=== PATIENT | male | born 1950 | race Caucasian/White ===

== ENCOUNTER 2017-01-14 19:26 | Inpatient (IN) | payer OTHER ==
[~2017-01-14] VITALS: Ht 185.4 cm; Wt 102.2 kg
[~2017-01-14 19:26] MED LIST: ALBUAER19 INH; RXC5 PO; SPRIN/30 INH
[2017-01-14] MEDS ORDERED: SYMIN160 INH (20:19)
[2017-01-14] MEDS ORDERED: MONT1TAB3 PO (20:19)
[2017-01-14] MEDS ORDERED: CIPR1TAB10 PO (20:19)
[2017-01-14] MEDS ORDERED: LISI-725 PO (20:19)
[2017-01-14] MEDS ORDERED: ASPI325T39 PO (20:20)
[2017-01-14] MEDS ORDERED: VNTHFA/IN INH (20:22)
[2017-01-14 21:40] LABS: BASO % 0.5 %; BASO ABS # 0.06 K/uL (0-0.2); COMPLETE YES; EOS % 2.2 %; HEMATOCRIT 43.3 % (42-52); IG% 0.4 %; LYMPH % 21.9 %; LYMPH ABS # 2.42 K/uL (1.2-3.4); MEAN CELL VOLUME 99.5 fL (80-100); MEAN CORPUSCULAR HEMOGLOBIN 34.7 pg (25-34); MEAN CORPUSCULAR HGB CONC 34.9 g/dl (32-36); MEAN PLATELET VOLUME 11.3 fL (7.4-10.4); MONO % 11.8 %; NEUT % 63.2 %; PLATELET COUNT 285 K/uL (130-400); RED BLOOD COUNT 4.35 M/uL (4.7-6.1); WHITE BLOOD COUNT 11.06 K/uL (4.8-10.8)
[2017-01-14 21:47] LABS: PARTIAL THROMBOPLASTIN RATIO 1.1
[2017-01-14 21:52] LABS: BUN/CREATININE RATIO 5.8 (10-20); CALCIUM 8.6 mg/dl (8.5-10.1); CREATININE 2.7 mg/dl (0.60-1.40); POTASSIUM 3.3 mmol/L (3.5-5.1)
--- NOTE | 2017-01-14 22:04 | DIAGNOSTIC IMAGING REPORT ---
SINGLE VIEW CHEST CLINICAL HISTORY: GI bleed. FINDINGS: 2 AP, portable, upright chest radiographs are compared to study dated 03/20/2014. The examination is degraded by portable technique and patient rotation. The heart is top normal for projection. The lungs appear hyperinflated hyperlucent. The appearance suggests obstructive physiology. Chronic interstitial thickening is similar to previous. No airspace consolidation or pleural effusion are identified. A small calcified granulomas noted on the right. No pneumothorax is seen. The skeletal structures are osteopenic. The bony thorax is grossly intact. IMPRESSION: Findings suggest obstructive physiology. There is no acute cardiopulmonary abnormality. Electronically signed by: Jono Monroy M.D. 01/14/2017 10:02 PM Dictated Date/Time: 01/14/2017 10:00 PM
[2017-01-14] MEDS ORDERED: POTASSIUM CHLORIDE 10 MEQ TABCR PO STA (22:53)
--- NOTE | 2017-01-14 23:17 | EMERGENCY ROOM VISIT NOTE ---
History Report prepared by [place]: Jama Richardson Under the Supervision of: Dr. Shiv Lenz D.O. First contact with patient: 20:49 Chief Complaint: RECTAL BLEEDING Stated Complaint: BLOOD IN STOOLS Nursing Triage Summary: Patient reports he had a colon infection and states "it's getting a little bit bloody." Patient reports bright red and dark blood with bowel movements. History of Present Illness The patient is a 66 year old male who presents to the Emergency Room with complaints of an episode of rectal bleeding today. He notes that he had blood with his bowel movements, and that it has been mostly bright red blood rather than stool. He also admits to having rectal pain which began last week. Source of History: patient Onset: earlier today Position: other (rectum) Quality: other (bright red blood in stool) Timing: other (episode) Note: The patient notes having rectal pain. Review of Systems See HPI for pertinent positives & negatives. A total of 10 systems reviewed and were otherwise negative. Past Medical & Surgical No past medical history stated. Family History No family history stated. Social History Smoking Status: Current Every Day Smoker Marital Status: Current/Historical Medications Scheduled Budesonide/Formoterol Fumarate (Symbicort 160/4.5 Inhaler ), 1 PUFFS INH BID Ciprofloxacin Hcl (Cipro), 500 MG PO BID Lisinopril (Zestril), 20 MG PO DAILY Montelukast Sodium (Singulair), 10 MG PO HS Tiotropium [place] (Spiriva Handihaler), 1 CAP INH DAILY Scheduled PRN Albuterol Hfa (Ventolin Hfa), 2 PUFFS INH Q6H PRN for Shortness of Breath Aspirin (Aspirin Ec), 325 MG PO BID PRN for Pain Allergies Coded Allergies: No Known Allergies (Unverified , 10/11/12) Physical Exam Vital Signs Date Time Temp Pulse Resp B/P Pulse Ox O2 Delivery O2 Flow Rate FiO2 01/14/17 21:47 86 20 152/92 94 Room Air 01/14/17 20:58 91 01/14/17 19:29 37.0 93 18 154/87 96 Room Air Physical Exam CONSTITUTIONAL/VITAL SIGNS: Reviewed / noted above. GENERAL: Non-toxic in appearance. INTEGUMENTARY: Warm, dry, and [place]. HEAD: Normocephalic. EYES: without scleral icterus or trauma. ENT/OROPHARYNX: clear and moist. LYMPHADENOPATHY/NECK: Is supple without lymphadenopathy or meningismus. RESPIRATORY: Lungs clear and equal. CARDIOVASCULAR: Regular rate and rhythm. GI/ABDOMEN: Soft and nontender. No organomegaly or pulsatile mass. No rebound or guarding. Normal bowel sounds. EXTREMITIES: Warm and well perfused. BACK: No CVA tenderness. NEUROLOGICAL: Intact without focal deficits. PSYCHIATRIC: normal affect. MUSCULOSKELETAL: Normally developed with good muscle tone. RECTAL: Did not reveal gross blood; light brown stool; guaiac negative. Medical Decision & Procedures Laboratory Results 01/14/17 20:55 Red Blood Count 4.35, Mean Corpuscular Volume 99.5, Mean Corpuscular Hemoglobin 34.7, Mean Corpuscular Hemoglobin Concent 34.9, Mean Platelet Volume 11.3, Neutrophils (%) (Auto) 63.2, Lymphocytes (%) (Auto) 21.9, Monocytes (%) (Auto) 11.8, Eosinophils (%) (Auto) 2.2, Basophils (%) (Auto) 0.5, Neutrophils # (Auto ) 6.99, Lymphocytes # (Auto) 2.42, Monocytes # (Auto) 1.31, Eosinophils # (Auto ) 0.24, Basophils # (Auto) 0.06 01/14/17 20:55 Test 01/14/17 20:55 White Blood Count 11.06 K/uL (4.8-10.8) Red Blood Count 4.35 M/uL (4.7-6.1) Hemoglobin 15.1 g/dL (14.0-18.0) Hematocrit 43.3 % (42-52) Mean Corpuscular Volume 99.5 fL (80-100) Mean Corpuscular Hemoglobin 34.7 pg (25-34) Mean Corpuscular Hemoglobin Concent 34.9 g/dl (32-36) Platelet Count 285 K/uL (130-400) Mean Platelet Volume 11.3 fL (7.4-10.4) Neutrophils (%) (Auto) 63.2 % Lymphocytes (%) (Auto) 21.9 % Monocytes (%) (Auto) 11.8 % Eosinophils (%) (Auto) 2.2 % Basophils (%) (Auto) 0.5 % Neutrophils # (Auto) 6.99 K/uL (1.4-6.5) Lymphocytes # (Auto) 2.42 K/uL (1.2-3.4) Monocytes # (Auto) 1.31 K/uL (0.11-0.59) Eosinophils # (Auto) 0.24 K/uL (0-0.5) Basophils # (Auto) 0.06 K/uL (0-0.2) RDW Standard Deviation 50.2 fL (36.4-46.3) RDW Coefficient of Variation 13.8 % (11.5-14.5) Immature Granulocyte % (Auto) 0.4 % Immature Granulocyte # (Auto) 0.04 K/uL (0.00-0.02) Prothrombin Time 11.0 SECONDS (9.0-12.0) Prothromb Time International Ratio 1.0 (0.9-1.1) Activated Partial Thromboplast Time 28.7 SECONDS (21.0-31.0) Partial Thromboplastin Ratio 1.1 Anion Gap 12.0 mmol/L (3-11) Est Creatinine Clear Calc Drug Dose 33.3 ml/min Estimated GFR () 27.0 Estimated GFR (Non- 23.3 BUN/Creatinine Ratio 5.8 (10-20) Calcium Level 8.6 mg/dl (8.5-10.1) Magnesium Level 2.0 mg/dl (1.8-2.4) ED Course 2049: Previous medical records were reviewed. The patient was evaluated in room C4. A complete history and physical examination was performed. 2239: Discussed the patient's case with Dr. Valera. The patient will be evaluated for further treatment and disposition. Medical Decision Differential diagnosis: Etiologies such as diverticulosis, AVM, coagulopathy, colitis, inflammatory bowel disease, malignancy, Nneka-Carter tear, esophagitis, peptic ulcer disease , variceal bleed, gastritis, epistaxis, fissure, hemorrhoids, as well as others were entertained. This is a 66-year-old male who presents to the ED with a chief complaint of some blood in his stools. The patient states that he noticed it tonight. He had several small episodes where there appeared to be some darkness and some liquid stool. He felt that it was possibly blood. He came in for evaluation of this. The patient denies having any other symptoms. His vital signs are normal. His physical exam was unremarkable. A rectal revealed light brown guaiac-negative stools. There is no evidence of bleeding in the rectal area. CBC is unremarkable. Creatinine is 2.7. Chemistry is otherwise unremarkable. Baseline creatinine based on laboratory studies from [facility] revealed that the patient's baseline is 0.7. Because of this, the patient be evaluated by the hospitalist for further inpatient evaluation. He did have a bowel movement here in his stool was light brown and had no blood in it. Consults Time Called: [phone] Consulting Physician: Dr. Valera - [facility] Returned Call: [phone] Discussed the patient's case with Dr. Valera. The patient will be evaluated for further treatment and disposition. Impression Primary Impression: ARF (acute renal failure) Scribe Attestation The scribe's documentation has been prepared under my direction and personally reviewed by me in its entirety. I confirm that the note above accurately reflects all work, treatment, procedures, and medical decision making performed by me. Departure Information Dispostion Being Evaluated By Hospitalist Referrals Lynn Patel M.D. (PCP) Patient Instructions My [facility]
[2017-01-14 23:21] LABS: THYROID STIMULATING HORMONE 0.508 uIu/ml (0.300-4.500)
[2017-01-14] MEDS: LACTATED RINGER'S 1000ML 1,000 ML IV SCH (23:39)
[2017-01-15 00:10] VITALS: BP 161/90; PULSE 82; TEMP 37.3; O2SAT 95; Ht 185.4 cm; Wt 102.2 kg
[2017-01-15] MEDS ORDERED: ACETAMINOPHEN 325 MG TAB PO PRN (00:45)
[2017-01-15] MEDS ORDERED: ONDANSETRON INJ 2 MG/ML 2 ML VIAL IV PRN (00:45)
[2017-01-15] MEDS ORDERED: LORAZEPAM 2 MG/ML 1 ML VIAL IV PRN ×2 (00:45→01:00)
[2017-01-15] MEDS ORDERED: GABAPENTIN 600 MG TAB PO SCH (01:00)
[2017-01-15] MEDS ORDERED: THIAMINE HCL INJ 100 MG in SYRINGE 9 ML IV ONE (02:00)
[2017-01-15 03:16] VITALS: BP 136/80; PULSE 82; TEMP 37.2; O2SAT 93
[2017-01-15] MEDS ORDERED: LORAZEPAM INJ 1 MG in SYRINGE 0.5 ML IV PRN (04:45)
[2017-01-15] MEDS ORDERED: LORAZEPAM INJ 0.5 MG in SYRINGE 0.75 ML IV PRN (04:45)
[2017-01-15] MEDS ORDERED: GABAPENTIN 600 MG TAB PO ONE (05:00)
[2017-01-15 05:47] LABS: URINE APPEARANCE CLOUDY (CLEAR); URINE BILIRUBIN NEG (NEG); URINE COLOR YELLOW; URINE NITRITE NEG (NEG); URINE SPECIFIC GRAVITY 1.003 (1.000-1.030); UROBILINOGEN NEG (NEG); ZZUR CULT IF INDIC CLEAN CATCH NO
[2017-01-15 05:48] LABS: MANUAL MICROSCOPIC REQUIRED? NO; REVIEW REQ? NO
[2017-01-15 06:21] LABS: BASO % 0.9 %; BASO ABS # 0.08 K/uL (0-0.2); COMPLETE YES; EOS % 2.6 %; IG% 0.2 %; LYMPH ABS # 2.13 K/uL (1.2-3.4); MEAN CELL VOLUME 97.9 fL (80-100); MEAN CORPUSCULAR HEMOGLOBIN 33.7 pg (25-34); MEAN CORPUSCULAR HGB CONC 34.4 g/dl (32-36); MEAN PLATELET VOLUME 10.7 fL (7.4-10.4); MONO % 12.2 %; NEUT % 60.1 %; PLATELET COUNT 255 K/uL (130-400); RED BLOOD COUNT 4.19 M/uL (4.7-6.1); WHITE BLOOD COUNT 8.86 K/uL (4.8-10.8)
--- NOTE | 2017-01-15 06:33 | HISTORY & PHYSICAL EXAMINATION ---
DATE OF ADMISSION: 01/14/2017 PRIMARY CARE DOCTOR: Dr. Patel. Hx obtained from px and records. CHIEF COMPLAINT: Abdominal pain and hematochezia. HISTORY OF PRESENT ILLNESS: Medical history significant for hypertension, COPD, ongoing tobacco abuse, alcohol abuse as per records, mood disorder as per records, seizure disorder as per records, colonic polyps as per records. Recent confinement last October 2012 for back surgery under orthopedic surgery. Few days hx of achy left-sided abdominal pain, good bowel movement. Px seen at PCP's office. Left lower quadrant tenderness on exam. Patient prescribed Cipro for possible diverticulitis. No Xrays done outpx. Symptoms worsened. At some point, some blood in the stools. No chest pain, no shortness of breath. Appetite fair. Some nausea, vomiting. Denies NSAID intake. At the Emergency Room, hem.occult negative. MEDICAL HISTORY: As above. Colonoscopy in 2012 showed 5-mm polyps. SURGERIES: She has had back surgery. HOME MEDICATIONS: Include lisinopril, Symbicort, aspirin, Spiriva. ALLERGIES: ALLERGIC TO MELOXICAM, ALTERED MENTAL STATUS. FAMILY HISTORY: Diabetes, heart disease. PERSONAL AND SOCIAL HISTORY: few cigars a day. Daily alcohol intake. Part-time scott. REVIEW OF SYSTEMS: As per HPI. All other ROS negative. PHYSICAL EXAMINATION: VITAL SIGNS: Blood pressure was noted to be 150/92, pulse rate 86, RR 20, temperature 36.7, sats 94 on room air. GENERAL: Noted to be overweight, slightly restless, anxious, no respiratory distress. SKIN: pallor HEENT : pale palp conjunctivae, dry buccal mucosa NECK: No JVD. supple CHEST: Clear to auscultation. HEART: Regular rate and rhythm. ABDOMEN: hypogastric tenderness. EXTREMITIES: No edema. no tenderness NEUROLOGIC: No gross focality. LAB WORK: White cell count 11, hemoglobin 15, platelets 285. Sodium 140, potassium 3.3, chloride 104, CO2 of 24, BUN 16, creatinine 2.7, glucose 95. CT abdomen and pelvis initial read, nonspecific perinephric stranding. ASSESSMENT: 1. Acute renal failure multifactorial : GI illness (ro Cdif) home meds contributory 2. hypertension, slightly elevated secondary to discomfort. 3. Hypokalemia secondary to illness. 4. hx colonic polyposis as per records 5. COPD, ongoing tobacco abuse pulmonary status at baseline 6. alcohol abuse as per records. PLAN: GMF Stool C. dif analgesia baseline UA, monitor creatinine response to IV fluids. replace potassium. hold home ACEI until creatinine at baseline DT precautions. DVT prophylaxis, SCDs re episodic LGIB Full code. MTDD
--- NOTE | 2017-01-15 06:49 | DIAGNOSTIC IMAGING REPORT ---
CT SCAN OF THE ABDOMEN AND PELVIS WITHOUT CONTRAST CLINICAL HISTORY: Left lower quadrant abdominal pain. Heme-positive stools. COMPARISON STUDY: No previous studies for comparison. TECHNIQUE: CT scan of the abdomen and pelvis was performed from the lung bases to the proximal femurs. Images are reviewed in the axial, sagittal, and coronal planes. IV contrast was not administered for this examination. CT DOSE: 826.66 mGy.cm FINDINGS: Lower chest: There is mild subpleural interstitial thickening. Liver: The unenhanced liver is normal in size, contour, and attenuation. There is no intrahepatic biliary ductal dilatation. Gallbladder: Unremarkable. Spleen: Normal in size and attenuation. Pancreas: Unremarkable. Adrenal glands: Unremarkable. Kidneys: No renal, ureteral, or bladder calculi are visualized. Bowel: There are no transition zones indicate bowel obstruction. The appendix appears normal. This tiny fat-containing umbilical hernia. There is no acute diverticulitis. Peritoneum: There is no intraperitoneal free air or abdominal ascites. There is a fat containing left inguinal hernia versus a lipomatous inguinal canal Vasculature: The abdominal aorta is normal in course and caliber. Adenopathy: None. Pelvic viscera: The bladder, and pelvic viscera are unremarkable. Skeletal structures: There are postsurgical changes present within the lumbar spine. IMPRESSION: 1. No evidence of bowel obstruction. No evidence of free air 2. Normal appendix. 3. No evidence of acute diverticulitis. 4. No renal, ureteral, or bladder calculi identified. Electronically signed by: Nilton Lobo M.D. 01/15/2017 6:47 AM Dictated Date/Time: 01/15/2017 6:45 AM
[2017-01-15 07:09] LABS: BUN/CREATININE RATIO 5.8 (10-20); CALCIUM 8.3 mg/dl (8.5-10.1); CREATININE 2.5 mg/dl (0.60-1.40); POTASSIUM 3.4 mmol/L (3.5-5.1)
[2017-01-15 08:03] VITALS: BP_SYST 117; BP_SYST 118; BP_DIAS 72; PULSE 71; TEMP 37; O2SAT 94
[2017-01-15] MEDS: TIOTROPIUM BROMIDE 5 PUFF/90 MCG INH INH SCH (09:54)
[2017-01-15] MEDS: MULTIVITAMIN TAB PO SCH (09:55)
[2017-01-15] MEDS: GABAPENTIN 100 MG CAP PO SCH ×2 (10:04→18:36)
[2017-01-15] MEDS: LACTATED RINGER'S 1000ML 1,000 ML IV SCH (10:06)
[2017-01-15 12:26] VITALS: O2SAT 95
[2017-01-15 13:48] VITALS: BP_SYST 151; BP_SYST 152; BP_DIAS 83; BP_DIAS 84; PULSE 74; TEMP 36.9; O2SAT 96
[2017-01-15 15:26] VITALS: BP 133/81; PULSE 74; TEMP 36.8; O2SAT 96
--- NOTE | 2017-01-15 18:00 | Progress Note ---
Medicine Progress Note Date & Time of Visit: Jan 15, 2017 at 17:48. Subjective patient states he feels ok overall denies weakness, nausea, abdominal pain no tremors, hallucinations no other symptoms Objective Last 8 Hrs Date Time Temp Pulse Resp B/P Pulse Ox O2 Delivery O2 Flow Rate FiO2 01/15/17 15:26 36.8 74 17 133/81 96 Room Air 01/15/17 13:48 36.9 74 18 152/84 96 Room Air 01/15/17 12:26 95 Room Air Physical Exam: General- oriented x 3, not in distress, speaks in sentences Head- atraumatic Eyes- anicteric Neck- no JVD Lungs- clear breath sounds bilaterally Heart- regular rhythm; no murmur,normal rate Abdomen- normal bowel sounds, soft, nontender Extremities- no pretibial edema, no calf tenderness Neuro- alert, oriented x 3; no gross focal deficits Skin- warm & dry Laboratory Results: Last 24 Hours Test 01/14/17 20:55 01/15/17 05:25 01/15/17 06:08 01/15/17 17:27 White Blood Count 11.06 K/uL 8.86 K/uL Red Blood Count 4.35 M/uL 4.19 M/uL Hemoglobin 15.1 g/dL 14.1 g/dL Hematocrit 43.3 % 41.0 % Mean Corpuscular Volume 99.5 fL 97.9 fL Mean Corpuscular Hemoglobin 34.7 pg 33.7 pg Mean Corpuscular Hemoglobin Concent 34.9 g/dl 34.4 g/dl Platelet Count 285 K/uL 255 K/uL Mean Platelet Volume 11.3 fL 10.7 fL Neutrophils (%) (Auto) 63.2 % 60.1 % Lymphocytes (%) (Auto) 21.9 % 24.0 % Monocytes (%) (Auto) 11.8 % 12.2 % Eosinophils (%) (Auto) 2.2 % 2.6 % Basophils (%) (Auto) 0.5 % 0.9 % Neutrophils # (Auto) 6.99 K/uL 5.32 K/uL Lymphocytes # (Auto) 2.42 K/uL 2.13 K/uL Monocytes # (Auto) 1.31 K/uL 1.08 K/uL Eosinophils # (Auto) 0.24 K/uL 0.23 K/uL Basophils # (Auto) 0.06 K/uL 0.08 K/uL RDW Standard Deviation 50.2 fL 49.2 fL RDW Coefficient of Variation 13.8 % 13.8 % Immature Granulocyte % (Auto) 0.4 % 0.2 % Immature Granulocyte # (Auto) 0.04 K/uL 0.02 K/uL Prothrombin Time 11.0 SECONDS Prothromb Time International Ratio 1.0 Activated Partial Thromboplast Time 28.7 SECONDS Partial Thromboplastin Ratio 1.1 Sodium Level 140 mmol/L 142 mmol/L Potassium Level 3.3 mmol/L 3.4 mmol/L Chloride Level 104 mmol/L 109 mmol/L Carbon Dioxide Level 24 mmol/L 24 mmol/L Anion Gap 12.0 mmol/L 9.0 mmol/L Blood Urea Nitrogen 16 mg/dl 15 mg/dl Creatinine 2.70 mg/dl 2.50 mg/dl Est Creatinine Clear Calc Drug Dose 33.3 ml/min 36.0 ml/min Estimated GFR () 27.0 29.7 Estimated GFR (Non- 23.3 25.6 BUN/Creatinine Ratio 5.8 5.8 Random Glucose 95 mg/dl 96 mg/dl Calcium Level 8.6 mg/dl 8.3 mg/dl Magnesium Level 2.0 mg/dl Total Bilirubin 0.5 mg/dl Direct Bilirubin 0.2 mg/dl Aspartate Amino Transf (AST/SGOT) 21 U/L Alanine Aminotransferase (ALT/SGPT) 24 U/L Alkaline Phosphatase 119 U/L Total Protein 7.5 gm/dl Albumin 3.3 gm/dl Thyroid Stimulating Hormone (TSH) 0.508 uIu/ml Urine Color YELLOW Urine Appearance CLOUDY Urine pH 6.0 Urine Specific [place] 1.003 Urine Protein NEG Urine Glucose (UA) NEG Urine Ketones NEG Urine Occult Blood NEG Urine Nitrite NEG Urine Bilirubin NEG Urine Urobilinogen NEG Urine Leukocyte Esterase TRACE Urine WBC (Auto) 1-5 /hpf Urine RBC (Auto) 0-4 /hpf Urine Hyaline Casts (Auto) 1-5 /lpf Urine Epithelial Cells (Auto) 10-20 /lpf Urine Bacteria (Auto) NEG Hepatitis C Antibody Screen NEG Date/Time Source Procedure Growth Status 01/15/17 05:25 Stool C.difficile Toxin B Gene (PCR) - Final No C. difficile toxin B gene detected Complete Assessment & Plan 66 year old male with history of Hypertension, COPD ACUTE RENAL FAILURE likely Pre renal from GI losses, Lisinopril - continue IV NSS - hold Lisinopril HYPOKALEMIA - likely from GI losses - check PRP this PM DIARRHEA - no melena/hematochezia - C diff negative - check stool cultures - PRN imodium, IV fluids HYPERTENSION -improved - hold Lisinopril alcohol abuse as per records. - no signs of withdrawal - on Gabapentin protocol, Ativan PRN hx colonic polyposis as per records COPD, ongoing tobacco abuse - not in exacerbation DVT prophylaxis SCDs Dispo pending Current Inpatient Medications: Current Inpatient Medications Medications (Trade) Dose Ordered Sig/Matthieu Route Start Time Stop Time Status Last Admin Dose Admin Acetaminophen (Tylenol Tab) 650 mg Q4H PRN PO 01/15/17 00:45 02/14/17 00:44 Hydromorphone HCl (Dilaudid Inj) 0.5 mg Q3H PRN IV 01/15/17 00:45 01/29/17 00:44 Oxycodone/ Acetaminophen (Percocet 5-325mg Tab) 1 tab Q6H PRN PO 01/15/17 00:45 01/29/17 00:44 Ondansetron HCl (Zofran Inj) 4 mg Q6H PRN IV 01/15/17 00:45 02/14/17 00:44 Multivitamins (Multivitamin Tab) 1 tab QAM PO 01/15/17 09:00 02/14/17 08:59 01/15/17 09:55 1 TAB Thiamine HCl (Vitamin B-1 Tab) 100 mg QAM PO 01/16/17 09:00 02/15/17 08:59 Folic Acid (Folvite Tab) 1 mg QAM PO 01/15/17 09:00 02/14/17 08:59 01/15/17 09:56 1 MG Montelukast Sodium (Singulair Tab) 10 mg HS PO 01/15/17 21:00 02/14/17 20:59 Tiotropium [place] (Spiriva Handihaler Inhaler) 1 puff DAILY INH 01/15/17 09:00 02/14/17 08:59 01/15/17 09:54 1 PUFF Gabapentin (Neurontin Tab) 600 mg DAILY@1600 PO 01/16/17 16:00 01/16/17 16:01 Gabapentin (Neurontin Cap) 400 mg DAILY@1600 PO 01/17/17 16:00 01/17/17 16:01 Gabapentin 200 mg 200 mg DAILY@1600 PO 01/18/17 16:00 01/18/17 16:01 Lorazepam 0.5 mg/ Syringe 1 ml @ 1 mls/min Q4H PRN IV 01/15/17 04:45 02/14/17 04:44 Lorazepam 1 mg/ Syringe 1 ml @ 1 mls/min ONE PRN IV 01/15/17 04:45 Sodium Chloride (Nss 1000ml) 1,000 ml @ 125 mls/hr Q8H IV 01/15/17 17:30 02/14/17 17:29
[2017-01-15] MEDS: SODIUM CHLORIDE 0.9% 1000ML 1,000 ML IV SCH (18:37)
[2017-01-15 18:48] LABS: BUN/CREATININE RATIO 5.7 (10-20); CALCIUM 8.4 mg/dl (8.5-10.1); CREATININE 2.3 mg/dl (0.60-1.40); POTASSIUM 3.8 mmol/L (3.5-5.1)
[2017-01-15] MEDS: OXYCODONE/ACETAMINOPHEN 5-325 TAB PO PRN (19:26)
[2017-01-15] MEDS: MONTELUKAST SOD 10 MG TAB PO SCH (21:36)
[2017-01-16 00:16] VITALS: BP 152/90; PULSE 67; TEMP 37; O2SAT 97
[2017-01-16] MEDS: SODIUM CHLORIDE 0.9% 1000ML 1,000 ML IV SCH ×3 (02:20→17:38)
[2017-01-16 03:38] VITALS: BP 158/84; PULSE 80; TEMP 37.1; O2SAT 97
[2017-01-16 07:09] LABS: BASO % 0.7 %; BASO ABS # 0.08 K/uL (0-0.2); COMPLETE YES; EOS % 2.3 %; HEMATOCRIT 39.5 % (42-52); IG% 0.2 %; LYMPH % 19.1 %; MEAN CORPUSCULAR HEMOGLOBIN 34.2 pg (25-34); MEAN CORPUSCULAR HGB CONC 34.2 g/dl (32-36); MEAN PLATELET VOLUME 11.5 fL (7.4-10.4); MONO % 12.2 %; NEUT % 65.5 %; PLATELET COUNT 233 K/uL (130-400); RED BLOOD COUNT 3.95 M/uL (4.7-6.1); WHITE BLOOD COUNT 11.02 K/uL (4.8-10.8)
[2017-01-16 07:20] LABS: BUN/CREATININE RATIO 5.4 (10-20); CREATININE 2.1 mg/dl (0.60-1.40); POTASSIUM 3.3 mmol/L (3.5-5.1)
[2017-01-16] MEDS: THIAMINE HCL 100 MG TAB PO SCH (09:03)
[2017-01-16] MEDS: TIOTROPIUM BROMIDE 5 PUFF/90 MCG INH INH SCH (09:03)
[2017-01-16] MEDS: MULTIVITAMIN TAB PO SCH (09:03)
[2017-01-16] MEDS: OXYCODONE/ACETAMINOPHEN 5-325 TAB PO PRN ×3 (09:08→21:18)
[2017-01-16 09:58] VITALS: BP 147/80; PULSE 81; TEMP 36.8; O2SAT 95
[2017-01-16 13:01] VITALS: BP 128/82; PULSE 76; TEMP 36.8; O2SAT 94
--- NOTE | 2017-01-16 14:34 | Progress Note ---
Medicine Progress Note Date & Time of Visit: Jan 16, 2017 at 14:32. Subjective patient seen resting in bed, comfortable diarrhea is improving, no abdominal pain no changes with urination denies weakness, dizziness no other symptoms Objective Last 8 Hrs Date Time Temp Pulse Resp B/P Pulse Ox O2 Delivery O2 Flow Rate FiO2 01/16/17 13:01 36.8 76 18 128/82 94 Room Air 01/16/17 09:58 36.8 81 18 147/80 95 Room Air 01/16/17 08:45 Room Air Physical Exam: General- oriented x 3, not in distress, speaks in sentences Eyes- anicteric Lungs- clear breath sounds bilaterally, no rales/wheeze Heart- regular rhythm; no murmur,normal rate Abdomen- normal bowel sounds, soft, nontender Extremities- no pretibial edema, no calf tenderness Neuro- alert, oriented x 3; no gross focal deficits Skin- warm & dry Laboratory Results: Last 24 Hours Test 01/15/17 18:15 01/16/17 06:20 01/16/17 14:30 Sodium Level 140 mmol/L 144 mmol/L Potassium Level 3.8 mmol/L 3.3 mmol/L Chloride Level 107 mmol/L 109 mmol/L Carbon Dioxide Level 24 mmol/L 26 mmol/L Anion Gap 9.0 mmol/L 9.0 mmol/L Blood Urea Nitrogen 13 mg/dl 11 mg/dl Creatinine 2.30 mg/dl 2.10 mg/dl Est Creatinine Clear Calc Drug Dose 39.1 ml/min 42.9 ml/min Estimated GFR () 32.8 36.6 Estimated GFR (Non- 28.3 31.6 BUN/Creatinine Ratio 5.7 5.4 Random Glucose 89 mg/dl 86 mg/dl Calcium Level 8.4 mg/dl 8.0 mg/dl White Blood Count 11.02 K/uL Red Blood Count 3.95 M/uL Hemoglobin 13.5 g/dL Hematocrit 39.5 % Mean Corpuscular Volume 100.0 fL Mean Corpuscular Hemoglobin 34.2 pg Mean Corpuscular Hemoglobin Concent 34.2 g/dl Platelet Count 233 K/uL Mean Platelet Volume 11.5 fL Neutrophils (%) (Auto) 65.5 % Lymphocytes (%) (Auto) 19.1 % Monocytes (%) (Auto) 12.2 % Eosinophils (%) (Auto) 2.3 % Basophils (%) (Auto) 0.7 % Neutrophils # (Auto) 7.23 K/uL Lymphocytes # (Auto) 2.10 K/uL Monocytes # (Auto) 1.34 K/uL Eosinophils # (Auto) 0.25 K/uL Basophils # (Auto) 0.08 K/uL RDW Standard Deviation 49.8 fL RDW Coefficient of Variation 13.5 % Immature Granulocyte % (Auto) 0.2 % Immature Granulocyte # (Auto) 0.02 K/uL Date/Time Source Procedure Growth Status 01/15/17 19:30 Stool Shiga Toxin Test Pending Received 01/15/17 19:30 Stool Stool Culture Pending Received Assessment & Plan 66 year old male with history of Hypertension, COPD ACUTE RENAL FAILURE - likely Pre renal from GI losses, Lisinopril - continue IV NSS - hold Lisinopril - improving HYPOKALEMIA - likely from GI losses - replace check magnesium DIARRHEA - no melena/hematochezia - C diff negative - check stool cultures - PRN imodium, IV fluids HYPERTENSION -improved - hold Lisinopril alcohol abuse as per records. - no signs of withdrawal - on Gabapentin protocol, Ativan PRN hx colonic polyposis as per records COPD, ongoing tobacco abuse - not in exacerbation DVT prophylaxis SCDs Dispo pending Current Inpatient Medications: Current Inpatient Medications Medications (Trade) Dose Ordered Sig/Matthieu Route Start Time Stop Time Status Last Admin Dose Admin Acetaminophen (Tylenol Tab) 650 mg Q4H PRN PO 01/15/17 00:45 02/14/17 00:44 Hydromorphone HCl (Dilaudid Inj) 0.5 mg Q3H PRN IV 01/15/17 00:45 01/29/17 00:44 Oxycodone/ Acetaminophen (Percocet 5-325mg Tab) 1 tab Q6H PRN PO 01/15/17 00:45 01/29/17 00:44 01/16/17 09:08 1 TAB Ondansetron HCl (Zofran Inj) 4 mg Q6H PRN IV 01/15/17 00:45 02/14/17 00:44 Multivitamins (Multivitamin Tab) 1 tab QAM PO 01/15/17 09:00 02/14/17 08:59 01/16/17 09:03 1 TAB Thiamine HCl (Vitamin B-1 Tab) 100 mg QAM PO 01/16/17 09:00 02/15/17 08:59 01/16/17 09:03 100 MG Folic Acid (Folvite Tab) 1 mg QAM PO 01/15/17 09:00 02/14/17 08:59 01/16/17 09:03 1 MG Montelukast Sodium (Singulair Tab) 10 mg HS PO 01/15/17 21:00 02/14/17 20:59 01/15/17 21:36 10 MG Tiotropium [place] (Spiriva Handihaler Inhaler) 1 puff DAILY INH 01/15/17 09:00 02/14/17 08:59 01/16/17 09:03 1 PUFF Gabapentin (Neurontin Tab) 600 mg DAILY@1600 PO 01/16/17 16:00 01/16/17 16:01 Gabapentin (Neurontin Cap) 400 mg DAILY@1600 PO 01/17/17 16:00 01/17/17 16:01 Gabapentin 200 mg 200 mg DAILY@1600 PO 01/18/17 16:00 01/18/17 16:01 Lorazepam 0.5 mg/ Syringe 1 ml @ 1 mls/min Q4H PRN IV 01/15/17 04:45 02/14/17 04:44 Lorazepam 1 mg/ Syringe 1 ml @ 1 mls/min ONE PRN IV 01/15/17 04:45 Sodium Chloride (Nss 1000ml) 1,000 ml @ 125 mls/hr Q8H IV 01/15/17 17:30 02/14/17 17:29 01/16/17 09:08 125 MLS/HR Loperamide HCl (Imodium Cap) 2 mg UD PRN PO 01/15/17 18:00 02/14/17 17:59
[2017-01-16 14:59] VITALS: BP 128/72; PULSE 71; TEMP 36.9; O2SAT 96
[2017-01-16] MEDS ORDERED: POTASSIUM CHLORIDE 20 MEQ TABCR PO ONE (15:15)
[2017-01-16] MEDS: LOPERAMIDE HCL 2 MG CAP PO PRN (15:32)
[2017-01-16] MEDS ORDERED: GABAPENTIN 600 MG TAB PO SCH (16:00)
[2017-01-16] MEDS: MONTELUKAST SOD 10 MG TAB PO SCH (21:17)
[2017-01-16 22:51] VITALS: BP 139/77; PULSE 69; TEMP 37.1; O2SAT 94
[2017-01-16] MEDS: HYDROmorphone INJ 0.5 MG/0.5 ML SYR IV PRN (23:15)
[2017-01-17] VITALS (7 sets, daily range): BP systolic 119–196; BP diastolic 82–112; PULSE 72–86; TEMP 36.4–37.1; O2SAT 94–97
[2017-01-17] MEDS: SODIUM CHLORIDE 0.9% 1000ML 1,000 ML IV SCH ×3 (01:08→17:18)
[2017-01-17] MEDS: LOPERAMIDE HCL 2 MG CAP PO PRN (01:23)
[2017-01-17 06:19] LABS: BASO % 1.2 %; BASO ABS # 0.11 K/uL (0-0.2); COMPLETE YES; EOS % 2.8 %; IG% 0.3 %; LYMPH ABS # 2.26 K/uL (1.2-3.4); MEAN CELL VOLUME 101.5 fL (80-100); MEAN CORPUSCULAR HEMOGLOBIN 34.3 pg (25-34); MEAN CORPUSCULAR HGB CONC 33.8 g/dl (32-36); MEAN PLATELET VOLUME 11.1 fL (7.4-10.4); MONO % 13.5 %; NEUT % 58.2 %; PLATELET COUNT 220 K/uL (130-400); RED BLOOD COUNT 3.94 M/uL (4.7-6.1); WHITE BLOOD COUNT 9.42 K/uL (4.8-10.8)
[2017-01-17 06:57] LABS: BUN/CREATININE RATIO 5.4 (10-20); CALCIUM 7.8 mg/dl (8.5-10.1); CREATININE 2.1 mg/dl (0.60-1.40)
[2017-01-17] MEDS: OXYCODONE/ACETAMINOPHEN 5-325 TAB PO PRN ×3 (07:43→22:17)
[2017-01-17] MEDS: TIOTROPIUM BROMIDE 5 PUFF/90 MCG INH INH SCH (08:46)
[2017-01-17] MEDS: MULTIVITAMIN TAB PO SCH (08:48)
[2017-01-17] MEDS: THIAMINE HCL 100 MG TAB PO SCH (08:48)
[2017-01-17] MEDS ORDERED: AMLODIPINE BESYLATE 5 MG TAB PO ONE ×2 (15:40→21:00)
[2017-01-17] MEDS ORDERED: GABAPENTIN 400 MG CAP PO SCH (16:00)
--- NOTE | 2017-01-17 16:09 | Progress Note ---
Medicine Progress Note Date & Time of Visit: Jan 17, 2017 at 16:06. Subjective patient states he feels ok today diarrhea continues to improve denies abdominal pain, nausea, dyspnea no other symptoms Objective Last 8 Hrs Date Time Temp Pulse Resp B/P Pulse Ox O2 Delivery O2 Flow Rate FiO2 01/17/17 15:32 36.9 72 18 148/90 95 Room Air Physical Exam: General- oriented x 3, not in distress, speaks in sentences Eyes- anicteric Lungs- clear breath sounds, no rales b/l Heart- regular rhythm; no murmur,normal rate Abdomen- normal bowel sounds, soft, nontender Extremities- no pretibial edema, no calf tenderness Neuro- alert, oriented x 3; no gross focal deficits Skin- warm & dry Laboratory Results: Last 24 Hours Test 01/17/17 05:57 White Blood Count 9.42 K/uL Red Blood Count 3.94 M/uL Hemoglobin 13.5 g/dL Hematocrit 40.0 % Mean Corpuscular Volume 101.5 fL Mean Corpuscular Hemoglobin 34.3 pg Mean Corpuscular Hemoglobin Concent 33.8 g/dl Platelet Count 220 K/uL Mean Platelet Volume 11.1 fL Neutrophils (%) (Auto) 58.2 % Lymphocytes (%) (Auto) 24.0 % Monocytes (%) (Auto) 13.5 % Eosinophils (%) (Auto) 2.8 % Basophils (%) (Auto) 1.2 % Neutrophils # (Auto) 5.49 K/uL Lymphocytes # (Auto) 2.26 K/uL Monocytes # (Auto) 1.27 K/uL Eosinophils # (Auto) 0.26 K/uL Basophils # (Auto) 0.11 K/uL RDW Standard Deviation 51.3 fL RDW Coefficient of Variation 13.7 % Immature Granulocyte % (Auto) 0.3 % Immature Granulocyte # (Auto) 0.03 K/uL Sodium Level 146 mmol/L Potassium Level 4.0 mmol/L Chloride Level 115 mmol/L Carbon Dioxide Level 23 mmol/L Anion Gap 8.0 mmol/L Blood Urea Nitrogen 11 mg/dl Creatinine 2.10 mg/dl Est Creatinine Clear Calc Drug Dose 42.9 ml/min Estimated GFR () 36.6 Estimated GFR (Non- 31.6 BUN/Creatinine Ratio 5.4 Random Glucose 86 mg/dl Calcium Level 7.8 mg/dl Assessment & Plan 66 year old male with history of Hypertension, COPD ACUTE RENAL FAILURE - likely Pre renal from GI losses, Lisinopril - crea 2.7 to 2.1 - continue IV NSS - hold Lisinopril - improving HYPOKALEMIA - likely from GI losses - replaced DIARRHEA - no melena/hematochezia - C diff negative - stool cultures: negative - PRN imodium, IV fluids HYPERTENSION - elevated start Norvasc 2.5mg po daily - hold Lisinopril alcohol abuse as per records. - no signs of withdrawal - on Gabapentin protocol, Ativan PRN hx colonic polyposis as per records - presented with rectal bleed - no recurrence colonoscopy as outpatient COPD, ongoing tobacco abuse - not in exacerbation DVT prophylaxis SCDs Lovenox/Heparin contraindicated due to episode of rectal bleed Dispo pending anticipate d/c home when crea improves near baseline of 1 Current Inpatient Medications: Current Inpatient Medications Medications (Trade) Dose Ordered Sig/Mattiheu Route Start Time Stop Time Status Last Admin Dose Admin Acetaminophen (Tylenol Tab) 650 mg Q4H PRN PO 01/15/17 00:45 02/14/17 00:44 Hydromorphone HCl (Dilaudid Inj) 0.5 mg Q3H PRN IV 01/15/17 00:45 01/29/17 00:44 01/16/17 23:15 0.5 MG Oxycodone/ Acetaminophen (Percocet 5-325mg Tab) 1 tab Q6H PRN PO 01/15/17 00:45 01/29/17 00:44 01/17/17 07:43 1 TAB Ondansetron HCl (Zofran Inj) 4 mg Q6H PRN IV 01/15/17 00:45 02/14/17 00:44 Multivitamins (Multivitamin Tab) 1 tab QAM PO 01/15/17 09:00 02/14/17 08:59 01/17/17 08:48 1 TAB Thiamine HCl (Vitamin B-1 Tab) 100 mg QAM PO 01/16/17 09:00 02/15/17 08:59 01/17/17 08:48 100 MG Folic Acid (Folvite Tab) 1 mg QAM PO 01/15/17 09:00 02/14/17 08:59 01/17/17 08:47 1 MG Montelukast Sodium (Singulair Tab) 10 mg HS PO 01/15/17 21:00 02/14/17 20:59 01/16/17 21:17 10 MG Tiotropium [place] (Spiriva Handihaler Inhaler) 1 puff DAILY INH 01/15/17 09:00 02/14/17 08:59 01/17/17 08:46 1 PUFF Gabapentin (Neurontin Cap) 400 mg DAILY@1600 PO 01/17/17 16:00 01/17/17 16:01 Gabapentin 200 mg 200 mg DAILY@1600 PO 01/18/17 16:00 01/18/17 16:01 Lorazepam 0.5 mg/ Syringe 1 ml @ 1 mls/min Q4H PRN IV 01/15/17 04:45 02/14/17 04:44 01/16/17 23:46 1 MLS/MIN Lorazepam 1 mg/ Syringe 1 ml @ 1 mls/min ONE PRN IV 01/15/17 04:45 Sodium Chloride (Nss 1000ml) 1,000 ml @ 125 mls/hr Q8H IV 01/15/17 17:30 02/14/17 17:29 01/17/17 09:58 125 MLS/HR Loperamide HCl (Imodium Cap) 2 mg UD PRN PO 01/15/17 18:00 02/14/17 17:59 01/17/17 01:23 2 MG
[2017-01-17] MEDS: HYDROmorphone INJ 0.5 MG/0.5 ML SYR IV PRN (19:47)
[2017-01-17] MEDS: MONTELUKAST SOD 10 MG TAB PO SCH (22:15)
[2017-01-18] VITALS (7 sets, daily range): BP systolic 125–178; BP diastolic 71–92; PULSE 73–85; TEMP 36.8–37; O2SAT 93–96
[2017-01-18] MEDS: SODIUM CHLORIDE 0.9% 1000ML 1,000 ML IV SCH ×3 (02:45→19:06)
[2017-01-18 05:43] LABS: BASO % 0.9 %; BASO ABS # 0.08 K/uL (0-0.2); COMPLETE YES; EOS % 2.8 %; HEMATOCRIT 39.9 % (42-52); IG% 0.3 %; LYMPH % 28.2 %; LYMPH ABS # 2.45 K/uL (1.2-3.4); MEAN CELL VOLUME 101.8 fL (80-100); MEAN CORPUSCULAR HEMOGLOBIN 34.2 pg (25-34); MEAN CORPUSCULAR HGB CONC 33.6 g/dl (32-36); MEAN PLATELET VOLUME 11.3 fL (7.4-10.4); NEUT % 54.8 %; PLATELET COUNT 239 K/uL (130-400); RED BLOOD COUNT 3.92 M/uL (4.7-6.1); WHITE BLOOD COUNT 8.68 K/uL (4.8-10.8)
[2017-01-18 06:20] LABS: BUN/CREATININE RATIO 5.9 (10-20); CALCIUM 8.1 mg/dl (8.5-10.1); CREATININE 2.1 mg/dl (0.60-1.40); POTASSIUM 3.8 mmol/L (3.5-5.1)
[2017-01-18] MEDS: OXYCODONE/ACETAMINOPHEN 5-325 TAB PO PRN ×2 (07:39→15:48)
[2017-01-18] MEDS: AMLODIPINE BESYLATE 5 MG TAB PO SCH (08:13)
[2017-01-18] MEDS: MULTIVITAMIN TAB PO SCH (08:25)
[2017-01-18] MEDS: TIOTROPIUM BROMIDE 5 PUFF/90 MCG INH INH SCH (08:25)
[2017-01-18] MEDS: THIAMINE HCL 100 MG TAB PO SCH (08:26)
[2017-01-18] MEDS ORDERED: AMLODIPINE BESYLATE 5 MG TAB PO SCH (09:00)
[2017-01-18] MEDS ORDERED: ALBUTEROL HFA 8 GM INHALER INH PRN (09:45)
[2017-01-18] MEDS ORDERED: CLONIDINE HCL 0.1 MG TAB PO PRN (10:00)
--- NOTE | 2017-01-18 12:00 | NEPHROLOGY CONSULTATION ---
DATE OF CONSULTATION: 01/18/2017 ATTENDING OF RECORD: Dr. Mendoza. REASON FOR CONSULTATION: ALIZA. HISTORY OF PRESENT ILLNESS: This is a 66-year-old male with underlying history of hypertension for several years as well as active tobacco abuse, with remote history of mobic use but none for several months. Patient denies any diabetes. No heart attacks or strokes or cancers. The patient has had several back surgeries and does suffer from chronic back pain. The patient presented to the outpatient clinic with left-sided abdominal pain, seen in office and prescribed Cipro for possible diverticulitis. Symptoms continued to worsen and the patient presented to the hospital with acute renal failure, creatinine was up to 2.7 on presentation. His lisinopril was stopped. The patient was given IV fluids and creatinine has improved from 2.7 down to 2.1; however, has been 2.1 for the last 3 days with a baseline kidney function under 1. The patient symptomatically improved and left-sided abdominal pain much improved. The patient is up walking around, eating well. C. diff was negative, stool cultures were negative and no NSAIDs or contrast were given recently. A CT scan without contrast showed no renal calculi visualized and the patient is urinating well about 2 liters a day and tolerating the IV fluids well. Urine is bland on presentation with only 1-5 wbc's, 0-4 rbc's, no protein, no signs of infection, just trace leukocyte esterase and blood pressure relatively well controlled. Patients blood pressure was elevated on the 5th transiently, but then did improve back into a goal range and is currently on Norvasc to help control the blood pressure and normal saline to help improve kidney function. PAST MEDICAL HISTORY: Spinal stenosis, hypertension, and tobacco abuse, COPD, alcohol abuse. PAST SURGICAL HISTORY: Laminectomy to the back and lumbar spinal fusion and tonsillectomy. SOCIAL HISTORY: with 7 children. Smoked 1 pack per day for 50 years and continues to smoke. Drinks 5-6 beers per day. No drugs. FAMILY HISTORY: No renal disease in family. Heart disease is significant in family. REVIEW OF SYSTEMS: No fevers or chills. He has been complaining about a headache for the last month. No blurry vision, no dysphagia. Does have some shortness of breath with exertion. No smoker's cough. No chest pain. No more abdominal pain, no nausea, vomiting, urinating well, moving bowels well. No rash or itching. All other review of systems otherwise negative. CURRENT MEDICATIONS: Norvasc 5 mg a day, folic acid 1 mg daily, Neurontin 200 mg daily, Singulair 10 mg at night, multivitamin daily, normal saline 125 mL an hour, thiamine 100 mg daily, and Spiriva inhaler daily. PHYSICAL EXAMINATION: VITAL SIGNS: Temperature 37, pulse 85, respiratory rate 19, blood pressure 125/75, satting 96% on room air. GENERAL: Awake, alert, oriented x3. EYES: No scleral icterus. ENT: Moist mucous membranes. NECK: Supple. PULMONARY: Clear to auscultation. CARDIAC: Regular rate and rhythm. ABDOMEN: Bowel sounds positive, soft, nontender, nondistended. EXTREMITIES: No clubbing, cyanosis or edema. NEUROLOGICALLY: Nonfocal. DERMATOLOGIC: No rash or ulcers noted. LABORATORY DATA: UA was bland on the 3rd with just trace leukocyte esterase, hep C negative. Sodium level was 143, potassium is 3.8, chloride is 110, bicarbonate is 26, BUN is 12, creatinine is 2.1, and glucose is 80. Calcium is 8.1, mag is 1.9. White count is 8.6, H\T\H 13 and 39, platelet count is 239. INR is 1. Albumin was 3.3 on admission. TSH level was normal at 0.508. Stool cultures - C. diff is negative. IMAGING DATA: Chest x-ray showed obstructive physiology, no acute cardiopulmonary abnormality. IMPRESSION AND PLAN: 1. Acute kidney injury in the setting of a presumed diverticulitis. Appears to be acute tubular necrosis in nature. CT scan did not show any obstruction. No kidney stones. Urinalysis is bland. Will continue aggressive IV fluids. The patient's last creatinine was a year ago, which was normal at 0.5. The patient has been having a headache for the past month, so unclear if may be a kidney function may have progressed over the past year. Unclear what his true baseline creatinine since no recent labs. It may take several months to improve back down to baseline. Does have some underlying hypertension and smoking history, so despite a normal creatinine last year, could have some findings of medical renal disease on imaging. For now, would continue the IV fluids. Blood pressures well controlled. Continue to avoid the OBED. With no blood in the urine, doubt the patient has an underlying GN type process. As long as the patient is eating and drinking and creatinine not worsening, okay from renal perspective, to be discharged with repeat labs in a week and follow up with me in a couple weeks in [place] to follow the kidney function trend. I appreciate the consultation. JIM
--- NOTE | 2017-01-18 15:30 | Progress Note ---
Medicine Progress Note Date & Time of Visit: Jan 18, 2017 at 15:25. Subjective patient seen sitting up in bed comfortable states he feels ok overall denies dyspnea, cough no weakness, abdominal pain, nausea no changes with urination Objective Last 8 Hrs Date Time Temp Pulse Resp B/P Pulse Ox O2 Delivery O2 Flow Rate FiO2 01/18/17 15:14 36.8 84 18 161/89 93 Room Air 01/18/17 12:58 37.0 73 15 148/84 95 Room Air 01/18/17 09:58 85 125/75 01/18/17 09:14 96 Room Air 01/18/17 08:21 37.0 78 19 178/92 96 Room Air 01/18/17 08:00 Room Air Physical Exam: General- oriented x 3, not in distress, speaks in sentences Eyes- anicteric Lungs- mild rhonchi at the bases, no wheezes Heart- regular rhythm; no murmur,normal rate Abdomen- normal bowel sounds, soft, nontender Extremities- no pretibial edema, no calf tenderness Neuro- alert, oriented x 3; no gross focal deficits Skin- warm & dry Laboratory Results: Last 24 Hours Test 01/18/17 05:10 White Blood Count 8.68 K/uL Red Blood Count 3.92 M/uL Hemoglobin 13.4 g/dL Hematocrit 39.9 % Mean Corpuscular Volume 101.8 fL Mean Corpuscular Hemoglobin 34.2 pg Mean Corpuscular Hemoglobin Concent 33.6 g/dl Platelet Count 239 K/uL Mean Platelet Volume 11.3 fL Neutrophils (%) (Auto) 54.8 % Lymphocytes (%) (Auto) 28.2 % Monocytes (%) (Auto) 13.0 % Eosinophils (%) (Auto) 2.8 % Basophils (%) (Auto) 0.9 % Neutrophils # (Auto) 4.75 K/uL Lymphocytes # (Auto) 2.45 K/uL Monocytes # (Auto) 1.13 K/uL Eosinophils # (Auto) 0.24 K/uL Basophils # (Auto) 0.08 K/uL RDW Standard Deviation 50.8 fL RDW Coefficient of Variation 13.6 % Immature Granulocyte % (Auto) 0.3 % Immature Granulocyte # (Auto) 0.03 K/uL Sodium Level 143 mmol/L Potassium Level 3.8 mmol/L Chloride Level 110 mmol/L Carbon Dioxide Level 26 mmol/L Anion Gap 7.0 mmol/L Blood Urea Nitrogen 12 mg/dl Creatinine 2.10 mg/dl Est Creatinine Clear Calc Drug Dose 42.9 ml/min Estimated GFR () 36.6 Estimated GFR (Non- 31.6 BUN/Creatinine Ratio 5.9 Random Glucose 80 mg/dl Calcium Level 8.1 mg/dl Assessment & Plan 66 year old male with history of Hypertension, COPD ACUTE RENAL FAILURE - likely Pre renal from GI losses, Lisinopril - crea 2.7 to 2.1-- 2.1 x 3 days now - Nephrology consulted - continue IV NSS, decrease to 80cc/hr if crea not worsening, may be discharged to home tomorrow close PCP ff up and crea re-check - hold Lisinopril HYPOKALEMIA - likely from GI losses - replaced DIARRHEA - no melena/hematochezia - C diff negative - stool cultures: negative - PRN imodium, IV fluids HYPERTENSION - elevated - Lisinopril held for now changed to Amlodipine 5mg daily alcohol abuse as per records. - no signs of withdrawal - on Gabapentin protocol, Ativan PRN hx colonic polyposis as per records - presented with rectal bleed - no recurrence colonoscopy as outpatient COPD, ongoing tobacco abuse - not in exacerbation DVT prophylaxis SCDs Lovenox/Heparin contraindicated due to episode of rectal bleed Dispo pending anticipate d/c home when crea improves or at least does not worsen Current Inpatient Medications: Current Inpatient Medications Medications (Trade) Dose Ordered Sig/Matthieu Route Start Time Stop Time Status Last Admin Dose Admin Acetaminophen (Tylenol Tab) 650 mg Q4H PRN PO 01/15/17 00:45 02/14/17 00:44 01/17/17 23:38 650 MG Hydromorphone HCl (Dilaudid Inj) 0.5 mg Q3H PRN IV 01/15/17 00:45 01/29/17 00:44 01/17/17 19:47 0.5 MG Oxycodone/ Acetaminophen (Percocet 5-325mg Tab) 1 tab Q6H PRN PO 01/15/17 00:45 01/29/17 00:44 01/18/17 07:39 1 TAB Ondansetron HCl (Zofran Inj) 4 mg Q6H PRN IV 01/15/17 00:45 02/14/17 00:44 Multivitamins (Multivitamin Tab) 1 tab QAM PO 01/15/17 09:00 02/14/17 08:59 01/18/17 08:25 1 TAB Thiamine HCl (Vitamin B-1 Tab) 100 mg QAM PO 01/16/17 09:00 02/15/17 08:59 01/18/17 08:26 100 MG Folic Acid (Folvite Tab) 1 mg QAM PO 01/15/17 09:00 02/14/17 08:59 01/18/17 08:26 1 MG Montelukast Sodium (Singulair Tab) 10 mg HS PO 01/15/17 21:00 02/14/17 20:59 01/17/17 22:15 10 MG Tiotropium [place] (Spiriva Handihaler Inhaler) 1 puff DAILY INH 01/15/17 09:00 02/14/17 08:59 01/18/17 08:25 1 PUFF Gabapentin 200 mg 200 mg DAILY@1600 PO 01/18/17 16:00 01/18/17 16:01 Lorazepam 0.5 mg/ Syringe 1 ml @ 1 mls/min Q4H PRN IV 01/15/17 04:45 02/14/17 04:44 01/16/17 23:46 1 MLS/MIN Lorazepam 1 mg/ Syringe 1 ml @ 1 mls/min ONE PRN IV 01/15/17 04:45 Sodium Chloride (Nss 1000ml) 1,000 ml @ 125 mls/hr Q8H IV 01/15/17 17:30 02/14/17 17:29 01/18/17 09:58 125 MLS/HR Loperamide HCl (Imodium Cap) 2 mg UD PRN PO 01/15/17 18:00 02/14/17 17:59 01/17/17 01:23 2 MG Amlodipine Besylate (Norvasc Tab) 5 mg QAM PO 01/18/17 09:00 02/17/17 08:59 01/18/17 08:13 5 MG Albuterol (Ventolin Hfa Inhaler) 2 puffs Q4H PRN INH 01/18/17 09:45 02/17/17 09:44 Clonidine HCl (Catapres Tab) 0.1 mg Q6H PRN PO 01/18/17 10:00 02/17/17 09:59
[2017-01-18] MEDS ORDERED: GABAPENTIN 100 MG CAP PO SCH (16:00)
[2017-01-18] MEDS: MONTELUKAST SOD 10 MG TAB PO SCH (20:57)
[2017-01-19] MEDS: SODIUM CHLORIDE 0.9% 1000ML 1,000 ML IV SCH (05:42)
[2017-01-19 07:07] LABS: BASO % 1.1 %; BASO ABS # 0.08 K/uL (0-0.2); COMPLETE YES; EOS % 2.9 %; HEMATOCRIT 38.5 % (42-52); IG% 0.1 %; LYMPH ABS # 1.81 K/uL (1.2-3.4); MEAN CORPUSCULAR HEMOGLOBIN 33.9 pg (25-34); MEAN CORPUSCULAR HGB CONC 33.5 g/dl (32-36); MEAN PLATELET VOLUME 11.4 fL (7.4-10.4); NEUT % 57.9 %; PLATELET COUNT 242 K/uL (130-400); RED BLOOD COUNT 3.81 M/uL (4.7-6.1); WHITE BLOOD COUNT 7.55 K/uL (4.8-10.8)
[2017-01-19 07:38] LABS: BUN/CREATININE RATIO 8.1 (10-20); CALCIUM 8.1 mg/dl (8.5-10.1); CREATININE 1.7 mg/dl (0.60-1.40); POTASSIUM 3.8 mmol/L (3.5-5.1)
[2017-01-19 07:48] VITALS: BP 159/86; PULSE 81; TEMP 36.5; O2SAT 96
[2017-01-19] MEDS: AMLODIPINE BESYLATE 5 MG TAB PO SCH (08:24)
[2017-01-19] MEDS: MULTIVITAMIN TAB PO SCH (08:24)
[2017-01-19] MEDS: THIAMINE HCL 100 MG TAB PO SCH (08:24)
--- NOTE | 2017-01-19 08:47 | Nephrology Progress Note ---
Nephrology Progress Note Date of Service: Jan 19, 2017. Subjective 66 yo male with jas/atn slow to recover. pt doing much better. no more pain. drinking well. tolerating the iv fluids well. Objective Date Time Temp Pulse Resp B/P Pulse Ox O2 Delivery O2 Flow Rate FiO2 01/19/17 07:48 36.5 81 18 159/86 96 Room Air 01/18/17 23:33 36.9 81 16 136/71 96 Room Air 01/18/17 23:25 Room Air 01/18/17 15:50 Room Air 01/18/17 15:14 36.8 84 18 161/89 93 Room Air 01/18/17 12:58 37.0 73 15 148/84 95 Room Air 01/18/17 09:58 85 125/75 01/18/17 09:14 96 Room Air Physical Exam: General-aaox3 Eyes-no scleral icterus ENT-mmm Neck-supple Lungs-cta Heart-rrr Abdomen-bs+ s/nt/nd Extremities-no c/c/e Neuro-nonfocal Current Inpatient Medications Medications (Trade) Dose Ordered Sig/Matthieu Route Start Time Stop Time Status Last Admin Dose Admin Acetaminophen (Tylenol Tab) 650 mg Q4H PRN PO 01/15/17 00:45 02/14/17 00:44 01/17/17 23:38 650 MG Hydromorphone HCl (Dilaudid Inj) 0.5 mg Q3H PRN IV 01/15/17 00:45 01/29/17 00:44 01/17/17 19:47 0.5 MG Oxycodone/ Acetaminophen (Percocet 5-325mg Tab) 1 tab Q6H PRN PO 01/15/17 00:45 01/29/17 00:44 01/18/17 15:48 1 TAB Ondansetron HCl (Zofran Inj) 4 mg Q6H PRN IV 01/15/17 00:45 02/14/17 00:44 Multivitamins (Multivitamin Tab) 1 tab QAM PO 01/15/17 09:00 02/14/17 08:59 01/19/17 08:24 1 TAB Thiamine HCl (Vitamin B-1 Tab) 100 mg QAM PO 01/16/17 09:00 02/15/17 08:59 01/19/17 08:24 100 MG Folic Acid (Folvite Tab) 1 mg QAM PO 01/15/17 09:00 02/14/17 08:59 01/19/17 08:23 1 MG Montelukast Sodium (Singulair Tab) 10 mg HS PO 01/15/17 21:00 02/14/17 20:59 01/18/17 20:57 10 MG Tiotropium [place] 1 puff 1 puff DAILY INH 01/15/17 09:00 02/14/17 08:59 01/18/17 08:25 1 PUFF Lorazepam 0.5 mg/ Syringe 1 ml @ 1 mls/min Q4H PRN IV 01/15/17 04:45 02/14/17 04:44 01/16/17 23:46 1 MLS/MIN Lorazepam 1 mg/ Syringe 1 ml @ 1 mls/min ONE PRN IV 01/15/17 04:45 Sodium Chloride (Nss 1000ml) 1,000 ml @ 80 mls/hr [id number] IV 01/15/17 17:30 02/17/17 17:29 01/19/17 05:42 80 MLS/HR Loperamide HCl (Imodium Cap) 2 mg UD PRN PO 01/15/17 18:00 02/14/17 17:59 01/17/17 01:23 2 MG Amlodipine Besylate (Norvasc Tab) 5 mg QAM PO 01/18/17 09:00 02/17/17 08:59 01/19/17 08:24 5 MG Albuterol (Ventolin Hfa Inhaler) 2 puffs Q4H PRN INH 01/18/17 09:45 02/17/17 09:44 Clonidine HCl (Catapres Tab) 0.1 mg Q6H PRN PO 01/18/17 10:00 02/17/17 09:59 01/18/17 17:30 0.1 MG Last 24 Hours Test 01/19/17 06:43 White Blood Count 7.55 K/uL Red Blood Count 3.81 M/uL Hemoglobin 12.9 g/dL Hematocrit 38.5 % Mean Corpuscular Volume 101.0 fL Mean Corpuscular Hemoglobin 33.9 pg Mean Corpuscular Hemoglobin Concent 33.5 g/dl Platelet Count 242 K/uL Mean Platelet Volume 11.4 fL Neutrophils (%) (Auto) 57.9 % Lymphocytes (%) (Auto) 24.0 % Monocytes (%) (Auto) 14.0 % Eosinophils (%) (Auto) 2.9 % Basophils (%) (Auto) 1.1 % Neutrophils # (Auto) 4.37 K/uL Lymphocytes # (Auto) 1.81 K/uL Monocytes # (Auto) 1.06 K/uL Eosinophils # (Auto) 0.22 K/uL Basophils # (Auto) 0.08 K/uL RDW Standard Deviation 50.6 fL RDW Coefficient of Variation 13.6 % Immature Granulocyte % (Auto) 0.1 % Immature Granulocyte # (Auto) 0.01 K/uL Sodium Level 146 mmol/L Potassium Level 3.8 mmol/L Chloride Level 111 mmol/L Carbon Dioxide Level 23 mmol/L Anion Gap 12.0 mmol/L Blood Urea Nitrogen 14 mg/dl Creatinine 1.70 mg/dl Est Creatinine Clear Calc Drug Dose 53.0 ml/min Estimated GFR () 47.3 Estimated GFR (Non- 40.8 BUN/Creatinine Ratio 8.1 Random Glucose 86 mg/dl Calcium Level 8.1 mg/dl Assessment & Plan jas/atn-appears creatinine is slow to recover. however, it did improve to 1.7 today which is encouraging. may take up to 3 months for full recovery. however , also may not get fully back to baseline. does have underlying htn and tobacco abuse. recommended to avoid all nsaids. would continue to avoid lisinopril till creatinine back to baseline. for now, using norvasc 5mg a day to help with bp control. encourage fluids and recheck bmp in a week and follow up with me in [place] in two weeks.
[2017-01-19] MEDS: TIOTROPIUM BROMIDE 5 PUFF/90 MCG INH INH SCH (09:22)
[2017-01-19 11:39] VITALS: BP 159/86; PULSE 81; TEMP 36.5; O2SAT 96
--- NOTE | 2017-01-19 11:50 | Progress Note ---
Medicine Progress Note Date & Time of Visit: Jan 19, 2017 at 11:44. Subjective comfortable ambulating in the hallways denies headache, dizziness, nausea, chest pain, dyspnea no urinary symptom states he is ready and would like to be discharged today no other symptoms Objective Last 8 Hrs Date Time Temp Pulse Resp B/P Pulse Ox O2 Delivery O2 Flow Rate FiO2 01/19/17 08:00 Room Air 01/19/17 07:48 36.5 81 18 159/86 96 Room Air Physical Exam: General- oriented x 3, not in distress, speaks in sentences Lungs- mild rhonchi at the bases, no wheezes, good air entry Heart- regular rhythm; no murmur,normal rate Abdomen- normal bowel sounds, soft, nontender Extremities- no pretibial edema, no calf tenderness Neuro- alert, oriented x 3; no gross focal deficits Skin- warm & dry Laboratory Results: Last 24 Hours Test 01/19/17 06:43 White Blood Count 7.55 K/uL Red Blood Count 3.81 M/uL Hemoglobin 12.9 g/dL Hematocrit 38.5 % Mean Corpuscular Volume 101.0 fL Mean Corpuscular Hemoglobin 33.9 pg Mean Corpuscular Hemoglobin Concent 33.5 g/dl Platelet Count 242 K/uL Mean Platelet Volume 11.4 fL Neutrophils (%) (Auto) 57.9 % Lymphocytes (%) (Auto) 24.0 % Monocytes (%) (Auto) 14.0 % Eosinophils (%) (Auto) 2.9 % Basophils (%) (Auto) 1.1 % Neutrophils # (Auto) 4.37 K/uL Lymphocytes # (Auto) 1.81 K/uL Monocytes # (Auto) 1.06 K/uL Eosinophils # (Auto) 0.22 K/uL Basophils # (Auto) 0.08 K/uL RDW Standard Deviation 50.6 fL RDW Coefficient of Variation 13.6 % Immature Granulocyte % (Auto) 0.1 % Immature Granulocyte # (Auto) 0.01 K/uL Sodium Level 146 mmol/L Potassium Level 3.8 mmol/L Chloride Level 111 mmol/L Carbon Dioxide Level 23 mmol/L Anion Gap 12.0 mmol/L Blood Urea Nitrogen 14 mg/dl Creatinine 1.70 mg/dl Est Creatinine Clear Calc Drug Dose 53.0 ml/min Estimated GFR () 47.3 Estimated GFR (Non- 40.8 BUN/Creatinine Ratio 8.1 Random Glucose 86 mg/dl Calcium Level 8.1 mg/dl Assessment & Plan 66 year old male with history of Hypertension, COPD ACUTE RENAL FAILURE - likely Pre renal from GI losses, concomitant Lisinopril intake - baseline crea 1 on admission, crea 2.7 gradually improved to 1.7 after receiving IV NSS - [employer] Dr. Godoy consulted CT abdomen: no signs of urinary tract obstruction hold Lisinopril until renal function normalizes - repeat PRP in 1 week patient advised to avoid NSAIDs, ensure adequate daily fluid intake, ff up closely with PCP ff up with [employer] Dr. Godoy in 2 weeks HYPOKALEMIA - likely from GI losses - replaced DIARRHEA - no melena/hematochezia - C diff negative - stool cultures: negative - PRN imodium, IV fluids given - resolved HYPERTENSION - elevated - Lisinopril held for now due to acute renal failure changed to Amlodipine 5mg daily - advised 2g Na diet - ff up as outpatient Alcohol abuse as per records. - no signs of withdrawal - placed on Gabapentin protocol, Ativan PRN History of colonic polyposis as per records - presented with rectal bleed - no recurrence while inpatient Hg stable colonoscopy as outpatient COPD, ongoing tobacco abuse - not in exacerbation Dispo d/c home today ff up with PCP in 3-5 days Current Inpatient Medications: Current Inpatient Medications Medications (Trade) Dose Ordered Sig/Matthieu Route Start Time Stop Time Status Last Admin Dose Admin Acetaminophen (Tylenol Tab) 650 mg Q4H PRN PO 01/15/17 00:45 02/14/17 00:44 01/17/17 23:38 650 MG Hydromorphone HCl (Dilaudid Inj) 0.5 mg Q3H PRN IV 01/15/17 00:45 01/29/17 00:44 01/17/17 19:47 0.5 MG Oxycodone/ Acetaminophen (Percocet 5-325mg Tab) 1 tab Q6H PRN PO 01/15/17 00:45 01/29/17 00:44 01/18/17 15:48 1 TAB Ondansetron HCl (Zofran Inj) 4 mg Q6H PRN IV 01/15/17 00:45 02/14/17 00:44 Multivitamins (Multivitamin Tab) 1 tab QAM PO 01/15/17 09:00 02/14/17 08:59 01/19/17 08:24 1 TAB Thiamine HCl (Vitamin B-1 Tab) 100 mg QAM PO 01/16/17 09:00 02/15/17 08:59 01/19/17 08:24 100 MG Folic Acid (Folvite Tab) 1 mg QAM PO 01/15/17 09:00 02/14/17 08:59 01/19/17 08:23 1 MG Montelukast Sodium (Singulair Tab) 10 mg HS PO 01/15/17 21:00 02/14/17 20:59 01/18/17 20:57 10 MG Tiotropium [place] 1 puff 1 puff DAILY INH 01/15/17 09:00 02/14/17 08:59 01/19/17 09:22 1 PUFF Lorazepam 0.5 mg/ Syringe 1 ml @ 1 mls/min Q4H PRN IV 01/15/17 04:45 02/14/17 04:44 01/16/17 23:46 1 MLS/MIN Lorazepam 1 mg/ Syringe 1 ml @ 1 mls/min ONE PRN IV 01/15/17 04:45 Sodium Chloride (Nss 1000ml) 1,000 ml @ 80 mls/hr [id number] IV 01/15/17 17:30 02/17/17 17:29 01/19/17 05:42 80 MLS/HR Loperamide HCl (Imodium Cap) 2 mg UD PRN PO 01/15/17 18:00 02/14/17 17:59 01/17/17 01:23 2 MG Amlodipine Besylate (Norvasc Tab) 5 mg QAM PO 01/18/17 09:00 02/17/17 08:59 01/19/17 08:24 5 MG Albuterol (Ventolin Hfa Inhaler) 2 puffs Q4H PRN INH 01/18/17 09:45 02/17/17 09:44 Clonidine HCl (Catapres Tab) 0.1 mg Q6H PRN PO 01/18/17 10:00 02/17/17 09:59 01/18/17 17:30 0.1 MG
[2017-01-19] MEDS ORDERED: NRV5 PO (11:53)
--- NOTE | 2017-01-19 12:02 | Discharge Summary ---
Discharge Summary Date of Service Jan 19, 2017. Discharge Summary Admission Date: Jan 14, 2017 at 23:41 Discharge Date: Jan 19, 2017 Discharge Disposition: Home Principal Diagnosis: ACUTE RENAL FAILURE - likely Pre renal from GI losses, concomitant Lisinopril intake Secondary Diagnoses/Problems: Please refer to hospital course below. Procedures: CT SCAN OF THE ABDOMEN AND PELVIS WITHOUT CONTRAST CLINICAL HISTORY: Left lower quadrant abdominal pain. Heme-positive stools. COMPARISON STUDY: No previous studies for comparison. TECHNIQUE: CT scan of the abdomen and pelvis was performed from the lung bases to the proximal femurs. Images are reviewed in the axial, sagittal, and coronal planes. IV contrast was not administered for this examination. CT DOSE: 826.66 mGy.cm FINDINGS: Lower chest: There is mild subpleural interstitial thickening. Liver: The unenhanced liver is normal in size, contour, and attenuation. There is no intrahepatic biliary ductal dilatation. Gallbladder: Unremarkable. Spleen: Normal in size and attenuation. Pancreas: Unremarkable. Adrenal glands: Unremarkable. Kidneys: No renal, ureteral, or bladder calculi are visualized. Bowel: There are no transition zones indicate bowel obstruction. The appendix appears normal. This tiny fat-containing umbilical hernia. There is no acute diverticulitis. Peritoneum: There is no intraperitoneal free air or abdominal ascites. There is a fat containing left inguinal hernia versus a lipomatous inguinal canal Vasculature: The abdominal aorta is normal in course and caliber. Adenopathy: None. Pelvic viscera: The bladder, and pelvic viscera are unremarkable. Skeletal structures: There are postsurgical changes present within the lumbar spine. IMPRESSION: 1. No evidence of bowel obstruction. No evidence of free air 2. Normal appendix. 3. No evidence of acute diverticulitis. 4. No renal, ureteral, or bladder calculi identified. CXR: SINGLE VIEW CHEST CLINICAL HISTORY: GI bleed. FINDINGS: 2 AP, portable, upright chest radiographs are compared to study dated 03/20/2014. The examination is degraded by portable technique and patient rotation. The heart is top normal for projection. The lungs appear hyperinflated hyperlucent. The appearance suggests obstructive physiology. Chronic interstitial thickening is similar to previous. No airspace consolidation or pleural effusion are identified. A small calcified granulomas noted on the right. No pneumothorax is seen. The skeletal structures are osteopenic. The bony thorax is grossly intact. IMPRESSION: Findings suggest obstructive physiology. There is no acute cardiopulmonary abnormality. Consultations: Nephrology Dr. Godoy Pending Studies/Follow-Up: Repeat PRP on follow up; Monitor BP (re: Lisinopril changed to Amlodipine); Please refer to hospital course below. Medication Reconciliation New Medications: Amlodipine Besylate (Amlodipine Besylate) 5 Mg Tab 5 MG PO QAM for 30 Days, #30 TAB 2 Refills Continued Medications: Albuterol Hfa (Ventolin Hfa) 200 Puffs/26509 Mcg Aers 2 PUFFS INH Q6H PRN for Shortness of Breath, #1 INHALER Budesonide/Formoterol Fumarate (Symbicort 160/4.5 Inhaler ) Aero 1 PUFFS INH BID, INHALER Montelukast Sodium (Singulair) 10 Mg Tab 10 MG PO HS, TAB Tiotropium [place] (Spiriva Handihaler) 30 Puff/540 Mcg Aerp 1 CAP INH DAILY, INHALER Discontinued Medications: Aspirin (Aspirin Ec) 325 Mg Tab 325 MG PO BID PRN for Pain Ciprofloxacin Hcl (Cipro) 500 Mg Tab 500 MG PO BID, TAB Lisinopril (Zestril) 20 Mg Tab 20 MG PO DAILY, TAB Admission Information HPI (per Admitting provider): PRIMARY CARE DOCTOR: Dr. Patel. Hx obtained from px and records. CHIEF COMPLAINT: Abdominal pain and hematochezia. HISTORY OF PRESENT ILLNESS: Medical history significant for hypertension, COPD, ongoing tobacco abuse, alcohol abuse as per records, mood disorder as per records, seizure disorder as per records, colonic polyps as per records. Recent confinement last October 2012 for back surgery under orthopedic surgery. Few days hx of achy left-sided abdominal pain, good bowel movement. Px seen at PCP's office. Left lower quadrant tenderness on exam. Patient prescribed Cipro for possible diverticulitis. No Xrays done outpx. Symptoms worsened. At some point, some blood in the stools. No chest pain, no shortness of breath. Appetite fair. Some nausea, vomiting. Denies NSAID intake. At the Emergency Room, hem.occult negative. Physical Exam (per Admitting): VITAL SIGNS: Blood pressure was noted to be 150/92, pulse rate 86, RR 20, temperature 36.7, sats 94 on room air. GENERAL: Noted to be overweight, slightly restless, anxious, no respiratory distress. SKIN: pallor HEENT : pale palp conjunctivae, dry buccal mucosa NECK: No JVD. supple CHEST: Clear to auscultation. HEART: Regular rate and rhythm. ABDOMEN: hypogastric tenderness. EXTREMITIES: No edema. no tenderness NEUROLOGIC: No gross focality. Hospital Course 66 year old male with history of Hypertension, COPD ACUTE RENAL FAILURE - likely Pre renal from GI losses, concomitant Lisinopril intake - baseline crea 1 on admission, crea 2.7 gradually improved to 1.7 after receiving IV NSS - Jd Edwards Dr. Godoy consulted CT abdomen: no signs of urinary tract obstruction hold Lisinopril until renal function normalizes - repeat PRP in 1 week patient advised to avoid NSAIDs, ensure adequate daily fluid intake, ff up closely with PCP ff up with Jd Edwards Dr. Godoy in 2 weeks HYPOKALEMIA - likely from GI losses - replaced DIARRHEA - no melena/hematochezia - C diff negative - stool cultures: negative - PRN imodium, IV fluids given - resolved HYPERTENSION - elevated - Lisinopril held for now due to acute renal failure changed to Amlodipine 5mg daily - advised 2g Na diet - ff up as outpatient Alcohol abuse as per records. - no signs of withdrawal - placed on Gabapentin protocol, Ativan PRN History of colonic polyposis as per records - presented with rectal bleed - no recurrence while inpatient Hg stable colonoscopy as outpatient COPD, ongoing tobacco abuse - not in exacerbation Dispo d/c home today ff up with PCP in 3-5 days Total time spent on discharge = 30 minutes This includes examination of the patient, discharge planning, medication reconciliation, and communication with other providers. Discharge Instructions Discharge Instructions Date of Service Jan 19, 2017. Admission Reason for Admission: ARF Discharge Discharge Diagnosis / Problem: KIDNEY FAILURE, SECONDARY TO DEHYDRATION, IMPROVING Discharge Goals Goal(s): Diagnostic testing, Therapeutic intervention Activity Recommendations Activity Limitations: as noted below (NO HEAVY EXERTION UNTIL RE-EVALUATED BY PRIMARY CARE PHYSICIAN) . Instructions / Follow-Up Instructions / Follow-Up PLEASE REVIEW YOUR NEW MEDICATION LIST AND FOLLOW INSTRUCTIONS CAREFULLY. ENSURE ADEQUATE DAILY FLUID INTAKE AT LEAST 8 GLASSES OF WATER A DAY. DO NOT TAKE NSAIDS LIKE ASPIRIN, IBUPROFEN, NAPROXEN, CELEBREX. ALWAYS CONSULT WITH YOUR PRIMARY CARE PROVIDER BEFORE TAKING ANY NEW MEDICINE. MAINTAIN LOW SALT DIET (LESS THAN 1 TEASPOON OF SALT A DAY). CALL PRIMARY CARE PHYSICIAN IMMEDIATELY IF WITH RETURN OR RECURRENCE OF SYMPTOMS. FOLLOW UP WITH DR. PATEL ON SUNDAY JANUARY 22, 2017 AT 2:10PM. FOLLOW UP WITH KIDNEY SPECIALIST DR. POWERS [facility] Current Hospital Diet Patient's current hospital diet: AHA Diet (Heart Healthy), Low Fiber Diet Discharge Diet Recommended Diet: AHA Diet (Heart Healthy), Low Sodium Diet (2gm Na) Pending Studies Studies pending at discharge: yes List of pending studies: REPEAT BLOOD WORK (PARTIAL RENAL PROFILE) ON FOLLOW UP VISIT WITH PRIMARY CARE PHYSICIAN. Medical Emergencies . Who to Call and When: Medical Emergencies: If at any time you feel your situation is an emergency, please call 911 immediately. . Non-Emergent Contact Non-Emergency issues call your: Primary Care Provider Call Non-Emergent contact if: you have a fever, you have any medication questions . . "Provider Documentation" section prepared by Seth Mendoza. VTE Core Measure Inpt VTE Proph given/why not?: SCD's
== END 2017-01-19 12:34 | disposition home or self-care (01) | DRG 683 ==
LOC: ENRESERVDT → ENRESERVTM → C.EDB 19:27 → C.MSW 23:41
PROVIDERS: ADMIT Internal Medicine; ATTEND Internal Medicine
DX: N17.9 Acute kidney failure, unspecified (principal); K92.1 Melena; I10 Essential (primary) hypertension; J44.9 Chronic obstructive pulmonary disease, unspecified; F17.210 Nicotine dependence, cigarettes, uncomplicated; F39 Unspecified mood [affective] disorder; G40.909 Epilepsy, unspecified, not intractable, without status epilepticus; E87.6 Hypokalemia; F10.10 Alcohol abuse, uncomplicated; T46.4X5A Adverse effect of angiotensin-converting-enzyme inhibitors, initial encounter; Y92.009 Unspecified place in unspecified non-institutional (private) residence as the place of occurrence of the external cause; Z86.010 Personal history of colon polyps

== ENCOUNTER 2018-03-29 08:45 | Inpatient (IN) | payer OTHER ==
[2018-03-11 11:07] VITALS: BMI 25.0
--- NOTE | 2018-03-11 11:41 | PAT Medication Instructions ---
Service Date Mar 11, 2018. Current Home Medication List Albuterol Hfa (Ventolin Hfa), 2 PUFFS INH Q6H PRN for Shortness of Breath Amlodipine (Norvasc), 10 MG PO QAM Fluticasone Furoate-Vilanterol (Breo Ellipta), 1 PUFF INH QAM Fluticasone Propionate (Nasal) (Flonase Allergy Relief), 1 SPRAY BABS DAILY PRN for PRN Ipratropium-Albuterol (Duoneb), 1 TREATMENT INH Q4H PRN for SOB/Wheezing Lisinopril (Zestril), 10 MG PO QAM Prednisone (Prednisone), 20 MG PO UD PRN for COPD RESCUE Tiotropium [place] (Spiriva Handihaler), 1 CAP INH QAM Trazodone Hcl (Trazodone), 50 MG PO HS Medication Instructions For Your Scheduled Surgery -Continue as directed for COPD: Prednisone (Prednisone), 20 MG PO UD PRN for COPD RESCUE - Hold the following medications the morning of surgery: Lisinopril (Zestril), 10 MG PO QAM - Take the following medications the morning of surgery with a sip of water: Albuterol Hfa (Ventolin Hfa), 2 PUFFS INH Q6H PRN for Shortness of Breath (if needed, and bring with you to the hospital) Amlodipine (Norvasc), 10 MG PO QAM Fluticasone Furoate-Vilanterol (Breo Ellipta), 1 PUFF INH QAM Fluticasone Propionate (Nasal) (Flonase Allergy Relief), 1 SPRAY BABS DAILY PRN for PRN (if needed) Ipratropium-Albuterol (Duoneb), 1 TREATMENT INH Q4H PRN for SOB/Wheezing (if needed) Tiotropium [place] (Spiriva Handihaler), 1 CAP INH QAM - Take the following medications as scheduled the night before surgery: Albuterol Hfa (Ventolin Hfa), 2 PUFFS INH Q6H PRN for Shortness of Breath (if needed) Fluticasone Propionate (Nasal) (Flonase Allergy Relief), 1 SPRAY BABS DAILY PRN for PRN (if needed) Ipratropium-Albuterol (Duoneb), 1 TREATMENT INH Q4H PRN for SOB/Wheezing (if needed) Trazodone Hcl (Trazodone), 50 MG PO HS If you have any questions please call us at [phone] or [phone] or [phone]
--- NOTE | 2018-03-11 12:29 | DIAGNOSTIC IMAGING REPORT ---
CHEST 2 VIEWS ROUTINE HISTORY: 68 years-old Male PAT preoperative exam. No acute chest complaints COMPARISON: Chest radiograph 01/14/2017 TECHNIQUE: PA and lateral views of the chest FINDINGS: Cardiac mediastinal and hilar silhouettes are within normal limits. No pneumothorax, pleural effusion, focal airspace consolidation or overt pulmonary edema. Hyperinflation with increased lucency of the lungs suggests emphysema. Areas of chronic interstitial coarsening within the perihilar and bibasilar distribution are unchanged suggesting areas of probable scarring. Degenerative changes of the shoulders and spine. Posterior chuy and screw fusion hardware of the thoracolumbar spine is partially imaged. IMPRESSION: Hyperinflation without acute process. The above report was generated using voice recognition software. It may contain grammatical, syntax or spelling errors. Electronically signed by: Drake De La Vega M.D. 03/11/2018 12:27 PM Dictated Date/Time: 03/11/2018 12:26 PM
[2018-03-11 13:16] LABS: BASO % 0.5 %; BASO ABS # 0.04 K/uL (0-0.2); EOS % 0.7 %; EOS ABS # 0.06 K/uL (0-0.5); HEMATOCRIT 44.9 % (42-52); HEMOGLOBIN 15.7 g/dL (14.0-18.0); IG# 0.02 K/uL (0.00-0.02); LYMPH % 15.6 %; LYMPH ABS # 1.34 K/uL (1.2-3.4); MEAN CELL VOLUME 95.5 fL (80-100); MEAN CORPUSCULAR HEMOGLOBIN 33.4 pg (25-34); MONO % 12.6 %; MONO ABS # 1.08 K/uL (0.11-0.59); NEUT % 70.4 %; NEUT ABS # 6.05 K/uL (1.4-6.5); PLATELET COUNT 203 K/uL (130-400); RED CELL DISTRIBUTION WIDTH CV 14.6 % (11.5-14.5); RED CELL DISTRIBUTION WIDTH SD 51.2 fL (36.4-46.3); WHITE BLOOD COUNT 8.59 K/uL (4.8-10.8)
[2018-03-11 13:23] LABS: CALCIUM 9.2 mg/dl (8.5-10.1); CREATININE 0.69 mg/dl (0.60-1.40); POTASSIUM 3.9 mmol/L (3.5-5.1)
[2018-03-11 13:38] LABS: PTT PATIENT 29.5 SECONDS (21.0-31.0)
--- NOTE | 2018-03-24 08:36 | HISTORY & PHYSICAL EXAMINATION ---
DATE OF ADMISSION: 03/29/2018 CHIEF COMPLAINT: Bilateral knee pain and discomfort, right side greater than left. HISTORY OF PRESENT ILLNESS: This is a 68-year-old gentleman from [place], [place], who presents for surgical treatment of his right knee. He has got a 3+ year history of bilateral knee pain and discomfort, right side a bit worse than the left. He has been through extensive conservative treatment elsewhere including mostly injections. Steroid shots helped him temporarily. Gel shots really did not help at all and if anything made things worse. These were done at [facility]. He now presents for surgical treatment of his right knee. He is not interested in further conservative care. The more he walks, the more it hurts. He is fed up with the pain and would like to have his knee fixed. PAST MEDICAL HISTORY: Past medical history of 1. Hypertension. 2. Emphysema/COPD. 3. Smoking history of 1 pack per day x50 years. 4. Back and spine problems, status post 3 surgeries. PREVIOUS SURGERIES: Include spine surgery x3. ALLERGIES: None. CURRENT MEDICINES: Include 1. Fluticasone. 2. Oxycodone/Vicodin. 3. Amlodipine/Norvasc. 4. Ventolin inhaler. 5. Lisinopril 10 mg a day. 6. Spiriva. 7. Zithromax. 8. Prednisone. 9. Singulair. 10. Flonase. 11. Desyrel. 12. DuoNeb. SOCIAL HISTORY: This is a 68-year-old male. He is . 1-2 drinks per day. A 12-hhaw-siuc history of smoking. FAMILY HISTORY: Heart disease, diabetes, and lung cancer. REVIEW OF SYSTEMS: Negative for diabetes, neurologic problems, vascular problems, or bleeding disorders. He did have an episode of a wound dehiscence after one of his spine surgeries, but no obvious infection. PHYSICAL EXAMINATION: GENERAL: Physical examination shows a pleasant middle-aged male. He looks to be in reasonably good health. HEENT EXAMINATION: Benign. NECK: Supple. No lymphadenopathy. LUNGS: Clear to auscultation. CARDIAC: Heart has a regular rate and rhythm. ABDOMEN: Soft, nontender, nondistended. EXTREMITY EXAMINATION: Grossly neurovascularly intact except as follows: Examination of both knees reveals the patient walks with a varus alignment to both knees. He has got small effusions bilaterally. Tender over the medial joint line bilaterally. Range of motion is pretty symmetric with about 5 degrees short of full extension and 20 degrees of flexion. He has no pain with hip motion on either side. He does seem to have some degree of an essential tremor. X-RAYS: X-rays of both knees reveal advanced bilateral knee DJD. He has got complete loss of his medial joint space bilaterally. He has got osteophytes of the medial femoral condyle and medial tibial plateau. The right side a bit worse than the left. ASSESSMENT: This is a 68-year-old male with advanced bilateral knee degenerative joint disease, right side a bit worse than the left. He failed conservative treatment and would like to have his right knee replaced. PLAN: We will take him to the operating room and do a right total knee replacement. The risks and benefits of this procedure were explained to the patient include but not limited to DVT, PE, , infection, neurological injury, vascular injury, bleeding problem, pain, limited range of motion, stiffness, failure to relieve symptoms, incomplete relief of symptoms, need for further surgery in the future, fracture, leg length inequality, nerve palsy, need for blood transfusion, etc. The patient understands and desires to proceed. Informed consent was obtained. The patient does have a smoking history and he will likely need a nicotine patch in the hospital. We did talk to him about holding his lisinopril and his diclofenac 10 days, the lisinopril the morning of surgery and the diclofenac 10 days preop. As far as discharge plans, he is planning to be discharged home with [facility] home health program.
[2018-03-29] VITALS (8 sets, daily range): BP systolic 120–157; BP diastolic 67–84; PULSE 60–77; TEMP 36.5–36.9; O2SAT 93–99; Ht 185.4 cm; Wt 87.9 kg
[~2018-03-29] VITALS: Ht 185.4 cm; Wt 87.9 kg
[~2018-03-29 08:45] MED LIST changes: +ACETAMINOPHEN 500 MG TAB PO SCH; -ALBUAER19 INH; +AMLO-114 PO; +BUPIVACAINE LIPOSOME 266 MG, BUPIVACAINE/EPINEPHRINE INJ 50 ML, SODIUM CHLORIDE 0.9% PF... INFIL SCH; +FAMOTIDINE 20 MG TAB PO SCH; +FLUT0.15 NAE; +FLUT1INH INH; +GABAPENTIN 300 MG CAP PO SCH; +IPRASOL4 INH; +LACTATED RINGER'S 1000ML 1,000 ML IV SCH; +LACTATED RINGER'S 1000ML IV SCH; +LISI-461 PO; +METOCLOPRAMIDE HCL 10 MG TAB PO SCH; +MISSING PHYSICIAN SIGNATURE ON ORDER SCH; +PRED20TA PO; -RXC5 PO; +SCOPOLAMINE 1.5 MG TDSY TD SCH; +TRANEXAMIC ACID INJ 1,000 MG x 1 Bag Intra-Op IV SCH; +TRAZ50TA35 PO; +VNTHFA/IN INH
[2018-03-29] MEDS ORDERED: LIDOCAINE HCL 2% 2 ML VIAL (20MG/ML) ONE (09:33)
[2018-03-29] MEDS ORDERED: PROPOFOL IV EMULSION 10 MG/ML 20 ML VIAL ONE ×3 (09:33→12:29)
[2018-03-29] MEDS ORDERED: MIDAZOLAM HCL 1 MG/ML 2ML VIAL ONE ×2 (09:34→11:44)
[2018-03-29] MEDS ORDERED: FENTANYL CITRATE INJ 50 MCG/1 ML 2 ML VIAL ONE (09:38)
[2018-03-29] MEDS ORDERED: BUPIVACAINE 0.5 % 5 MG/1 ML PF 10ML VIAL ONE (09:39)
[2018-03-29] MEDS ORDERED: AMOX500C3 PO (09:41)
[2018-03-29] MEDS ORDERED: FENTANYL CITRATE INJ 50 MCG/1 ML 2 ML VIAL IV PRN (10:00)
[2018-03-29] MEDS ORDERED: EpHEDrine SULFATE INJ 50 MG/ML AMP IV PRN (10:00)
[2018-03-29] MEDS ORDERED: ONDANSETRON INJ 2 MG/ML 2 ML VIAL IV PRN ×2 (10:00→13:15)
[2018-03-29] MEDS ORDERED: ATROPINE SULFATE 0.1 MG/ML 5ML SYR IV PRN (10:00)
[2018-03-29 10:06] LABS: HEMATOCRIT 42.3 % (42-52); HEMOGLOBIN 14.7 g/dL (14.0-18.0); MEAN CELL VOLUME 95.3 fL (80-100); MEAN CORPUSCULAR HEMOGLOBIN 33.1 pg (25-34); MEAN PLATELET VOLUME 10.2 fL (7.4-10.4); PLATELET COUNT 222 K/uL (130-400); RED CELL DISTRIBUTION WIDTH CV 14.4 % (11.5-14.5); RED CELL DISTRIBUTION WIDTH SD 50.2 fL (36.4-46.3); WHITE BLOOD COUNT 7.97 K/uL (4.8-10.8)
[2018-03-29] MEDS ORDERED: ONDANSETRON INJ 2 MG/ML 2 ML VIAL ONE (10:13)
[2018-03-29] MEDS ORDERED: DEXAMETHASONE SOD INJ 4 MG/ML VIAL ONE (10:13)
[2018-03-29 10:45] LABS: MEAN CORPUSCULAR HGB CONC 34.8 g/dl (32-36)
[2018-03-29] MEDS ORDERED: SODIUM CHLORIDE 0.9% PF 50 ML VIAL ONE (11:06)
[2018-03-29] MEDS ORDERED: BACITRACIN 50000 UNIT VIAL ONE (11:06)
[2018-03-29] MEDS ORDERED: BUPIVACAINE LIPOSOME 1/3% 266 MG/20 ML VIAL ONE (11:06)
[2018-03-29] MEDS ORDERED: BUPIVACAINE 0.25% 30 ML VIAL ONE (11:07)
[2018-03-29] MEDS ORDERED: VANCOMYCIN HCL 1000MG/20ML VIAL ONE (11:07)
--- NOTE | 2018-03-29 11:07 | History & Physical Bridge Note ---
H&P Re-Evaluation Bridge Note: I have examined the patient, reviewed the History & Physical and in the interval since the performance of the History & Physical I have noted the following changes of clinical significance: Patient has small boil/large pimple on left upper back area. No cellulitis and not tender. I popped it with some pimple like thick substance removed and decompressed. Observed after 1.5 hours and only serosanguinous fluid. No pus. Discussed slight increased in infection risk...meaning not ideal and patient understands and would like to proceed. No other changes noted
[2018-03-29] MEDS: CEFAZOLIN 2000MG IV PUSH 15 ML IV SCH (11:37)
--- NOTE | 2018-03-29 13:14 | [facility] Post Operative Brief Note ---
Immediate Operative Summary Operative Date March 29, 2018. Pre-Operative Diagnosis Right Knee Degenerative Joint Disease Post-Operative Diagnosis Same as preop Procedure(s) Performed Right Total Knee Arthroplasty Surgeon Dr. Maloney Front End Application Developer Surgeon(s) Kwasi Crum PA-C Estimated Blood Loss 50 ml Findings Consistent with Post-Op Diagnosis Fluids (cc crystalloids) 1300 cc Specimens A. Right Knee Bone and Tissue Drains None Anesthesia Type MAC Spinal Regional Complication(s) none Disposition Accompanied Pt To Recover: no Disposition: Recovery Room / PACU Overlapping Procedure I was present for: the critical portions of procedure. I was immediately available: during the entire case
[2018-03-29] MEDS ORDERED: BISACODYL 10 MG SUPP PR PRN (13:15)
[2018-03-29] MEDS ORDERED: HYDROmorphone INJ 0.5 MG/0.5 ML SYR IV PRN (13:15)
[2018-03-29] MEDS ORDERED: TAMSULOSIN HCL 0.4 MG CAP PO PRN (13:15)
[2018-03-29] MEDS ORDERED: ZOLPIDEM TARTRATE 5 MG TAB PO PRN (13:15)
[2018-03-29] MEDS ORDERED: METOCLOPRAMIDE HCL INJ 5 MG/ML 2 ML VIAL IV PRN (13:15)
[2018-03-29] MEDS ORDERED: ALBUTEROL HFA 8 GM INHALER INH PRN (13:15)
[2018-03-29] MEDS ORDERED: ALUMINUM/MAGNESIUM/SIMETH (MAALOX MAX) 30 ML UDC PO PRN (13:15)
[2018-03-29] MEDS ORDERED: CEFAZOLIN IV 2,000 MG in DEXTROSE 5% 50ML 50 ML IV SCH (13:15)
[2018-03-29] MEDS ORDERED: MAGNESIUM HYDROXIDE SUSP 30 ML UDC PO PRN (13:15)
[2018-03-29] MEDS ORDERED: ALBUT/IPRATROP 3MG/0.5MG NEB 3 ML VIAL INH PRN (13:15)
[2018-03-29] MEDS ORDERED: FLUTICASONE PROPIONATE NA SPR 16 GM BTL NAE PRN (13:15)
[2018-03-29] MEDS ORDERED: SILVER SULFADIAZINE 1% CR 50 GM JAR EXT PRN (13:15)
--- NOTE | 2018-03-29 13:47 | DIAGNOSTIC IMAGING REPORT ---
R KNEE 2 VIEWS ROUTINE CLINICAL HISTORY: Degenerative arthritis. Postoperative study COMPARISON: Outside radiograph dated 03/11/2018 DISCUSSION: There are postsurgical changes of a total right knee arthroplasty and patellar resurfacing. The femoral and tibial components appear well seated. Overlying skin dhaval are evident. There is air within soft tissues consistent with recent surgery. IMPRESSION: Postsurgical changes of a total right knee arthroplasty. Electronically signed by: Nilton Lobo M.D. 03/29/2018 1:46 PM Dictated Date/Time: 03/29/2018 1:44 PM
--- NOTE | 2018-03-29 13:57 | Anesthesiology Progress Note ---
Anesthesia Post Op Note Date & Time March 29, 2018 at 13:57 Vital Signs Pain Intensity: 0 Vital Signs Past 12 Hours Date Time Temp Pulse Resp B/P (MAP) Pulse Ox O2 Delivery O2 Flow Rate FiO2 03/29/18 13:46 114/72 03/29/18 13:43 69 16 03/29/18 13:43 70 16 93 03/29/18 13:41 116/74 03/29/18 13:41 36.9 94 Nasal Cannula 2 03/29/18 13:38 65 15 03/29/18 13:38 64 15 94 03/29/18 13:37 66 16 94 03/29/18 13:37 66 16 03/29/18 13:36 120/72 03/29/18 13:32 66 16 95 03/29/18 13:32 66 16 03/29/18 13:31 121/71 03/29/18 13:30 65 12 03/29/18 13:30 66 12 96 03/29/18 13:26 112/70 03/29/18 13:25 80 18 98 03/29/18 13:25 70 18 03/29/18 13:21 119/73 03/29/18 13:20 36.6 72 20 119/73 98 Oxymask 10 03/29/18 13:20 67 12 03/29/18 13:20 68 12 98 03/29/18 09:15 36.9 71 18 155/78 96 Room Air Notes Mental Status: alert / awake / arousable, participated in evaluation Pt Amnestic to Procedure: Yes Nausea / Vomiting: adequately controlled Pain: adequately controlled Airway Patency, RR, SpO2: stable & adequate BP & HR: stable & adequate Hydration State: stable & adequate Neuraxial Anesthesia: was administered, sensory block is resolving Anesthetic Complications: no major complications apparent
--- NOTE | 2018-03-29 14:44 | OPERATIVE REPORT ---
DATE OF OPERATION: 03/29/2018 QUARTER DOPER: Kai Crum PA-C PREOPERATIVE DIAGNOSIS: Right knee degenerative joint disease. POSTOPERATIVE DIAGNOSIS: Right knee degenerative joint disease. PROCEDURE PERFORMED: Right cemented posterior stabilized total knee arthroplasty. COMPLICATIONS: None. ESTIMATED BLOOD LOSS: 50 mL. FLUID REPLACEMENT: 1300 mL of crystalloid fluid replacement. TOURNIQUET TIME: 62 minutes at 300 mmHg. ANESTHESIA: Spinal with adductor canal block. DRAINS: None. SPECIMENS: Right knee sent for pathology. OPERATIVE INDICATIONS: Patient is a 68-year-old male who has had a long history of bilateral knee pain and discomfort, right side greater than left. He has been through extensive conservative treatment and has failed. He has had persistent and limiting pain in his knee. He elected to proceed with total knee arthroplasty. Of note, the patient did have a fairly large pimple/boil on his upper left back area which is being treated by his family doctor. There is no surrounding cellulitis. I did pop this pimple and expressed some white thick material and then observed it over about an hour and half and it just was serosanguineous drainage. There is no surrounding cellulitis. He has not been ill. I did discuss with him this suboptimal situation and the slight increased risk of infection. He was adamant about proceeding with surgery. Obviously, I did not feel like it was a major risk and we elected to proceed. OPERATIVE FINDINGS: Operative findings revealed advanced right knee DJD. Extensive grade 4 changes of the medial and patellofemoral compartments of his knee. A varus aligned knee. He had moderate sized joint effusion. Osteophytes in the medial and patellofemoral compartment. OPERATIVE IMPLANTS: Operative implants consisted of: 1. Biomet Vanguard size 72.5 right posterior stabilized femoral component. 2. Biomet size 75 tibial tray. 3. A 12 mm posterior stabilized polyethylene insert. 4. A 31 x 8 all poly patella. OPERATIVE PROCEDURE: Patient was taken to the operating room, identified and placed on the operating table in supine position. All contact areas were appropriately padded. IV antibiotics were provided by the anesthesia team. A spinal anesthetic was implemented in the holding area. Fisher catheter was placed in sterile fashion. Right thigh tourniquet was then placed and the right lower extremity was then prepped and draped in the usual sterile fashion. The right leg was elevated and exsanguinated with Esmarch and tourniquet was placed at 300 mmHg. An anterior approach of the right knee was then performed through a longitudinal incision centered over the patella. Sharp dissection was carried through subcutaneous tissue down to the level of the extensor mechanism. Medial parapatellar arthrotomy incision was made. Some subperiosteal dissection was carried out medially. Fat pad was resected from beneath the patellar tendon. Lateral patellofemoral ligament was released. Patella was everted and knee was flexed. The osteophytes were taken off the distal femur. The ACL and PCL were then released from the distal femur and the tibia subluxated anteriorly. The external tibial alignment jig was then placed in the anterior face of the tibia and adjusted 14 mm medially. Proximal tibial cut was made to remove about a millimeter or 2 of bone from the most deficient aspect of the medial tibial plateau. Tibia was then sized to a size 75. Some osteophytes were taken off the most posterior and posteromedially. Attention was then drawn to the femur. The distal femur was entered with a sharp drill. The intramedullary canal was suctioned. A right 6-degree valgus cutting guide was placed. Distal femoral cutting block was pinned in place. Distal femoral cut was made to take an additional 3 mm of bone off the distal femur. Femur was then sized to a size 72.5. The AP cutting block was pinned parallel to the epicondylar axis, which was 3 degrees of external rotation. The anterior cut, anterior chamfer, posterior cut, posterior chamfer cuts were made. Box cutting guide was placed and adjusted slightly lateral and the box cut was made. The knee was flexed. The remnants of the medial and lateral menisci were excised. The osteophytes were taken off the posterior aspect of the femur. A trial femoral component was placed. The tibial tray was pinned in maximum external rotation and drill and stem punch were used to create defect in proximal tibia for the tibial tray. The knee was then trialed and the 12 mm insert fit most appropriately. Attention was then drawn to the patella. The patella was cleaned of all soft tissues. Patella thickness measured 22 mm in thickness, cut down to 13. It was sized to a size 31 patella. Lug holes were drilled for 31 patella. Lateral osteophyte was removed. Patella button was placed. Knee was taken through range of motion, patella tracked nicely with no thumbs test. Attention was then drawn toward placement of the permanent components. All trial components removed. A bone plug was placed in the distal femur to limit blood loss. A double batch of Palacos G cement was mixed. I did add an additional gram of vancomycin due to his history of smoking as well as a history of previous spine infection. A right size 72.5 posterior stabilized femoral component, size 75 tibial tray, 12 mm posterior stabilized polyethylene insert, and a 31 x 8 all poly patella then cemented in place. Knee was brought into full extension until cement hardened. A final cement check was performed. The pericapsular tissues were injected with a total of 100 mL of a combination of 20 mL of Exparel, 30 mL of normal saline, 50 mL of 0.25% Marcaine with epinephrine. The patient did receive 1 gram of tranexamic acid. A tourniquet was then let down for a tourniquet time 62 minutes. Hemostasis was assured using electrocautery. The extensor mechanism was then closed with a combination of #1 PDS suture and #1 Vicryl suture in a [id number] fashion. Extensor mechanism was checked and found to be intact. The subcutaneous tissue then closed with #2 Dexon suture in buried interrupted fashion. Skin was closed with skin dhaval. Leg was then cleaned and dried and a sterile dressing of Xeroform, 4 x 4, sterile cast padding and Bowen bandage were applied. The patient then transferred to the recovery room in stable condition. The patient tolerated the procedure well with no complications. All needle and sponge counts were correct at the end of the operation. I attest to the content of the Intraoperative Record and any orders documented therein. Any exception s are noted below.
[2018-03-29] MEDS ORDERED: NURSING VERBAL MED ORDER ONE (14:45)
[2018-03-29] MEDS: CHECK SCOPOLAMINE PATCH PLACEMENT SCH ×2 (15:42→23:16)
[2018-03-29] MEDS: KETOROLAC TROMETHAMINE 15 MG/ML VIAL IV. SCH ×2 (16:07→23:04)
[2018-03-29] MEDS: FERROUS GLUCONATE 324 MG TAB PO SCH (18:31)
[2018-03-29] MEDS: OXYCODONE HCL IR 5 MG TAB (IMMEDIATE RELEASE) PO PRN (18:32)
[2018-03-29] MEDS ORDERED: TRANEXAMIC ACID INJ 1,000 MG in SODIUM CHLORIDE 0.9% 100ML 100 ML IV SCH (19:20)
[2018-03-29] MEDS: D5W AND 1/2NSS + 20MEQ KCL 1,000 ML IV SCH (19:36)
[2018-03-29] MEDS: CEFAZOLIN IV 2,000 MG in SYRINGE 0 ML IV SCH (19:36)
[2018-03-29] MEDS: ACETAMINOPHEN 500 MG TAB PO SCH (20:35)
[2018-03-29] MEDS: ASPIRIN 81 MG ECTAB PO SCH (20:35)
[2018-03-29] MEDS: DOCUSATE SODIUM 100 MG CAP PO SCH (20:35)
[2018-03-29] MEDS: TAPENTADOL ER 50 MG TABCR PO SCH (20:36)
[2018-03-29] MEDS ORDERED: TRAZODONE HCL 50 MG TAB PO SCH (21:00)
[2018-03-29] MEDS ORDERED: SENNA 8.6 MG TAB PO SCH (21:00)
[2018-03-30 03:15] VITALS: BP 146/81; PULSE 75; TEMP 36.7; O2SAT 97
[2018-03-30] MEDS: CEFAZOLIN IV 2,000 MG in SYRINGE 0 ML IV SCH (04:47)
[2018-03-30] MEDS: KETOROLAC TROMETHAMINE 15 MG/ML VIAL IV. SCH ×2 (04:47→09:27)
[2018-03-30] MEDS: D5W AND 1/2NSS + 20MEQ KCL 1,000 ML IV SCH (06:28)
[2018-03-30] MEDS: ACETAMINOPHEN 500 MG TAB PO SCH ×2 (06:28→06:51)
[2018-03-30 06:46] LABS: HEMATOCRIT 36.4 % (42-52); HEMOGLOBIN 12.7 g/dL (14.0-18.0); MEAN CELL VOLUME 94.1 fL (80-100); MEAN CORPUSCULAR HEMOGLOBIN 32.8 pg (25-34); MEAN CORPUSCULAR HGB CONC 34.9 g/dl (32-36); MEAN PLATELET VOLUME 10.4 fL (7.4-10.4); PLATELET COUNT 211 K/uL (130-400); RED CELL DISTRIBUTION WIDTH CV 13.7 % (11.5-14.5); RED CELL DISTRIBUTION WIDTH SD 47.2 fL (36.4-46.3); WHITE BLOOD COUNT 14.08 K/uL (4.8-10.8)
[2018-03-30 07:14] LABS: CALCIUM 8.4 mg/dl (8.5-10.1); CREATININE 0.67 mg/dl (0.60-1.40); POTASSIUM 3.6 mmol/L (3.5-5.1)
[2018-03-30] MEDS: CHECK SCOPOLAMINE PATCH PLACEMENT SCH (07:26)
[2018-03-30] MEDS ORDERED: RXC5 PO (07:42)
[2018-03-30] MEDS ORDERED: ACET-24 PO (07:42)
[2018-03-30] MEDS ORDERED: CEPH500C PO (07:42)
[2018-03-30] MEDS ORDERED: ASPI-320 PO (07:42)
--- NOTE | 2018-03-30 07:43 | Discharge Instructions ---
Discharge Instructions Date of Service March 30, 2018. Admission Reason for Admission: Right Knee Degenerative Joint Disease Discharge Discharge Diagnosis / Problem: Right Knee Replacement Discharge Goals Goal(s): Decrease discomfort, Improve function, Increase independence, Improve disease control, Therapeutic intervention Activity Recommendations Activity Limitations: per Instructions/Follow-up section Weightbearing Status: Right weightbearing . Instructions / Follow-Up Instructions / Follow-Up ACTIVITY RECOMMENDATIONS: Physical Therapy: * You will go to physical therapy three times each week for four to six weeks after your surgery in order to regain your knee range of motion and to retrain your knee to work properly. * It is just as important to make sure you are getting your knee perfectly straight as it is to regain your knee bend. * Taking a pain pill an hour before therapy can help you have a more productive and comfortable therapy session. Home Exercise: * You were shown a series of exercises (heel props, heel slides, etc.) in the hospital. Do these exercises three to four times each day including the exercises you were shown in physical therapy. Walking: * Get up and walk several times each day. For the first four weeks, try not to stand or walk for more than one hour at a time. If you do stand or walk for more than one hour, you will not hurt anything, but your knee and leg will likely swell. * As you feel comfortable, you may change from the walker or crutches to a cane and then to independent walking. MEDICATIONS: New Medicine: * You will likely be taking one or more of these medications: 1. Oxycodone - A quick and shorter-acting pain medication. Take one to two tablets every four to six hours to lessen your pain. 2. Aspirin - Thins your blood to lessen the chance of forming a blood clot. * The most common side effects of pain medicine and iron are nausea and constipation. If nausea or constipation is too much of a problem or if you have any questions about your new medicines or doses, call [facility] at . We will try to help you manage these issues. VERY IMPORTANT TO READ AND REVIEW" Pain: * The immediate post-operative period after knee replacement surgery is often quite painful. * You are given a prescription for pain medicine. You should take it, as directed, when you need it, especially before physical therapy and before going to bed. Pain that interferes with sleep is very common and can last several months. * You will likely need pain medicine for the first four to six weeks. It will not stop all of the pain. The pain will lessen and as you feel better, you may change to milder pain medicine such as Tylenol. * The most common side effects of pain medicine are nausea and constipation, so don't take more than you need. SPECIAL CARE INSTRUCTIONS: TEDs/Elastic Stockings: * The white elastic stockings help limit swelling and prevent blood clots from forming in your legs. The more you wear them, the more they work. * Wear them for six weeks after knee replacement surgery and four weeks after partial knee replacement. Prevention of Infection: * Take antibiotics one hour before any dental cleaning, dental work, urological procedure, gastrointestinal procedure or any invasive surgery in order to prevent your new joint from getting infected. * You may get the antibiotics from the doctor performing the procedure or you may call our office at before and we will call in a prescription to the pharmacy of your choice. Things to Watch For: * Drainage from the incision site that occurs more than one week after your surgery. * Severely increased knee/leg pain or swelling. * Increased redness at the incision site. * Fever above 102 degrees Fahrenheit. * Unusual chest pain or shortness of breath. * Unusual pain or burning with urination. Call [facility] at with any of the above problems or if you have any questions about your medicines or recovery. FOLLOW UP VISIT: Make an appointment to see your doctor for approximately two weeks after surgery for a progress check and staple removal by calling the office at . Current Hospital Diet Patient's current hospital diet: Regular Diet Discharge Diet Recommended Diet: Regular Diet Procedures Procedures Performed: Right Total Knee Arthroplasty Pending Studies Studies pending at discharge: no Medical Emergencies . Who to Call and When: Medical Emergencies: If at any time you feel your situation is an emergency, please call [phone] immediately. . Non-Emergent Contact Non-Emergency issues call your: Surgeon . "Provider Documentation" section prepared by Jon Maloney. .
[2018-03-30 07:48] VITALS: BP 150/72; PULSE 66; TEMP 36.6; O2SAT 99
--- NOTE | 2018-03-30 07:49 | Anesthesiology Progress Note ---
Anesthesia Post Op Note Date & Time March 30, 2018 at 07:49 Vital Signs Pain Intensity: 0.0 Vital Signs Past 12 Hours Date Time Temp Pulse Resp B/P (MAP) Pulse Ox O2 Delivery O2 Flow Rate FiO2 03/30/18 03:15 36.7 75 16 146/81 (102) 97 Room Air 03/29/18 23:45 Room Air 03/29/18 23:20 36.5 77 16 157/84 (108) 99 Room Air Notes Mental Status: alert / awake / arousable, participated in evaluation Pt Amnestic to Procedure: Yes Nausea / Vomiting: adequately controlled Pain: adequately controlled Airway Patency, RR, SpO2: stable & adequate BP & HR: stable & adequate Hydration State: stable & adequate Neuraxial Anesthesia: sensory block resolved Anesthetic Complications: no major complications apparent
[2018-03-30] MEDS ORDERED: PANTOprazole SOD 40 MG TAB PO SCH (09:00)
[2018-03-30] MEDS ORDERED: MULTIVITAMIN TAB PO SCH (09:00)
[2018-03-30] MEDS ORDERED: AMLODIPINE BESYLATE 5 MG TAB PO SCH (09:00)
[2018-03-30] MEDS ORDERED: LISINOPRIL 10 MG TAB PO SCH (09:00)
[2018-03-30] MEDS ORDERED: TIOTROPIUM BROMIDE 5 PUFF/90 MCG INH INH SCH (09:00)
[2018-03-30] MEDS ORDERED: NICOTINE 14 MG/24 HR TDSY TD SCH (09:00)
[2018-03-30 09:06] VITALS: O2SAT 98
[2018-03-30] MEDS: FERROUS GLUCONATE 324 MG TAB PO SCH (09:22)
[2018-03-30] MEDS: ASPIRIN 81 MG ECTAB PO SCH (09:22)
[2018-03-30] MEDS: DOCUSATE SODIUM 100 MG CAP PO SCH (09:22)
[2018-03-30] MEDS: TAPENTADOL ER 50 MG TABCR PO SCH (09:26)
[2018-03-30] MEDS: OXYCODONE HCL IR 5 MG TAB (IMMEDIATE RELEASE) PO PRN (09:27)
[2018-03-30 11:15] VITALS: BP 128/62; PULSE 70; TEMP 36.6; O2SAT 97
--- NOTE | 2018-03-30 13:35 | PROGRESS NOTE ---
DATE: 03/30/2018 SUBJECTIVE: A 68-year-old gentleman postop day 1 from right knee replacement. He is doing well. Therapy went well this morning. His pain is controlled. Denies any chest pain, no shortness of breath. Not feeling dizzy or lightheaded. OBJECTIVE: VITAL SIGNS: Temperature 36.6. Stable. GENERAL: Physical exam shows a pleasant middle-aged male. He is sitting up in bed and looks comfortable. RESPIRATORY: Lungs are clear to auscultation. CARDIOVASCULAR: Heart has a regular rate and rhythm. GASTROINTESTINAL: Abdomen is soft, nontender, nondistended. EXTREMITIES: Grossly neurovascularly intact except as follows: Examination of the right lower extremity reveals the dressing to be clean, dry, and intact. Leg is well aligned. He can do a good straight leg raise. He bends his knee from 0 to 90 degrees without much difficulty. He is neurologically intact. LABORATORY DATA: White cell count 14.08, hemoglobin 12.7, hematocrit 36.4. Electrolytes are stable. ASSESSMENT: A 68-year-old gentleman, postop day 1 from right knee replacement, doing pretty well. His pain is controlled. White cell count is elevated related to stress. Therapy went well. He is adamantly wanting to go home. PLAN: 1. DVT prophylaxis including thigh-high TEDs, SCDs, and aspirin twice a day. 2. PT/OT. Weight bear as tolerated. Right total knee protocol. 3. Pain control, doing well with current pain regimen. He is going to go back on his pain medications that he takes at home, which sounds like it is an oxycodone 10/325 three to four times a day. 4. Disposition: He is going to be discharged home with some home health. We will have them change his bandage tomorrow. He was given instructions on bandage changing before discharge.
== END 2018-03-30 12:37 | disposition home health service (06) | DRG 470 ==
LOC: C.ACU 08:45 → C.3E 13:19 → ENRESERV 13:39
PROVIDERS: ADMIT Orthopaedic Surgery Sports Medicine; ATTEND Orthopaedic Surgery Sports Medicine
PROC: 0SRC0J9 Replacement of Right Knee Joint with Synthetic Substitute, Cemented, Open Approach (ICD-10-PCS; principal; 2018-03-29 11:10)
DX: M17.11 Unilateral primary osteoarthritis, right knee (principal); L02.222 Furuncle of back [any part, except buttock and flank]; I10 Essential (primary) hypertension; J44.9 Chronic obstructive pulmonary disease, unspecified; Z79.52 Long term (current) use of systemic steroids; Z79.899 Other long term (current) drug therapy; Z87.891 Personal history of nicotine dependence

== ENCOUNTER 2018-04-04 04:57 | Emergency (ER) | payer OTHER ==
[~2018-04-04 04:57] MED LIST changes: -ACETAMINOPHEN 500 MG TAB PO SCH; +ASPI-320 PO; -BUPIVACAINE LIPOSOME 266 MG, BUPIVACAINE/EPINEPHRINE INJ 50 ML, SODIUM CHLORIDE 0.9% PF... INFIL SCH; +CEPH500C PO; -FAMOTIDINE 20 MG TAB PO SCH; -GABAPENTIN 300 MG CAP PO SCH; -LACTATED RINGER'S 1000ML 1,000 ML IV SCH; -LACTATED RINGER'S 1000ML IV SCH; -METOCLOPRAMIDE HCL 10 MG TAB PO SCH; -MISSING PHYSICIAN SIGNATURE ON ORDER SCH; -SCOPOLAMINE 1.5 MG TDSY TD SCH; -TRANEXAMIC ACID INJ 1,000 MG x 1 Bag Intra-Op IV SCH
[2018-04-04 05:20] VITALS: BP 128/78; PULSE 100; TEMP 37.8; O2SAT 95
--- NOTE | 2018-04-04 05:37 | EMERGENCY ROOM VISIT NOTE ---
History First contact with patient: 04:59 Chief Complaint: BLEEDING Stated Complaint: BLEEDING History of Present Illness The patient is a 68 year old male who presents to the Emergency Room with complaints of bleeding from his surgical wound. 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 He presents the emergency department tonight because he felt that the knee was bleeding. Upon arrival to the emergency department the knee is not bleeding. The patient has a scheduled follow-up appointment with Dr. Maloney on the . He notes that he was supposed to be seen by home physical therapy on Wednesday and Wednesday however they never showed up. He denies any pain to the leg numbness or tingling. Review of Systems See HPI for pertinent positives & negatives. A total of 10 systems reviewed and were otherwise negative. Past Medical/Surgical History Medical Problems: (1) Right Knee DJD Social History Smoking Status: Current Every Day Smoker Alcohol Use: occasionally Drug Use: none Marital Status: Housing Status: lives with family Occupation Status: retired Current/Historical Medications Scheduled Amlodipine (Norvasc), 10 MG PO QAM Aspirin (Aspirin EC Low Dose), 81 MG PO BID Cephalexin Monohydrate (Keflex), 500 MG PO QID Fluticasone Furoate-Vilanterol (Breo Ellipta), 1 PUFF INH QAM Lisinopril (Zestril), 10 MG PO QAM Tiotropium Atco (Spiriva Handihaler), 1 CAP INH QAM Trazodone Hcl (Trazodone), 50 MG PO HS Scheduled PRN Albuterol Hfa (Ventolin Hfa), 2 PUFFS INH Q6H PRN for Shortness of Breath Fluticasone Propionate (Nasal) (Flonase Allergy Relief), 1 SPRAY BABS DAILY PRN for PRN Ipratropium-Albuterol (Duoneb), 1 TREATMENT INH Q4H PRN for SOB/Wheezing Prednisone (Prednisone), 20 MG PO UD PRN for COPD RESCUE Physical Exam Vital Signs Date Time Temp Pulse Resp B/P (MAP) Pulse Ox O2 Delivery O2 Flow Rate FiO2 04/04/18 05:20 37.8 100 18 128/78 95 Room Air Physical Exam GENERAL: Patient is a healthy-appearing well-nourished male HEAD: Normocephalic atraumatic EYES: Ocular movements intact pupils equal and react to light OROPHARYNX mucous membranes are moist no exudates present no erythema or edema present NECK: Supple no nuchal rigidity CHEST: Good equal expansion LUNGS: Clear and equal to auscultation CARDIAC: Normal S1 and S2 ABDOMEN: Soft nontender no guarding BACK: No CVA tenderness EXTREMITIES: No pain upon palpation normal muscle strength in all groups no clubbing cyanosis or edema, Surgical site healing well, serosanguinous fluid draining from surgical site, no evidence of pus or infection NEURO: Patient is following commands is answering questions appropriately. Alert and oriented x3 Cranial Nerves 2-12 grossly intact Medical Decision & Procedures Medical Decision This is a 68-year-old male who presents emergency department over concerns of bleeding from the surgical site. The blood actually appears to be serosanguineous fluid and I suspect that the patient actually has a draining seroma from the surgical bed. He just has a slight bruise on physical examination. I even had the patient stand up and walk. I will note there is not a heavy amount of bleeding at this point. The patient was wrapped in a trauma dressing and I feel can be safely discharged home for follow-up with his orthopedic surgeon. I did contact case management to get in touch with his physical therapy. Impression Primary Impression: Wound drainage Departure Information Dispostion Home / Self-Care Condition GOOD Referrals Jon Maloney M.D. Forms HOME CARE DOCUMENTATION FORM, School Instructions, Work Instructions, IMPORTANT VISIT INFORMATION Patient Instructions My [facility], ED RICE, ED Seroma Post Op Additional Instructions Need follow up with DR Maloney's office You have been examined and treated today on an emergency basis only. This is not a substitute for, or an effort to provide, complete comprehensive medical care. It is impossible to recognize and treat all injuries or illnesses in a single emergency department visit. It is therefore important that you follow up closely with Dr Patel. Call as soon as possible for an appointment. Thank you for your time and consideration. I look forward to speaking with you again soon. Please don't hesitate to call us if you have any questions.
== END 2018-04-04 05:45 | disposition home or self-care (01) ==
LOC: EDBD 04:57 → C.EDB 04:58
DX: M96.842 Postprocedural seroma of a musculoskeletal structure following a musculoskeletal system procedure (principal); F17.210 Nicotine dependence, cigarettes, uncomplicated; Z79.82 Long term (current) use of aspirin; Z79.899 Other long term (current) drug therapy

== ENCOUNTER 2022-03-15 22:58 | Inpatient (IN) ==
[2022-03-16 00:10] LABS: Basophils # (auto) 0.07 K/uL (0-0.2); Basophils % (auto) 0.4 %; Eosinophils # (auto) 0.07 K/uL (0-0.5); Eosinophils % (auto) 0.4 %; Hematocrit (blood only) 42.3 % (42-52); Hemoglobin 14.3 g/dL (14.0-18.0); Immature Granulocytes # (auto) 0.09 K/uL (0.00-0.02); Immature Granulocytes % (auto) 0.6 %; Lymphocytes # (auto) 1.94 K/uL (1.2-3.4); Mean Corpuscular Hemoglobin 32.7 pg (25-34); Mean Corpuscular Hgb Conc 33.8 g/dL (32-36); Mean Corpuscular Volume 96.8 fL (80-100); Mean Platelet Volume 10.7 fL (7.4-10.4); Monocytes # (auto) 1.34 K/uL (0.11-0.59); Monocytes % (auto) 8.3 %; Neutrophils % (auto) 78.3 %; Platelet Count 263 K/uL (130-400); RDW Coefficient of Variation 13.9 % (11.5-14.5); Red Blood Count 4.37 M/uL (4.7-6.1); White Blood Count 16.11 K/uL (4.8-10.8)
[2022-03-16 00:28] LABS: Albumin Globulin Ratio 1.3 (0.9-2); Albumin Level 4.5 gm/dl (3.4-5.0); BUN Creatinine Ratio 15.4 (10-20); Bilirubin,Total 0.5 mg/dl (0.2-1.0); Calcium 8.9 mg/dl (8.5-10.1); Est GFR (African American) 103.8 ml/min; Est GFR (Non-African American) 89.6 ml/min; Globulin 3.4 gm/dl (2.5-4.0); Potassium 4.3 mmol/L (3.5-5.1); Total Protein 7.9 gm/dl (6.0-8.3)
--- NOTE | 2022-03-16 01:28 | Emergency Department Note ---
Impression & Plan Closed right humeral fracture, Closed fracture of right hip, Alcohol intoxication, Fall Admit to the [facility] ED Provider Note NAME: CONCHITA QUILES AGE: 72 SEX: M ARRIVES VIA: Ambulance INFORMANT: Patient and his son ED PROVIDER(S): Ora Do DO CHIEF COMPLAINT: Fall downstairs PLAN: Disposition: Admit to the [facility] Condition: Guarded MEDICAL DECISION MAKING: This is a 72-year-old male patient who fell down multiple stairs tonight is complaining of right shoulder pain and right hip pain. The patient was drinking alcohol and was transported here by EMS. No loss of consciousness. CT scan of the brain and cervical spine were negative for acute traumatic injuries. The patient has an acute fracture to the right shoulder and right hip. Patient's pain was treated with IV fentanyl. He was started on an IV banana bag. I have discussed the case with the [facility] Hospitalist and they will evaluate for further management. Triage Nursing notes reviewed and agree with them. Additional history obtained from his son who is at the bedside Vital Signs: reviewed and remarkable for no significant abnormalities Differential diagnosis: Head injury, C-spine injury, alcohol intoxication, shoulder injury, hip fracture ER treatment provided: IV banana bag IV fentanyl Diagnostics interpreted by me: ECG: Normal sinus rhythm at [address] segment elevation or signs of ischemia. There is no ectopy Cardiac Monitoring: Normal sinus rhythm at 99 Laboratory studies: See below Imaging studies: As per my interpretation Right hip x-ray: Impacted femoral neck fracture Shoulder x-ray: Comminuted humeral neck fracture Chest x-ray: No obvious traumatic injury: No opacity or pulmonary consolidation As per stat rad CT head: No intracranial hemorrhage, mass-effect, edema or skull fracture CT C-spine: No acute fracture. Advanced degenerative spondylosis with multilevel spinal canal and foraminal stenosis HPI: 72/M arrives for evaluation of fall down stairs. Patient was walking downstairs when he missed a step and fell down the steps landing at the bottom. He did not lose consciousness. He was drinking alcohol. He describes right shoulder pain and right hip pain. He denies head or neck pain. ROS: See above HPI for pertinent positives & negatives. A total of 10 systems reviewed and were otherwise negative. PAST MEDICAL HISTORY:Hypertension; alcohol abuse; previous fall resulting in injury to the right shoulder PAST SURGICAL HISTORY:See Below FAMILY HISTORY:See Below SOCIAL HISTORY:Daily alcohol use HOME MEDICATIONS:See list ALLERGIES:None VITALS:See Below PHYSICAL EXAMINATION: HEENT: Head - normocephalic and atraumatic. Pupils are equal, round, and reactive to light. Extraocular eye muscles are intact and sclera are anicteric. Nose - moist nasal mucosa without evidence of trauma or discharge. Mouth - moist buccal mucosa with no trauma to the teeth or signs of malocclusion. Neck: The cervical collar was temporarily removed while in-line stabilization was maintained. The neck is supple and there is no pain to palpation over the posterior cervical spine and no obvious step-offs or deformities. There is no JVD or tracheal deviation. Chest: There are no signs of deformities, contusions or abrasions to the chest wall. There is no obvious crepitus or paradoxical chest rise. Heart: Regular, rate, and rhythm. There is a normal S1 and S2 with no murmurs, clicks, or gallops appreciated. Lungs: Clear to auscultation bilaterally with no wheezes, rales, or rhonchi. Abdomen: Soft, completely nontender, nondistended, with good bowel sounds. There is no sign of trauma such as contusions, abrasions or penetrations. There are no palpable pulsatile masses or hepatosplenomegaly. There is no guarding, rigidity, or rebound noted. Pelvis: Stable to rock and compression. Extremities: The right lower extremity is externally rotated and shortened. There are easily palpable peripheral pulses. There is good sensation to the toes. There are easily palpable pulses in both wrists. The patient is able to move both hands. There is pain to palpation over the right shoulder. Neuro: The patient is awake and alert and easily able to follow commands. Muscle strength is 5 out of 5 in all 4 extremities. Otherwise, neuro exam is unremarkable. Back: The entire thoracic, lumbar, and sacral spine were palpated. There are no obvious step-offs or deformities noted. There are no obvious signs of trauma such as contusions abrasions penetrations noted to the back. ED COURSE: Times/Reassessments: 110 the patient was evaluated in room A12. A complete history and physical was performed. Laboratory studies were drawn as above. An order was placed for continuous cardiac monitoring. The patient was in a normal sinus rhythm at a rate of 99. A twelve-lead EKG was obtained as described above. The patient went for CT scan of the brain and cervical spine. Plain films were obtained of the right hip and the right shoulder as described above. The patient complained of pain in the right shoulder and was given a dose of IV fentanyl. The patient does drink alcohol every day and was started on IV banana bag. I discussed the case with the [facility] hospitalist and they will evaluate for further management. Ora Do, Past Med/Surg History Medical History Lumbar stenosis (03/28/14) Surgical History History of back surgery Social History (System 05/14/20 @ 09:42 by Jen Hagan) Smoking Status: Former smoker Cigarettes Per Day: 1.5; Smoking End Date: NOVEMBER 2021; Second Hand Exposure: No; Do You Dip or Chew Tobacco: No; Hx Alcohol Use: Yes Alcohol type: beer Hx Substance Use: No Preferred Language: Vietnamese Communication Ability: Effective Hot Box Spotter Required: No Beliefs That Will Affect Care: None Current Living Situation: Alone Current Living Situation Comment: Home alone in apartment Other Information That Helps Us Care for You: No Feels Safe at Home: Yes Safety Concerns: Feels Safe At This Time Assistive Devices: Denture - Upper, Denture - Lower and Glasses Allergies Allergies Allergy/AdvReac Type Severity Reaction Status Date / Time No Known Drug Allergies Allergy Unknown NKDA Verified 03/16/22 01:49 Home Meds Home Medications Medication Instructions Recorded Confirmed albuterol sulfate 90 mcg/actuation 2 puff INHALATION QID PRN 03/16/22 03/16/22 aerosol inhaler amlodipine 10 mg tablet 10 mg PO DAILY 03/16/22 03/16/22 fluticasone furoate 100 1 ea INHALATION QAM 03/16/22 03/16/22 mcg-vilanterol 25 mcg/dose inhalation powder (Breo Ellipta) furosemide 40 mg tablet (Lasix) 40 mg PO DAILY PRN 03/16/22 03/16/22 ipratropium 0.5 mg-albuterol 3 mg 3 ml INHALATION QID PRN 03/16/22 03/16/22 (2.5 mg base)/3 mL nebulization soln lisinopril 20 mg tablet 20 mg PO DAILY 03/16/22 03/16/22 montelukast 10 mg tablet 10 mg PO HS 03/16/22 03/16/22 tiotropium bromide 18 mcg capsule 1 cap INHALATION DAILY 03/16/22 03/16/22 with inhalation device (Spiriva with HandiHaler) trazodone 100 mg tablet 100 mg PO HS 03/16/22 03/16/22 Results & Data (ED) Vital Signs Vital Signs - 24 hr 03/15/22 22:50 03/15/22 23:50 03/16/22 03:00 Pulse Rate 85 94 H Pulse Rate [Right] 109 H Pulse Rhythm Regular Pulse Rhythm [Right] Regular Pulse Strength [Right] Normal Respiratory Rate 18 18 Respiratory Effort / Characteristics Non-Labored Spontaneous Respiratory Depth Normal Respiratory Pattern Regular Blood Pressure 126/55 L Blood Pressure [Right Arm] 126/52 L Blood Pressure Mean 78 Blood Pressure Mean [Right Arm] 76 Blood Pressure Position [Right Arm] Lying Pulse Oximetry 94 95 Oxygen Delivery Method Room Air Room Air Room Air Sepsis Recent Fever Within 48 Hours No Sepsis New/Unexplained Change in Mental Status N/A Sepsis Action Taken by Nursing No Action Required 03/16/22 05:00 Pulse Rate Pulse Rate [Right] 109 H Pulse Rhythm Pulse Rhythm [Right] Pulse Strength [Right] Respiratory Rate 18 Respiratory Effort / Characteristics Respiratory Depth Respiratory Pattern Blood Pressure Blood Pressure [Right Arm] 140/84 Blood Pressure Mean Blood Pressure Mean [Right Arm] 102 Blood Pressure Position [Right Arm] Lying Pulse Oximetry 91 Oxygen Delivery Method Sepsis Recent Fever Within 48 Hours Sepsis New/Unexplained Change in Mental Status Sepsis Action Taken by Nursing Laboratory Data Result diagrams: 03/15/22 23:39 03/15/22 23:39 Lab Results 03/15/22 03/15/22 03/15/22 Range/Units 23:39 23:39 23:39 WBC 16.11 H (4.8-10.8) K/uL RBC 4.37 L (4.7-6.1) M/uL Hgb 14.3 (14.0-18.0) g/dL Hct 42.3 (42-52) % MCV 96.8 (80-100) fL MCH 32.7 (25-34) pg MCHC 33.8 (32-36) g/dL RDW Std Deviation 50.0 H (36.4-46.3) fL RDW Coeff of Lisa 13.9 (11.5-14.5) % Plt Count 263 (130-400) K/uL MPV 10.7 H (7.4-10.4) fL Immature Gran % (Auto) 0.6 % Neut % (Auto) 78.3 % Lymph % (Auto) 12.0 % Fannin % (Auto) 8.3 % Eos % (Auto) 0.4 % Baso % (Auto) 0.4 % Neut # (Auto) 12.60 H (1.4-6.5) K/uL Lymph # (Auto) 1.94 (1.2-3.4) K/uL Fannin # (Auto) 1.34 H (0.11-0.59) K/uL Eos # (Auto) 0.07 (0-0.5) K/uL Baso # (Auto) 0.07 (0-0.2) K/uL Immature Gran # (Auto) 0.09 H (0.00-0.02) K/uL Sodium 137 (136-145) mmol/L Potassium 4.3 (3.5-5.1) mmol/L Chloride 102 (98-107) mmol/L Carbon Dioxide 20 L (21-32) mmol/L Anion Gap 15 H (3-11) BUN 12 (6-23) mg/dl Creatinine 0.78 (0.6-1.4) mg/dl Est Cr Clr Drug Dosing 109.0 ml/min Est GFR ( Amer) 103.8 ml/min Est GFR (Non-Af Amer) 89.6 ml/min BUN/Creatinine Ratio 15.4 (10-20) Glucose 109 H (70-99(Fasting)) mg/dl Calcium 8.9 (8.5-10.1) mg/dl Total Bilirubin 0.5 (0.2-1.0) mg/dl AST 45 H (13-39) U/L ALT 41 (7-52) U/L Alkaline Phosphatase 84 (34-104) U/L Total Protein 7.9 (6.0-8.3) gm/dl Albumin 4.5 (3.4-5.0) gm/dl Globulin 3.4 (2.5-4.0) gm/dl Albumin/Globulin Ratio 1.3 (0.9-2) Ethyl Alcohol mg/dL 259.2 H (<10.0) mg/dl SARS-CoV-2, RNA, NAAT (NEGATIVE) 03/16/22 Range/Units 03:15 WBC (4.8-10.8) K/uL RBC (4.7-6.1) M/uL Hgb (14.0-18.0) g/dL Hct (42-52) % MCV (80-100) fL MCH (25-34) pg MCHC (32-36) g/dL RDW Std Deviation (36.4-46.3) fL RDW Coeff of Lisa (11.5-14.5) % Plt Count (130-400) K/uL MPV (7.4-10.4) fL Immature Gran % (Auto) % Neut % (Auto) % Lymph % (Auto) % Fannin % (Auto) % Eos % (Auto) % Baso % (Auto) % Neut # (Auto) (1.4-6.5) K/uL Lymph # (Auto) (1.2-3.4) K/uL Fannin # (Auto) (0.11-0.59) K/uL Eos # (Auto) (0-0.5) K/uL Baso # (Auto) (0-0.2) K/uL Immature Gran # (Auto) (0.00-0.02) K/uL Sodium (136-145) mmol/L Potassium (3.5-5.1) mmol/L Chloride (98-107) mmol/L Carbon Dioxide (21-32) mmol/L Anion Gap (3-11) BUN (6-23) mg/dl Creatinine (0.6-1.4) mg/dl Est Cr Clr Drug Dosing ml/min Est GFR ( Amer) ml/min Est GFR (Non-Af Amer) ml/min BUN/Creatinine Ratio (10-20) Glucose (70-99(Fasting)) mg/dl Calcium (8.5-10.1) mg/dl Total Bilirubin (0.2-1.0) mg/dl AST (13-39) U/L ALT (7-52) U/L Alkaline Phosphatase (34-104) U/L Total Protein (6.0-8.3) gm/dl Albumin (3.4-5.0) gm/dl Globulin (2.5-4.0) gm/dl Albumin/Globulin Ratio (0.9-2) Ethyl Alcohol mg/dL (<10.0) mg/dl SARS-CoV-2, RNA, NAAT NEGATIVE (NEGATIVE) Administered Medications Acetaminophen (Acetaminophen 325 Mg Tab) 650 mg PO Q4H PRN PRN Reason: Pain or Fever Stop: 04/15/22 06:21 Last Admin: 03/16/22 09:40 Dose: 650 mg Documented by: [id number] Amlodipine Besylate (Amlodipine Besylate 5 Mg Tab) 10 mg PO DAILY [facility] Stop: 04/15/22 08:59 Last Admin: 03/16/22 09:23 Dose: 10 mg Documented by: [id number] Clonidine HCl (Clonidine Hcl 0.1 Mg Tab) 0.1 mg PO Q4H PRN PRN Reason: Hypertension Stop: 04/15/22 06:21 Last Admin: 03/16/22 17:40 Dose: 0.1 mg Documented by: [id number] Fluticasone/Vilanterol (Fluticasone/Vilanterol 100/25mcg 14 Puffs/Inhaler) 1 puffs INH QAM IRA Stop: 04/15/22 08:59 Last Admin: 03/16/22 10:19 Dose: 1 puffs Documented by: [id number] Hydromorphone HCl (Hydromorphone Inj 0.5 Mg/0.5 Ml Syr) 0.5 mg IV Q3H PRN PRN Reason: Pain Stop: 03/30/22 06:21 Last Admin: 03/16/22 15:07 Dose: 0.5 mg Documented by: [id number] Admin: 03/16/22 11:17 Dose: 0.5 mg Documented by: [id number] Admin: 03/16/22 08:14 Dose: 0.5 mg Documented by: [id number] Sodium Chloride (Nss 1000ml) 1,000 mls @ 100 mls/hr IV .Q10H IRA Stop: 04/15/22 06:21 Last Admin: 03/16/22 19:58 Dose: 100 mls/hr Documented by: [id number] Infusion: 03/16/22 19:24 Dose: 0 mls/hr Documented by: [id number] Admin: 03/16/22 09:24 Dose: 100 mls/hr Documented by: [id number] Thiamine HCl 100 mg/ Syringe 10 mls @ 2 mls/min IV QAM [facility] Stop: 04/15/22 08:59 Last Admin: 03/16/22 08:15 Dose: 2 mls/min Documented by: [id number] Folic Acid 1 mg/ Syringe 10 mls @ 5 mls/min IV QAM [facility] Stop: 04/15/22 08:59 Last Admin: 03/16/22 08:15 Dose: 5 mls/min Documented by: [id number] Lisinopril (Lisinopril 20 Mg Tab) 20 mg PO DAILY [facility] Stop: 04/15/22 08:59 Last Admin: 03/16/22 08:14 Dose: 20 mg Documented by: [id number] Lorazepam (Lorazepam 2 Mg/1 Ml Vial) 3 mg IV ONCE PRN; Protocol PRN Reason: EtOH Withdrawl AWSS Score >=10 Stop: 04/15/22 06:21 Last Admin: 03/16/22 17:39 Dose: 3 mg Documented by: [id number] Oxycodone HCl (Oxycodone Hcl Ir 5 Mg Tab (Immediate Release)) 5 mg PO Q6H PRN PRN Reason: Pain Stop: 03/30/22 13:35 Last Admin: 03/16/22 13:58 Dose: 5 mg Documented by: [id number] Umeclidinium [place] (Umeclidinium [place] 62.5mcg/Blister 7 Puffs/Inhaler) 1 puffs INH DAILY [facility] Stop: 04/15/22 08:59 Last Admin: 03/16/22 10:19 Dose: 1 puffs Documented by: [id number] Discontinued Medications Fentanyl Citrate (Fentanyl Citrate 100 Mcg/2 Ml Vial) 50 mcg IV NOW STA Stop: 03/16/22 02:38 Last Admin: 03/16/22 02:46 Dose: 50 mcg Documented by: [id number] Gabapentin (Gabapentin 1200mg Alcohol Withdrawal Load) 1 ea PO NOW STA; Protocol Stop: 03/16/22 05:07 Last Admin: 03/16/22 09:13 Dose: 1 ea Documented by: [id number] Gabapentin (Gabapentin 600 Mg Tab) 1,200 mg PO NOW ONE Stop: 03/16/22 07:01 Last Admin: 03/16/22 08:13 Dose: 1,200 mg Documented by: [id number] Gabapentin (Gabapentin 600 Mg Tab) 600 mg PO Q6H IRA Stop: 03/16/22 18:01 Last Admin: 03/16/22 17:32 Dose: 600 mg Documented by: [id number] Admin: 03/16/22 12:56 Dose: 600 mg Documented by: [id number] Multivitamins 10 ml/ Thiamine HCl 100 mg/ Folic Acid 1 mg/Sodium Chloride 1,011.2 mls @ 1,011.2 mls/hr IV .Q1H ONE Stop: 03/16/22 05:03 Last Infusion: 03/16/22 09:13 Dose: 0 mls/hr Documented by: [id number] Admin: 03/16/22 08:13 Dose: 1,011.2 mls/hr Documented by: [id number] Morphine Sulfate (Morphine Sulfate 2 Mg/Ml Carp) 2 mg IV NOW STA Stop: 03/16/22 04:05 Last Admin: 03/16/22 04:16 Dose: 2 mg Documented by: [id number] Ondansetron HCl (Ondansetron Inj 2 Mg/Ml 2 Ml Vial) 4 mg IV NOW STA Stop: 03/16/22 04:05 Last Admin: 03/16/22 04:16 Dose: 4 mg Documented by: [id number] Discharge Plan Visit Data Chief Complaint: Fall Stated Complaint: FALL/ HIT HEAD, rt SHOULDER AND HIP PAIN ED Provider: Ora Do Discharge Problem: Closed right humeral fracture, Closed fracture of right hip, Alcohol intoxica tion, Fall Patient Disposition: Admitted As Inpatient Discharge Instructions Interventions: ED Discharge Assessment Last Done: 03/16/22 06:51 Discharge Problem: Closed right humeral fracture Qualifiers: Encounter type: initial encounter Humerus Location: surgical neck Fracture morphology: 2-part Fracture alignment: displaced Qualified Code(s): S42.221A - 2-part displaced fracture of surgical neck of right humerus, initial encounter for closed fracture Closed fracture of right hip Qualifiers: Encounter type: initial encounter Qualified Code(s): S72.001A - Fracture of unspecified part of neck of right femur, initial encounter for closed fracture Alcohol intoxication Qualifiers: Complication of substance-induced condition: uncomplicated Qualified Code(s): F10.920 - Alcohol use, unspecified with intoxication, uncomplicated Fall Qualifiers: Encounter type: initial encounter Qualified Code(s): W19.XXXA - Unspecified f all, initial encounter
[2022-03-16] MEDS ORDERED: fentaNYL citrate 100 MCG/2 ML VIAL IV STA (02:37)
[2022-03-16] MEDS ORDERED: MoRPHine SULFATE 2 MG/ML CARP IV STA (04:04)
[2022-03-16] MEDS ORDERED: MULTI-VITAMIN INFUSION 10 ML, THIAMINE HCL 100 MG, FOLIC ACID 1 MG in SODIUM CHLORIDE 0... IV ONE (04:04)
[2022-03-16] MEDS ORDERED: ONDANSETRON INJ 2 MG/ML 2 ML VIAL IV STA (04:04)
[2022-03-16] MEDS ORDERED: GABAPENTIN 1200MG ALCOHOL WITHDRAWAL LOAD PO STA (05:06)
[2022-03-16] MEDS ORDERED: ONDANSETRON INJ 2 MG/ML 2 ML VIAL IV PRN (06:22)
[2022-03-16] MEDS ORDERED: FUROSEMIDE 40 MG TAB PO PRN (06:22)
[2022-03-16] MEDS ORDERED: cloNIDine HCL 0.1 MG TAB PO PRN (06:22)
[2022-03-16] MEDS ORDERED: POLYETHYLENE (MIRALAX) 17 GM PACK PO PRN (06:22)
[2022-03-16] MEDS ORDERED: ALBUT/IPRATROP 3MG/0.5MG NEB 3 ML VIAL INH PRN (06:22)
[2022-03-16] MEDS ORDERED: LORazepam 2 MG/1 ML VIAL IV PRN ×3 (06:22)
[2022-03-16] MEDS ORDERED: ATIVAN IV ALCOHOL WITHDRAWL IV PRN (06:22)
[2022-03-16] MEDS ORDERED: NITROGLYCERIN SL 0.4 MG/TAB TAB SL PRN (06:22)
[2022-03-16] MEDS ORDERED: ALBUTEROL HFA 8 GM INHALER INH PRN (06:22)
--- NOTE | 2022-03-16 06:40 | XRay Report ---
XR shoulder RT min 2V routine HISTORY: 72 years-old Male fell down 10 steps acute right shoulder pain status post fall COMPARISON: Shoulder radiographs 04/11/2020 TECHNIQUE: 2 views of the right shoulder FINDINGS: Chronic fracture deformity of the greater tuberosity. There is an acute and comminuted fracture invol ving the surgical neck which demonstrates separation of the fracture fragments measuring up to 6 mm. Cortical irregularity involves the lateral aspect of the scapular body. No significant displacement o r angulation. Moderate glenohumeral and AC joint osteoarthritis. IMPRESSION: 1. Acute comminuted fracture of the right humeral surgical neck with chronic fracture deformity of th e greater tuberosity. 2. Lateral cortical irregularity of the scapular body is suggestive of an age-indeterminate fracture. 3. Moderate glenohumeral and AC joint osteoarthritis. ACT 112: Negative or not required by law. The above report was generated using voice recognition software. It may contain grammatical, syntax o r spelling errors. Electronically signed by: Todd De La Vega M.D. 03/16/2022 6:38 AM
--- NOTE | 2022-03-16 06:42 | XRay Report ---
XR hip RT min 2V HISTORY: 72 years-old Male fell down 10 steps acute right hip pain status post fall COMPARISON: None TECHNIQUE: 3 views of the right hip FINDINGS: There is acute mildly impacted fracture involving the transcervical right femur with possible mild co mminution and approximately 8 mm superior lateral displacement of a few millimeters of volar displace ment. Mild to moderate right hip osteoarthritis. IMPRESSION: Acute mildly impacted and slightly displaced transcervical fracture of the right femur. ACT 112: Negative or not required by law. The above report was generated using voice recognition software. It may contain grammatical, syntax o r spelling errors. Electronically signed by: Todd De La Vega M.D. 03/16/2022 6:41 AM
[2022-03-16] MEDS ORDERED: GABAPENTIN 600 MG TAB PO ONE (07:00)
--- NOTE | 2022-03-16 07:04 | XRay Report ---
XR chest 1V portable HISTORY: 72 years-old Male routine acute chest trauma status post fall COMPARISON: CT cervical spine of same day, CTA chest 09/19/2021 TECHNIQUE: Portable AP view of the chest FINDINGS: The cardiomediastinal and hilar silhouettes are within normal limits. There is no pneumothorax, pleur al effusion, airspace consolidation or overt pulmonary edema. Partially imaged lumbar spinal fusion h ardware. Acute right humeral neck fracture with chronic appearing fracture of the right greater tuber osity of the humerus. IMPRESSION: 1. No acute cardiopulmonary abnormality. 2. Acute fracture of the right humeral surgical neck. ACT 112: Negative or not required by law. The above report was generated using voice recognition software. It may contain grammatical, syntax o r spelling errors. Electronically signed by: Todd De La Vega M.D. 03/16/2022 7:03 AM
--- NOTE | 2022-03-16 07:37 | CT Scan Report ---
CT head/brain wo con CLINICAL HISTORY: 72 years-old Male with fall. Acute head trauma status post fall TECHNIQUE: Multiple axial CT images of the head were obtained without contrast. A dose lowering tech nique was utilized adhering to the principles of ALARA. COMPARISON: CT cervical spine of same day FINDINGS: No acute intracranial hemorrhage, midline shift, intracranial mass, hydrocephalus, territorial ischem ia or abnormal extra-axial collection. Age-related involutional changes. Mild white matter hypodensit ies suggest chronic microvascular ischemic disease. The calvarium is intact. The paranasal sinuses, mastoid air cells, and middle ear cavities are clear . IMPRESSION: No acute intracranial abnormality or calvarial fracture. ACT 112: Negative or not required by law. The above report was generated using voice recognition software. It may contain grammatical, syntax o r spelling errors. Electronically signed by: Todd De La Vega M.D. 03/16/2022 7:35 AM
--- NOTE | 2022-03-16 08:01 | CT Scan Report ---
CT cervical spine wo con CT DOSE: 1128.18 mGy.cm CLINICAL HISTORY: 72 years-old Male with fall. Acute neck injury status post fall COMPARISON: Head CT of same day TECHNIQUE: Multiple axial CT images of the cervical spine were obtained without contrast. A dose low ering technique was utilized adhering to the principles of ALARA. FINDINGS: Multilevel intervertebral disc space narrowing, severe at C5-C6 and C6 or C7. Moderate mult ilevel spondylitic spurring with posterior disc osteophyte complex formations. Calcifications of the posterior longitudinal ligament are noted along with moderate to severe multilevel facet arthrosis. G rade 1 anterolisthesis C2 on C3 is likely secondary to chronic severe facet arthrosis. No acute cervi tim spine fracture or subluxation is identified. Multilevel neural foraminal narrowing. There is an a cute and comminuted intra-articular nondisplaced fracture of the right clavicular head with mild john cent soft tissue edema. No dislocation. 1.8 cm hypodense right-sided thyroid nodule. No prevertebral edema. Calcified plaque of the carotid b ulbs. The visualized lung apices appear clear. IMPRESSION: 1. No acute cervical spine fracture or subluxation. 2. Acute nondisplaced intra-articular fracture of the right clavicular head. This finding was called/ faxed to the floor at time of dictation. ACT 112: Negative or not required by law. The above report was generated using voice recognition software. It may contain grammatical, syntax o r spelling errors. Electronically signed by: Todd De La Vega M.D. 03/16/2022 7:59 AM
[2022-03-16] MEDS: HYDROmorphone INJ 0.5 MG/0.5 ML SYR IV PRN ×3 (08:14→15:07)
[2022-03-16] MEDS: lisinopril 20 MG TAB PO SCH (08:14)
[2022-03-16] MEDS: THIAMINE HCL 100 MG in SYRINGE 9 ML IV SCH (08:15)
[2022-03-16] MEDS: FOLIC ACID 1 MG in SYRINGE 9.8 ML IV SCH (08:15)
[2022-03-16] MEDS: amLODIPine BESYLATE 5 MG TAB PO SCH (09:23)
[2022-03-16] MEDS: SODIUM CHLORIDE 0.9% 1000ML 1,000 ML IV SCH ×2 (09:24→19:58)
[2022-03-16] MEDS: ACETAMINOPHEN 325 MG TAB PO PRN (09:40)
--- NOTE | 2022-03-16 10:16 | History and Physical Report ---
DATE OF ADMISSION: 03/16/2022 CHIEF COMPLAINT: Status post fall, right humerus and femur fracture. HISTORY OF PRESENT ILLNESS: This is a 72-year-old male with past medical history significant for hyperlipidemia, COPD, moderate obstructive sleep apnea, hypertension, lumbar disk disease, history of seizure disorder, ongoing alcoholism, presents with a fall. The patient says he lives in an apartment, he tripped on the steps and fell down on the right side and was brought in here, having a lot of pain in the right shoulder and right hip. Imaging studies shows right humerus fracture and right femur fracture. The patient's alcohol level is 259. The patient says he drinks alcohol regularly, 6 mixed drinks every day. The patient smoked 2 packs a day, but quit about 4 months ago. The patient is alert and awake. Denies any chest pain. Currently, no shortness of breath, but the patient says he gets short of breath on exertion. He can walk 1 block before he gets short of breath. Denies any headache. No blurred visions, no earache, no runny nose, no sore throat, no cough, no difficulty swallowing. Appetite is okay. No nausea, no abdominal pain. Normal bowel and bladder movements. ALLERGIES: No known drug allergies. PAST MEDICAL HISTORY: As mentioned above. PAST SURGICAL HISTORY: Right total knee arthroplasty, colonoscopy, lumbar spine fusion surgery, nasal surgery, tonsillectomy, removal of anal fistula. MEDICATIONS: The patient is on albuterol 2 puffs inhalation q.i.d. p.r.n., amlodipine 10 mg p.o. daily, Breo Ellipta 1 inhalation daily, Lasix 40 mg daily p.r.n. for edema, DuoNeb q.i.d. p.r.n., lisinopril 20 mg p.o. daily, montelukast 10 mg p.o. at bedtime, Spiriva 1 capsule inhalation daily, trazodone 100 mg p.o. at bedtime. FAMILY HISTORY: Significant for mother had diabetes, CAD; sister has CAD, COPD; father had silicosis; son has diabetes. SOCIAL HISTORY: Lives alone. Quit smoking about 4 months ago. Prior to that, smoked about 2 packs a day for many years. Alcohol, 6 mixed drinks daily. No drug use. REVIEW OF SYSTEMS: As per HPI. Rest of review of systems is negative. PHYSICAL EXAMINATION: GENERAL: The patient is of moderate build, not in acute distress. VITAL SIGNS: Temperature afebrile, pulse 109, respiratory rate 18, blood pressure 126/52, oxygen 95% on room air. HEENT: Pupils equal, round and reactive to light. Oral mucosa moist. NECK: No JVD, no neck masses. CARDIOVASCULAR: S1 and S2 heard. Regular rate and rhythm. No murmur, no gallop. RESPIRATORY SYSTEM: Normal AP diameter. No accessory muscle use. No wheezing, no crackles. ABDOMEN: Soft, bowel sounds present, nontender, no distention. CENTRAL NERVOUS SYSTEM: Cranial nerves II-XII grossly intact, nonfocal. EXTREMITIES: Painful right shoulder movements. Right lower extremity is externally rotated. No erythema or edema seen of the lower extremities. LABORATORY DATA: WBC 16.1, hemoglobin 14.3, hematocrit 42.3, platelets 263. Sodium 137, potassium 4.3, chloride 102, bicarbonate 20, BUN 12, creatinine 0.7, serum glucose 109, calcium 8.9, total bilirubin 0.5, AST 45, ALT 41, alkaline phosphatase 84. Ethyl alcohol 259. SARS-CoV-2 rapid test negative. IMAGING: CT of the head, preliminary report: No acute findings. Cervical spine CT, preliminary report: No acute fractures. Chest x-ray: No acute findings. Shoulder x-ray and hip x-ray readings are pending. EKG: Normal sinus rhythm at a rate of 95, left axis deviation, no acute ST-T changes seen. ASSESSMENT AND PLAN: This is a 72-year-old male who presents with mechanical fall and right humerus and right femur fracture. 1. Mechanical fall, right humerus and right femur fracture: Pain control. We will keep him n.p.o., IV fluids. Consult orthopedics. Monitor in the hospital. The patient's laboratories are okay. Hemodynamics are stable. Chest x-ray and ekg okay. The patient has a smoking history, but quit 4 months ago. The patient is not in active delirium tremens. The patient is at acceptable risk to proceed with any procedures. 2. Alcoholism: We will monitor for alcohol withdrawal. He received a banana bag in the Emergency Room. We will place him on IV thiamine, IV folic acid, gabapentin withdrawal protocol and IV Ativan p.r.n. protocol. Closely monitor in the med-telemetry. 3. History of chronic obstructive pulmonary disease, moderate: Continue his home inhalers and nebulizers p.r.n. Currently stable. 4. Hypertension: Continue lisinopril, amlodipine, clonidine p.r.n. 5. History of obstructive sleep apnea.Not on cpap or oxygen 6. History of seizures: Says long time back.Currently not on any medications. 7. Deep venous thrombosis prophylaxis: Not giving anticoagulation for now for any planned procedures. Could not place sequential compression device because of right hip fracture. Further anticoagulation as per orthopedics. DISPOSITION: Closely monitor in the med-tele. PT/OT prior to discharge. Social service to help with discharge planning. Job ID: [id number] [facility]Jacques
[2022-03-16] MEDS: UMECLIDINIUM BROMIDE 62.5MCG/BLISTER 7 PUFFS/INHALER INH SCH (10:19)
[2022-03-16] MEDS: FLUTICASONE/VILANTEROL 100/25MCG 14 PUFFS/INHALER INH SCH (10:19)
[2022-03-16] MEDS: GABAPENTIN 600 MG TAB PO SCH ×2 (12:56→17:32)
[2022-03-16 13:10] LABS: Appearance Urine Clear (Clear); Bilirubin Urine Negative (Negative); Blood Urine Negative (Negative); Color Urine Yellow; Glucose Urine UA Negative (Negative); Ketones Urine 2+ (Negative); Leukocyte Esterase Urine Negative (Negative); Nitrite Urine Negative (Negative); Protein Urine Negative (Negative); Specific Gravity Urine 1.017 (1.000-1.030); Urobilinogen Urine Negative (Negative); pH Urine 5.5 (4.5-7.5)
[2022-03-16] MEDS: oxyCODONE HCL IR 5 MG TAB (IMMEDIATE RELEASE) PO PRN (13:58)
--- NOTE | 2022-03-16 18:59 | Orthopedic Consultation ---
Date of Consultation March 16, 2022 Assessment & Plan (1) Displaced fracture of right femoral neck: We will plan for a right hip hemiarthroplasty tomorrow. I will discussed the case with our surgeons as to who will perform the procedure. He will be made n.p.o. after midnight. All potential risks, benefits, complications, alternatives, and rehab have been discussed with the patient and he wishes to proceed. A surgery consent was placed on the front of the chart. Thank you for the consultation. We will follow with the patient during his inpatient stay. (2) Closed fracture of right proximal humerus: Continue close treatment of the right proximal humerus fracture. Continue sling at all times for no range of motion of the right shoulder. The patient be seen outpatient and followed with x-rays. History of Present Illness Reason for Consultation: Right hip and right shoulder injury/pain Attending Physician: Filomena Fair MD History of Present Illness This is a patient who sustained a fall down approximately 10 steps yesterday. He was brought to the emergency room where x-rays were performed and he was noted to have a right proximal humerus fracture as well as a displaced right femoral neck fracture. He was placed in a sling for the right upper extremity. We were consulted for definitive treatment of the proximal humerus fracture as well as the right femoral neck fracture. Allergies Allergy/AdvReac Type Severity Reaction Status Date / Time No Known Drug Allergies Allergy Unknown NKDA Verified 03/16/22 01:49 Home Medications Medication Instructions Recorded Confirmed Type albuterol sulfate 90 mcg/actuation 2 puff INHALATION QID PRN 03/16/22 03/16/22 History aerosol inhaler amlodipine 10 mg tablet 10 mg PO DAILY 03/16/22 03/16/22 History fluticasone furoate 100 1 ea INHALATION QAM 03/16/22 03/16/22 History mcg-vilanterol 25 mcg/dose inhalation powder (Breo Ellipta) furosemide 40 mg tablet (Lasix) 40 mg PO DAILY PRN 03/16/22 03/16/22 History ipratropium 0.5 mg-albuterol 3 mg 3 ml INHALATION QID PRN 03/16/22 03/16/22 History (2.5 mg base)/3 mL nebulization soln lisinopril 20 mg tablet 20 mg PO DAILY 03/16/22 03/16/22 History montelukast 10 mg tablet 10 mg PO HS 03/16/22 03/16/22 History tiotropium bromide 18 mcg capsule 1 cap INHALATION DAILY 03/16/22 03/16/22 Histo ry with inhalation device (Spiriva with HandiHaler) trazodone 100 mg tablet 100 mg PO HS 03/16/22 03/16/22 History Patient History Medical History Lumbar stenosis (03/28/14) Surgical History History of back surgery Social History (System 05/14/20 @ 09:42 by Jen Hagan) Smoking Status: Former smoker Cigarettes Per Day: 1.5; Smoking End Date: NOVEMBER 2021; Second Hand Exposure: No; Do You Dip or Chew Tobacco: No; Hx Alcohol Use: Yes Alcohol type: beer Hx Substance Use: No Preferred Language: Amharic Communication Ability: Effective Rn First Assist Required: No Beliefs That Will Affect Care: None Current Living Situation: Alone Current Living Situation Comment: Home alone in apartment Other Information That Helps Us Care for You: No Feels Safe at Home: Yes Safety Concerns: Feels Safe At This Time Assistive Devices: Denture - Upper, Denture - Lower and Glasses Physical Exam Constitutional: well developed, well nourished and + acute distress (Patient somnolent secondary to recent Ativan dose.) Neck: trachea midline Musculoskeletal: Shoulder: + joint line tenderness (Right shoulder. Moderate swelling with tightness of the skin.); no deformity, no skin erythema and no ecchymosis Hip: + hip abnormal to inpsection (Externally rotated right leg), + limited ROM of hip (Right hip), + joint line tenderness (Right hip, generalized) and + log roll test positive (Right); no skin erythema and no ecchymosis Skin: no rashes, warm and dry Trauma: no evidence of skin trauma Neurologic: normal touch/pain/proprioception Psychiatric: Orientation: alert Speech: normal rate/rhythm/volume of speech Results & Data ([facility]) Vital Signs (Past 12 Hours) Vital Signs Temp Pulse Pulse Resp BP Pulse Ox 03/16/22 17:30 38.7 C H 113 H 20 181/87 H 91 03/16/22 15:24 37.2 C 104 H 18 149/88 H 94 03/16/22 14:21 97 H 03/16/22 11:23 37.5 C 105 H 18 121/75 90 Diagnostic Findings 2 views right hip. Displaced femoral neck fracture. 1 view of the right shoulder demonstrates a comminuted minimally displaced proximal humerus fracture through the surgical neck and into the humeral head.
[2022-03-16] MEDS: MONTELUKAST SODIUM 10 MG TABLET PO SCH (20:47)
[2022-03-16] MEDS: traZODone HCL 100 MG TAB PO SCH (22:00)
[2022-03-17] MEDS: GABAPENTIN 600 MG TAB PO SCH ×3 (02:22→17:25)
[2022-03-17] MEDS: HYDROmorphone INJ 0.5 MG/0.5 ML SYR IV PRN (02:49)
[2022-03-17] MEDS: SODIUM CHLORIDE 0.9% 1000ML 1,000 ML IV SCH ×2 (05:08→15:21)
[2022-03-17 06:17] LABS: Basophils # (auto) 0.04 K/uL (0-0.2); Basophils % (auto) 0.4 %; Eosinophils # (auto) 0.02 K/uL (0-0.5); Eosinophils % (auto) 0.2 %; Hematocrit (blood only) 33.4 % (42-52); Immature Granulocytes # (auto) 0.04 K/uL (0.00-0.02); Immature Granulocytes % (auto) 0.4 %; Lymphocytes # (auto) 1.33 K/uL (1.2-3.4); Lymphocytes % (auto) 12.1 %; Mean Corpuscular Hemoglobin 32.2 pg (25-34); Mean Corpuscular Hgb Conc 32.9 g/dL (32-36); Mean Corpuscular Volume 97.7 fL (80-100); Mean Platelet Volume 10.8 fL (7.4-10.4); Monocytes # (auto) 1.98 K/uL (0.11-0.59); Neutrophils # (auto) 7.62 K/uL (1.4-6.5); Neutrophils % (auto) 68.9 %; Platelet Count 219 K/uL (130-400); RDW Coefficient of Variation 14.1 % (11.5-14.5); RDW Standard Deviation 50.5 fL (36.4-46.3); Red Blood Count 3.42 M/uL (4.7-6.1); White Blood Count 11.03 K/uL (4.8-10.8)
[2022-03-17 06:53] LABS: Albumin Globulin Ratio 1.3 (0.9-2); Albumin Level 3.5 gm/dl (3.4-5.0); BUN Creatinine Ratio 21.1 (10-20); Bilirubin,Total 1.5 mg/dl (0.2-1.0); Calcium 8.3 mg/dl (8.5-10.1); Creatinine Clr Calc Pharmacy 147.4 ml/min; Est GFR (African American) 118.1 ml/min; Est GFR (Non-African American) 101.9 ml/min; Globulin 2.6 gm/dl (2.5-4.0); Magnesium 1.9 mg/dl (1.7-2.4); Phosphorus 2.1 mg/dl (2.5-4.9); Potassium 4.2 mmol/L (3.5-5.1); Total Protein 6.1 gm/dl (6.0-8.3)
[2022-03-17] MEDS: FOLIC ACID 1 MG in SYRINGE 9.8 ML IV SCH (08:05)
[2022-03-17] MEDS: amLODIPine BESYLATE 5 MG TAB PO SCH (08:06)
[2022-03-17] MEDS: THIAMINE HCL 100 MG in SYRINGE 9 ML IV SCH (08:06)
[2022-03-17] MEDS: UMECLIDINIUM BROMIDE 62.5MCG/BLISTER 7 PUFFS/INHALER INH SCH (08:06)
[2022-03-17] MEDS: lisinopril 20 MG TAB PO SCH (08:06)
[2022-03-17] MEDS: FLUTICASONE/VILANTEROL 100/25MCG 14 PUFFS/INHALER INH SCH (08:07)
[2022-03-17] MEDS ORDERED: SODIUM PHOSPHATE 3 MMOL/1 ML 5 ML VIAL IV ONE (08:34)
[2022-03-17] MEDS ORDERED: MAGNESIUM SULFATE / D5W 1 GM/100 ML BAG IV ONE (08:34)
[2022-03-17] MEDS ORDERED: SODIUM PHOSPHATE 20 MMOL in SODIUM CHLORIDE 0.9% 500 ML IV ONE (09:00)
--- NOTE | 2022-03-17 10:41 | Hospitalist Progress Note ---
Date of Service March 17, 2022 Assessment & Plan (1) Closed fracture of right hip: Plan: Mechanical fall on the right side when he tripped on the steps as he was coming down in his apartment Noted to have closed fracture of the right hip Appreciate Ortho input and recommendation for proposed surgery today 03/17/2022 There is no contraindication for proposed surgery Remains hemodynamically stable with blood pressure on the upper side and minimally tachycardic (2) Closed right humeral fracture: Plan: Secondary to mechanical fall Likely conservative management as per Ortho (3) Alcoholism: Plan: History of chronic alcoholism Has been under withdrawal protocol No symptoms of active withdrawal at this time (4) Fall: Plan: As above (5) COPD (chronic obstructive pulmonary disease): Plan: History of COPD without any exacerbation No evidence of pneumonia on chest x-ray Noted to have fever on admission and also as of today White count is not elevated, blood cultures have been taken No source of infection is found-we will will hold off any antibiotic for now (6) Sleep apnea: Plan: Stable (7) Hypertension: Plan: Has been on amlodipine and lisinopril We will continue As needed clonidine (8) History of seizure disorder: Plan: No medications for seizure Will observe DVT prophylaxis As per Ortho Admission and Anticipated Discharge Date Admission Date: March 16, 2022 Subjective 03/17/2022 The patient was seen and examined in medical telemetry unit He complains to have pain in the right hip and right shoulder joint Does not have any tremor at rest Denies any shortness of breath and/or palpitation Review of Systems Review of Systems: All systems reviewed and are unremarkable except as noted below Respiratory: Minimal wheezing Cardiovascular: Additional Comments: No palpitation and no chest pain Neurologic: No tremors Physical Exam Physical Exam: Lying in bed with minimal distress due to right shoulder and right hip pain Constitutional: well developed, well nourished, + ill appearing and + obese Eyes: PERRL, conjunctivae normal, anicteric sclerae ENMT: external ear and nose normal, oropharynx normal Respiratory: no respiratory distress Auscultation: + diminished lung sounds, + crackles (Occasional crackles at the bases) and + wheezes (Minimal wheezing anteriorly) Cardiovascular: Rate/Rhythm: regular rate, regular rhythm and + tachycardic Heart Sounds: normal S1 and normal S2; no murmur Extremities: + edema (Trace edema bilaterally) Gastrointestinal (Abdomen): Inspection/Auscultation: + abdomen distended and normal bowel sounds Percussion/Palpation: abdomen soft; abdomen nontender Musculoskeletal: Extremities: + limited ROM of extremities (Right upper extremity) and + leg externally rotated (Right) Neurologic: Alert, awake and oriented x3 Psychiatric: A+Ox3, euthymic affect Lymphatic: no cervical or axillary lymphadenopathy Results & Data Results & Data ([facility]) Vital Signs (Past 12 Hours) Vital Signs Temp Pulse Pulse Pulse Resp BP Pulse Ox 03/17/22 07:44 38.0 C H 102 H 18 151/78 H 91 03/17/22 07:16 100 H 03/17/22 06:22 03/17/22 02:23 36.7 C 66 16 142/78 H 96 03/16/22 23:31 37.8 C H 88 20 143/78 H 96 Pulse Ox 03/17/22 07:44 03/17/22 07:16 03/17/22 06:22 96 03/17/22 02:23 03/16/22 23:31 Laboratory Results Short CBC 03/17/22 Range/Units 05:21 WBC 11.03 H (4.8-10.8) K/uL Hgb 11.0 L D (14.0-18.0) g/dL Hct 33.4 L (42-52) % Plt Count 219 (130-400) K/uL BMP 03/17/22 05:21 Sodium 133 L Potassium 4.2 Chloride 101 Carbon Dioxide 26 BUN 12 Creatinine 0.57 L Glucose 102 H Calcium 8.3 L Liver Function 03/17/22 Range/Units 05:21 Total Bilirubin 1.5 H D (0.2-1.0) mg/dl AST 24 (13-39) U/L ALT 24 (7-52) U/L Alkaline Phosphatase 61 (34-104) U/L Albumin 3.5 (3.4-5.0) gm/dl Urine 03/16/22 Range/Units 12:32 Urine Color Yellow Urine Appearance Clear (Clear) Urine pH 5.5 (4.5-7.5) Ur Specific [place] 1.017 (1.000-1.030) Urine Protein Negative (Negative) Urine Glucose (UA) Negative (Negative) Medications Administered Current Inpatient Medications Acetaminophen (Acetaminophen 325 Mg Tab) 650 mg PO Q4H PRN PRN Reason: Pain or Fever Stop: 04/15/22 06:21 Last Admin: 03/16/22 09:40 Dose: 650 mg Documented by: Albuterol (Albuterol Hfa 8 Gm Inhaler) 2 puffs INH QID PRN PRN Reason: Shortness Of Breath Or Wheezing Stop: 04/15/22 06:21 Albuterol (Albut/Ipratrop 3mg/0.5mg Neb 3 Ml Vial) 3 ml INH QIDR PRN; Protocol PRN Reason: Shortness Of Breath Or Wheezin Stop: 04/15/22 06:21 Amlodipine Besylate (Amlodipine Besylate 5 Mg Tab) 10 mg PO DAILY IRA Stop: 04/15/22 08:59 Last Admin: 03/17/22 08:06 Dose: 10 mg Documented by: Clonidine HCl (Clonidine Hcl 0.1 Mg Tab) 0.1 mg PO Q4H PRN PRN Reason: Hypertension Stop: 04/15/22 06:21 Last Admin: 03/16/22 17:40 Dose: 0.1 mg Documented by: Fluticasone/Vilanterol (Fluticasone/Vilanterol 100/25mcg 14 Puffs/Inhaler) 1 puffs INH QAM IRA Stop: 04/15/22 08:59 Last Admin: 03/17/22 08:07 Dose: 1 puffs Documented by: Furosemide (Furosemide 40 Mg Tab) 40 mg PO DAILY PRN PRN Reason: Edema Stop: 04/15/22 06:21 Gabapentin (Gabapentin 600 Mg Tab) 600 mg PO Q8H IRA Stop: 03/17/22 18:01 Last Admin: 03/17/22 08:07 Dose: 600 mg Documented by: Gabapentin (Gabapentin 600 Mg Tab) 600 mg PO Q12H IRA Stop: 03/18/22 18:01 Gabapentin (Gabapentin 600 Mg Tab) 600 mg PO Q24H IRA Stop: 03/19/22 18:01 Hydromorphone HCl (Hydromorphone Inj 0.5 Mg/0.5 Ml Syr) 0.5 mg IV Q3H PRN PRN Reason: Pain Stop: 03/30/22 06:21 Last Admin: 03/17/22 02:49 Dose: 0.5 mg Documented by: Sodium Chloride (Nss 1000ml) 1,000 mls @ 100 mls/hr IV .Q10H [facility] Stop: 04/15/22 06:21 Last Admin: 03/17/22 05:08 Dose: 100 mls/hr Documented by: Thiamine HCl 100 mg/ Syringe 10 mls @ 2 mls/min IV QAM [facility] Stop: 04/15/22 08:59 Last Admin: 03/17/22 08:06 Dose: 2 mls/min Documented by: Folic Acid 1 mg/ Syringe 10 mls @ 5 mls/min IV QAM [facility] Stop: 04/15/22 08:59 Last Admin: 03/17/22 08:05 Dose: 5 mls/min Documented by: Magnesium Sulfate/Dextrose (Magnesium Sulfate / D5w) 1 gm in 100 mls @ 50 mls/hr IV [facility] Stop: 03/17/22 10:33 Last Admin: 03/17/22 08:56 Dose: 50 mls/hr Documented by: Sodium Phosphate 20 mmol/ (Sodium Chloride) 506.6667 mls @ 126.667 mls/hr IV [facility] Stop: 03/17/22 12:59 Lisinopril (Lisinopril 20 Mg Tab) 20 mg PO DAILY [facility] Stop: 04/15/22 08:59 Last Admin: 03/17/22 08:06 Dose: 20 mg Documented by: Lorazepam (Lorazepam 2 Mg/1 Ml Vial) 1 mg IV UD PRN; Protocol PRN Reason: EtOH Withdrawl AWSS Score 6,7 Stop: 04/15/22 06:21 Lorazepam (Lorazepam 2 Mg/1 Ml Vial) 2 mg IV UD PRN; Protocol PRN Reason: EtOH Withdrawl AWSS Score 8,9 Stop: 04/15/22 06:21 Lorazepam (Lorazepam 2 Mg/1 Ml Vial) 3 mg IV ONCE PRN; Protocol PRN Reason: EtOH Withdrawl AWSS Score >=10 Stop: 04/15/22 06:21 Last Admin: 03/16/22 17:39 Dose: 3 mg Documented by: Montelukast Sodium (Montelukast Sodium 10 Mg Tablet) 10 mg PO HS [facility] Stop: 04/15/22 20:59 Last Admin: 03/16/22 20:47 Dose: 10 mg Documented by: Nitroglycerin (Nitroglycerin Sl 0.4 Mg/Tab Tab) 0.4 mg SL UD PRN PRN Reason: Chest Pain Stop: 04/15/22 06:21 Ondansetron HCl (Ondansetron Inj 2 Mg/Ml 2 Ml Vial) 4 mg IV Q6H PRN PRN Reason: Nausea Stop: 04/15/22 06:21 Oxycodone HCl (Oxycodone Hcl Ir 5 Mg Tab (Immediate Release)) 5 mg PO Q6H PRN PRN Reason: Pain Stop: 03/30/22 13:35 Last Admin: 03/16/22 13:58 Dose: 5 mg Documented by: Polyethylene Glycol (Polyethylene (Miralax) 17 Gm Pack) 17 gm PO DAILY PRN PRN Reason: Constipation Stop: 04/15/22 06:21 Trazodone HCl (Trazodone Hcl 100 Mg Tab) 100 mg PO HS IRA Stop: 04/15/22 20:59 Last Admin: 03/16/22 22:00 Dose: Not Given Documented by: Umeclidinium [place] (Umeclidinium [place] 62.5mcg/Blister 7 Puffs/Inhaler) 1 puffs INH DAILY IRA Stop: 04/15/22 08:59 Last Admin: 03/17/22 08:06 Dose: 1 puffs Documented by: (1) Closed fracture of right hip Encounter type: initial encounter Qualified Code(s): S72.001A - Fracture of unspecified part of neck of right femur, initial encounter for closed fracture (2) Closed right humeral fracture Encounter type: initial encounter Fracture alignment: displaced Fracture morphology: 2-part Humerus Location: surgical neck Qualified Code(s): S42.221A - 2-part displaced fracture of surgical neck of right humerus, initial encounter for closed fracture (3) Fall Encounter type: initial encounter Qualified Code(s): W19.XXXA - Unspecified fall, initial encounter
--- NOTE | 2022-03-17 14:03 | Anesthesiology Consultation ---
Date of Service March 17, 2022 Assessment & Plan (1) Encounter for pre-operative examination: Chart Review Chart Review: licensed direct entry midwife initiated History Surgery Operation Date: 03/17/22 08:20 Proposed Procedures p Hemiarthroplasty Hip Right - Daniel Humphries DO Height/Weight Height: 6 ft 1 in Weight: 105.8 kg Allergies Allergy/AdvReac Type Severity Reaction Status Date / Time No Known Drug Allergies Allergy Unknown NKDA Verified 03/16/22 01:49 Medications Home Medications Medication Instructions Recorded Confirmed Last Taken albuterol sulfate 90 mcg/actuation 2 puff INHALATION QID PRN 03/16/22 03/16/22 Unknown aerosol inhaler amlodipine 10 mg tablet 10 mg PO DAILY 03/16/22 03/16/22 Unknown fluticasone furoate 100 1 ea INHALATION QAM 03/16/22 03/16/22 Unknown mcg-vilanterol 25 mcg/dose inhalation powder (Breo Ellipta) furosemide 40 mg tablet (Lasix) 40 mg PO DAILY PRN 03/16/22 03/16/22 Unknown ipratropium 0.5 mg-albuterol 3 mg 3 ml INHALATION QID PRN 03/16/22 03/16/22 Unknown (2.5 mg base)/3 mL nebulization soln lisinopril 20 mg tablet 20 mg PO DAILY 03/16/22 03/16/22 Unknown montelukast 10 mg tablet 10 mg PO HS 03/16/22 03/16/22 Unknown tiotropium bromide 18 mcg capsule 1 cap INHALATION DAILY 03/16/22 03/16/22 Unknown with inhalation device (Spiriva with HandiHaler) trazodone 100 mg tablet 100 mg PO HS 03/16/22 03/16/22 Unknown Active Medications Generic Name Dose Route Start Last Admin Trade Name Freq PRN Reason Stop Dose Admin Acetaminophen 650 mg 03/16/22 06:22 03/16/22 09:40 Acetaminophen 325 Mg Tab PO 04/15/22 06:21 650 mg Q4H PRN Administration Pain or Fever Amlodipine Besylate 10 mg 03/16/22 09:00 03/17/22 08:06 Amlodipine Besylate 5 Mg Tab PO 04/15/22 08:59 10 mg DAILY IRA Administration Clonidine HCl 0.1 mg 03/16/22 06:22 03/16/22 17:40 Clonidine Hcl 0.1 Mg Tab PO 04/15/22 06:21 0.1 mg Q4H PRN Administration Hypertension Fluticasone/Vilanterol 1 puffs 03/16/22 09:00 03/17/22 08:07 Fluticasone/Vilanterol 100/25mcg 14 Puffs/Inhaler INH 04/15/22 08:59 1 puffs QAM IRA Administration Gabapentin 600 mg 03/17/22 02:00 03/17/22 08:07 Gabapentin 600 Mg Tab PO 03/17/22 18:01 600 mg Q8H IRA Administration Hydromorphone HCl 0.5 mg 03/16/22 06:22 03/17/22 02:49 Hydromorphone Inj 0.5 Mg/0.5 Ml Syr IV 03/30/22 06:21 0.5 mg Q3H PRN Administration Pain Sodium Chloride 1,000 mls @ 100 mls/hr 03/16/22 06:22 03/17/22 05:08 Nss 1000ml IV 04/15/22 06:21 100 mls/hr .Q10H IRA Administration Thiamine HCl 100 mg/ Syringe 10 mls @ 2 mls/min 03/16/22 09:00 03/17/22 08:06 IV 04/15/22 08:59 2 mls/min QAM IRA Administration Folic Acid 1 mg/ Syringe 10 mls @ 5 mls/min 03/16/22 09:00 03/17/22 08:05 IV 04/15/22 08:59 5 mls/min QAM IRA Administration Lisinopril 20 mg 03/16/22 09:00 03/17/22 08:06 Lisinopril 20 Mg Tab PO 04/15/22 08:59 20 mg DAILY IRA Administration Lorazepam 3 mg 03/16/22 06:22 03/16/22 17:39 Lorazepam 2 Mg/1 Ml Vial IV 04/15/22 06:21 3 mg ONCE PRN Administration EtOH Withdrawl AWSS Score >=10 Protocol Montelukast Sodium 10 mg 03/16/22 21:00 03/16/22 20:47 Montelukast Sodium 10 Mg Tablet PO 04/15/22 20:59 10 mg HS IRA Administration Oxycodone HCl 5 mg 03/16/22 13:36 03/16/22 13:58 Oxycodone Hcl Ir 5 Mg Tab (Immediate Release) PO 03/30/22 13:35 5 mg Q6H PRN Administration Pain Trazodone HCl 100 mg 03/16/22 21:00 03/16/22 22:00 Trazodone Hcl 100 Mg Tab PO 04/15/22 20:59 Not Given HS IRA Umeclidinium [place] 1 puffs 03/16/22 09:00 03/17/22 08:06 Umeclidinium [place] 62.5mcg/Blister 7 Puffs/Inhaler INH 04/15/22 08:59 1 puffs DAILY IRA Administration Past Medical History Medical History Lumbar stenosis (03/28/14) Past Surgical History Surgical History History of back surgery Social History Smoking Status: Former smoker tobacco type: cigarettes Smoking cigarettes per day: 1.5 Do You Dip or Chew Tobacco: No Smoking End Date: NOVEMBER 2021 Hx Alcohol Use: Yes Alcohol type: beer alcohol intake frequency: 3 or more drinks per day Alcohol Intake Frequency Comment: DAILY- 5-10 PER DAY Hx Substance Use: No substance use type: does not use Physical Exam Vital Signs Last Vital Signs Temp 100.2 F H 03/17/22 11:10 Pulse 102 H 03/17/22 11:10 Resp 18 03/17/22 11:10 BP 144/76 H 03/17/22 11:10 Pulse Ox 93 03/17/22 11:10 Testing Laboratory Results 03/17/22 05:21 03/17/22 05:21 Urine Color Yellow 03/16/22 12:32 Urine Appearance Clear (Clear) 03/16/22 12:32 Urine pH 5.5 (4.5-7.5) 03/16/22 12:32 Ur Specific [place] 1.017 (1.000-1.030) 03/16/22 12:32 Urine Protein Negative (Negative) 03/16/22 12:32 Urine Glucose (UA) Negative (Negative) 03/16/22 12:32 Urine Ketones 2+ (Negative) H 03/16/22 12:32 Urine Nitrite Negative (Negative) 03/16/22 12:32 Ur Leukocyte Esterase Negative (Negative) 03/16/22 12:32 Electrocardiogram Date: 03/16/22 Poor data quality, interpretation may be adversely affected, rate 95 bpm Normal sinus rhythm Left axis deviation Abnormal ECG When compared with ECG of 11-MAR-2018 11:31, QRS axis Shifted left Chest X-Ray Date: 03/16/22 IMPRESSION: 1. No acute cardiopulmonary abnormality. 2. Acute fracture of the right humeral surgical neck.
[2022-03-17 14:49] LABS: INR 1.1 (0.9-1.1); Prothrombin Time 11.4 Seconds (9.0-12.0)
[2022-03-17] MEDS: ACETAMINOPHEN 325 MG TAB PO PRN ×2 (15:40→23:19)
[2022-03-17] MEDS ORDERED: VANCOMYCIN CONSULT ACTIVE PRN (15:56)
[2022-03-17] MEDS ORDERED: PIPERACILL/TAZOBAC CONSULT ACTIVE PRN (15:56)
[2022-03-17] MEDS ORDERED: VANCOMYCIN HCL 1,000 MG in SODIUM CHLORIDE 0.9% 250 ML IV STA (15:56)
[2022-03-17] MEDS ORDERED: PIPERACILLIN/TAZOBACTAM 4.5 GM in DEXTROSE 5% 100 ML IV ONE (16:00)
[2022-03-17] MEDS ORDERED: VANCOMYCIN HCL 2,250 MG in SODIUM CHLORIDE 0.9% 500 ML IV ONE (16:15)
[2022-03-17] MEDS: MONTELUKAST SODIUM 10 MG TABLET PO SCH (20:22)
[2022-03-17] MEDS: traZODone HCL 100 MG TAB PO SCH (20:22)
[2022-03-17] MEDS: oxyCODONE HCL IR 5 MG TAB (IMMEDIATE RELEASE) PO PRN (20:27)
[2022-03-17] MEDS: PIPERACILLIN/TAZOBACTAM 3.375 GM in DEXTROSE 5% 100 ML IV SCH (22:31)
[2022-03-18] MEDS: VANCOMYCIN HCL 1,500 MG in SODIUM CHLORIDE 0.9% 500 ML IV SCH ×2 (04:46→16:17)
[2022-03-18] MEDS: SODIUM CHLORIDE 0.9% 1000ML 1,000 ML IV SCH ×2 (04:51→16:17)
[2022-03-18] MEDS: GABAPENTIN 600 MG TAB PO SCH ×2 (05:09→16:20)
[2022-03-18] MEDS: PIPERACILLIN/TAZOBACTAM 3.375 GM in DEXTROSE 5% 100 ML IV SCH ×3 (05:11→22:00)
[2022-03-18] MEDS: HYDROmorphone INJ 0.5 MG/0.5 ML SYR IV PRN ×3 (06:05→23:49)
[2022-03-18] MEDS: THIAMINE HCL 100 MG in SYRINGE 9 ML IV SCH (07:45)
[2022-03-18] MEDS: UMECLIDINIUM BROMIDE 62.5MCG/BLISTER 7 PUFFS/INHALER INH SCH (07:45)
[2022-03-18] MEDS: FOLIC ACID 1 MG in SYRINGE 9.8 ML IV SCH (07:45)
[2022-03-18] MEDS: FLUTICASONE/VILANTEROL 100/25MCG 14 PUFFS/INHALER INH SCH (07:46)
[2022-03-18] MEDS: amLODIPine BESYLATE 5 MG TAB PO SCH (07:46)
[2022-03-18] MEDS: lisinopril 20 MG TAB PO SCH (07:46)
[2022-03-18 09:01] LABS: Creatinine Clr Calc Pharmacy 178.5 ml/min; Est GFR (African American) 127.8 ml/min; Est GFR (Non-African American) 110.3 ml/min
[2022-03-18 09:58] LABS: Hematocrit (blood only) 29.1 % (42-52); Hemoglobin 9.7 g/dL (14.0-18.0); Mean Corpuscular Hemoglobin 32.8 pg (25-34); Mean Corpuscular Hgb Conc 33.3 g/dL (32-36); Mean Corpuscular Volume 98.3 fL (80-100); Mean Platelet Volume 10.3 fL (7.4-10.4); Platelet Count 166 K/uL (130-400); RDW Coefficient of Variation 13.6 % (11.5-14.5); RDW Standard Deviation 48.6 fL (36.4-46.3); Red Blood Count 2.96 M/uL (4.7-6.1); White Blood Count 11.89 K/uL (4.8-10.8)
[2022-03-18 10:11] LABS: Albumin Globulin Ratio 1.3 (0.9-2); Albumin Level 3.1 gm/dl (3.4-5.0); BUN Creatinine Ratio 15.6 (10-20); Bilirubin,Total 1.9 mg/dl (0.2-1.0); Calcium 7.8 mg/dl (8.5-10.1); Creatinine Clr Calc Pharmacy 186.5 ml/min; Est GFR (African American) 130.1 ml/min; Est GFR (Non-African American) 112.3 ml/min; Globulin 2.4 gm/dl (2.5-4.0); Potassium 3.6 mmol/L (3.5-5.1); Total Protein 5.5 gm/dl (6.0-8.3)
[2022-03-18 10:22] LABS: Basophils # (auto) 0.02 K/uL (0-0.2); Basophils % (auto) 0.2 %; Eosinophils # (auto) 0.03 K/uL (0-0.5); Eosinophils % (auto) 0.3 %; Immature Granulocytes # (auto) 0.04 K/uL (0.00-0.02); Immature Granulocytes % (auto) 0.3 %; Lymphocytes # (auto) 1.31 K/uL (1.2-3.4); Monocytes # (auto) 1.71 K/uL (0.11-0.59); Monocytes % (auto) 14.4 %; Neutrophils # (auto) 8.78 K/uL (1.4-6.5); Neutrophils % (auto) 73.8 %
--- NOTE | 2022-03-18 13:00 | Pharmacy Report ---
Pharmacy Vanc AUC Short Note - Date of Service March 18, 2022 - Assessment & Plan Assessment 72 year old M started on vancomycin/zosyn empirically for positive blood cultures. Patient admitted with mechanical fall. Febrile on admission Plan Vancomycin * AUC/ILIANA is the preferred PK/PD target for vancomycin * AUC guided dosing is effective and associated with decreased risk of nephrotoxicity compared to traditional trough targets * Patient started on vancomycin 1500 mg iv q 12 hrs * This dosing is estimated to achieve a trough ~17 and is predicted to achieve target AUC/ILIANA of 400-600 mg/L.hr and may be associated with a 13 % risk of nephrotoxicity * Plan to order level in next 1-2 days if continued Zosyn * 3.375 gm iv q 8 hr - appropriate for CrCl >20 Pharmacy will continue to follow and will adjust dose/frequency as necessary. Thank you.
--- NOTE | 2022-03-18 13:31 | Electrocardiogram Report ---
Test Reason : Blood Pressure : / mmHG Vent. Rate : 095 BPM Atrial Rate : 095 BPM P-R Int : 208 ms QRS Dur : 078 ms QT Int : 358 ms P-R-T Axes : 080 -48 066 degrees QTc Int : 449 ms Poor data quality, interpretation may be adversely affected Normal sinus rhythm Left axis deviation Abnormal ECG When compared with ECG of 11-MAR-2018 11:31, No significant change Confirmed by Gilmar Gonzales ([id number]) on 03/18/2022 1:31:30 PM Referred By: REFERRED SELF Confirmed By:Gilmar Gonzales
[2022-03-18] MEDS: oxyCODONE HCL IR 5 MG TAB (IMMEDIATE RELEASE) PO PRN ×2 (16:23→22:29)
--- NOTE | 2022-03-18 16:34 | Communication Note ---
Date of Service: March 18, 2022 Patient surgery for his hip fracture was canceled yesterday secondary to patient becoming febrile, tachycardic with positive blood cultures. Current blood cu lture showing staph species. Patient will not be able to undergo implantation of hardware at this time. In speaking to [facility], question the possible need for transferring to a tertiary facility for further care?
--- NOTE | 2022-03-18 17:16 | Hospitalist Progress Note ---
Date of Service March 18, 2022 Assessment & Plan (1) Closed fracture of right hip: Plan: Mechanical fall on the right side when he tripped on the steps as he was coming down in his apartment Noted to have closed fracture of the right hip Appreciate Ortho input and recommendation for proposed surgery today 03/17/2022 There is no contraindication for proposed surgery Remains hemodynamically stable with blood pressure on the upper side and minimally tachycardic Cannot have surgery until blood culture is negative Staph species bacteremia No definite source as of yet Has been on intravenous vancomycin and Zosyn Await sensitivity ID has been consulted (2) Closed right humeral fracture: Plan: Secondary to mechanical fall Likely conservative management as per Ortho (3) Alcoholism: Plan: History of chronic alcoholism Has been under withdrawal protocol No symptoms of active withdrawal at this time No symptoms of withdrawal (4) Fall: Plan: As above (5) COPD (chronic obstructive pulmonary disease): Plan: History of COPD without any exacerbation No evidence of pneumonia on chest x-ray Noted to have fever on admission and also as of today White count is not elevated, blood cultures have been taken No source of infection is found-we will will hold off any antibiotic for now No wheezing and/or shortness of breath (6) Sleep apnea: Plan: Stable (7) Hypertension: Plan: Has been on amlodipine and lisinopril We will continue As needed clonidine (8) History of seizure disorder: Plan: No medications for seizure Will observe DVT prophylaxis As per Ortho Admission and Anticipated Discharge Date Admission Date: March 16, 2022 Subjective 03/17/2022 The patient was seen and examined in medical telemetry unit He complains to have pain in the right hip and right shoulder joint Does not have any tremor at rest Denies any shortness of breath and/or palpitation 03/18/2020 The patient was seen and examined in medical telemetry unit He has been complaining of pain in the right hip and right shoulder joint Still has fever No tremors Review of Systems Review of Systems: All systems reviewed and are unremarkable except as noted below Respiratory: Minimal wheezing Cardiovascular: Additional Comments: No palpitation and no chest pain Neurologic: No tremors Physical Exam Physical Exam: Lying in bed with minimal distress due to right shoulder and right hip pain Constitutional: well developed, well nourished, + ill appearing and + obese Eyes: PERRL, conjunctivae normal, anicteric sclerae ENMT: external ear and nose normal, oropharynx normal Respiratory: no respiratory distress Auscultation: + diminished lung sounds, + crackles (Occasional crackles at the bases) and + wheezes (Minimal wheezing anteriorly) Cardiovascular: Rate/Rhythm: regular rate, regular rhythm and + tachycardic Heart Sounds: normal S1 and normal S2; no murmur Extremities: + edema (Trace edema bilaterally) Gastrointestinal (Abdomen): Inspection/Auscultation: + abdomen distended and normal bowel sounds Percussion/Palpation: abdomen soft; abdomen nontender Musculoskeletal: Extremities: + limited ROM of extremities (Right upper extremity) and + leg externally rotated (Right) Neurologic: Alert, awake and oriented x3. Psychiatric: A+Ox3, euthymic affect Lymphatic: no cervical or axillary lymphadenopathy Results & Data Results & Data ([facility]) Vital Signs (Past 12 Hours) Vital Signs Temp Pulse Pulse Resp BP Pulse Ox 03/18/22 15:01 103 H 03/18/22 11:03 38.7 C H 100 H 123/70 93 03/18/22 07:13 105 H 03/18/22 06:49 38.0 C H 104 H 20 128/68 90 Laboratory Results Short CBC 03/18/22 Range/Units 09:35 WBC 11.89 H (4.8-10.8) K/uL Hgb 9.7 L (14.0-18.0) g/dL Hct 29.1 L (42-52) % Plt Count 166 (130-400) K/uL BMP 03/18/22 03/18/22 08:18 09:35 Sodium 132 L Potassium 3.6 Chloride 104 Carbon Dioxide 23 BUN 7 Creatinine 0.47 L 0.45 L Glucose 99 Calcium 7.8 L Liver Function 03/18/22 Range/Units 09:35 Total Bilirubin 1.9 H (0.2-1.0) mg/dl AST 18 (13-39) U/L ALT 17 (7-52) U/L Alkaline Phosphatase 52 (34-104) U/L Albumin 3.1 L (3.4-5.0) gm/dl Medications Administered Current Inpatient Medications Acetaminophen (Acetaminophen 325 Mg Tab) 650 mg PO Q4H PRN PRN Reason: Pain or Fever Stop: 04/15/22 06:21 Last Admin: 03/17/22 23:19 Dose: 650 mg Documented by: Albuterol (Albuterol Hfa 8 Gm Inhaler) 2 puffs INH QID PRN PRN Reason: Shortness Of Breath Or Wheezing Stop: 04/15/22 06:21 Albuterol (Albut/Ipratrop 3mg/0.5mg Neb 3 Ml Vial) 3 ml INH QIDR PRN; Protocol PRN Reason: Shortness Of Breath Or Wheezin Stop: 04/15/22 06:21 Amlodipine Besylate (Amlodipine Besylate 5 Mg Tab) 10 mg PO DAILY IRA Stop: 04/15/22 08:59 Last Admin: 03/18/22 07:46 Dose: 10 mg Documented by: Clonidine HCl (Clonidine Hcl 0.1 Mg Tab) 0.1 mg PO Q4H PRN PRN Reason: Hypertension Stop: 04/15/22 06:21 Last Admin: 03/16/22 17:40 Dose: 0.1 mg Documented by: Fluticasone/Vilanterol (Fluticasone/Vilanterol 100/25mcg 14 Puffs/Inhaler) 1 puffs INH QAM IRA Stop: 04/15/22 08:59 Last Admin: 03/18/22 07:46 Dose: 1 puffs Documented by: Furosemide (Furosemide 40 Mg Tab) 40 mg PO DAILY PRN PRN Reason: Edema Stop: 04/15/22 06:21 Gabapentin (Gabapentin 600 Mg Tab) 600 mg PO Q12H IRA Stop: 03/18/22 18:01 Last Admin: 03/18/22 16:20 Dose: Not Given Documented by: Gabapentin (Gabapentin 600 Mg Tab) 600 mg PO Q24H IRA Stop: 03/19/22 18:01 Hydromorphone HCl (Hydromorphone Inj 0.5 Mg/0.5 Ml Syr) 0.5 mg IV Q3H PRN PRN Reason: Pain Stop: 03/30/22 06:21 Last Admin: 03/18/22 06:05 Dose: 0.5 mg Documented by: Sodium Chloride (Nss 1000ml) 1,000 mls @ 100 mls/hr IV .Q10H IRA Stop: 04/15/22 06:21 Last Infusion: 03/18/22 16:18 Dose: 0 mls/hr Documented by: Thiamine HCl 100 mg/ Syringe 10 mls @ 2 mls/min IV QAM IRA Stop: 04/15/22 08:59 Last Admin: 03/18/22 07:45 Dose: 2 mls/min Documented by: Folic Acid 1 mg/ Syringe 10 mls @ 5 mls/min IV QAM [facility] Stop: 04/15/22 08:59 Last Admin: 03/18/22 07:45 Dose: 5 mls/min Documented by: Piperacillin Sod/Tazobactam (Sod 3.375 gm/ Dextrose) 115 mls @ 28.75 mls/hr IV Q8H [facility]; Protocol Stop: 03/19/22 21:59 Last Infusion: 03/18/22 12:10 Dose: Infused Documented by: Vancomycin HCl 1,500 mg/ (Sodium Chloride) 530 mls @ 200 mls/hr IV Q12H [facility] Stop: 03/20/22 04:59 Last Admin: 03/18/22 16:17 Dose: 200 mls/hr Documented by: Lisinopril (Lisinopril 20 Mg Tab) 20 mg PO DAILY [facility] Stop: 04/15/22 08:59 Last Admin: 03/18/22 07:46 Dose: 20 mg Documented by: Lorazepam (Lorazepam 2 Mg/1 Ml Vial) 1 mg IV UD PRN; Protocol PRN Reason: EtOH Withdrawl AWSS Score 6,7 Stop: 04/15/22 06:21 Lorazepam (Lorazepam 2 Mg/1 Ml Vial) 2 mg IV UD PRN; Protocol PRN Reason: EtOH Withdrawl AWSS Score 8,9 Stop: 04/15/22 06:21 Lorazepam (Lorazepam 2 Mg/1 Ml Vial) 3 mg IV ONCE PRN; Protocol PRN Reason: EtOH Withdrawl AWSS Score >=10 Stop: 04/15/22 06:21 Last Admin: 03/16/22 17:39 Dose: 3 mg Documented by: Miscellaneous Information (Vancomycin Consult Active) 1 ea N/A UD PRN PRN Reason: Consult Stop: 04/16/22 15:55 Miscellaneous Information (Piperacill/Tazobac Consult Active) 1 ea N/A UD PRN PRN Reason: Consult Stop: 04/16/22 15:55 Montelukast Sodium (Montelukast Sodium 10 Mg Tablet) 10 mg PO HS [facility] Stop: 04/15/22 20:59 Last Admin: 03/17/22 20:22 Dose: 10 mg Documented by: Nitroglycerin (Nitroglycerin Sl 0.4 Mg/Tab Tab) 0.4 mg SL UD PRN PRN Reason: Chest Pain Stop: 04/15/22 06:21 Ondansetron HCl (Ondansetron Inj 2 Mg/Ml 2 Ml Vial) 4 mg IV Q6H PRN PRN Reason: Nausea Stop: 04/15/22 06:21 Oxycodone HCl (Oxycodone Hcl Ir 5 Mg Tab (Immediate Release)) 5 mg PO Q6H PRN PRN Reason: Pain Stop: 03/30/22 13:35 Last Admin: 03/18/22 16:23 Dose: 5 mg Documented by: Polyethylene Glycol (Polyethylene (Miralax) 17 Gm Pack) 17 gm PO DAILY PRN PRN Reason: Constipation Stop: 04/15/22 06:21 Trazodone HCl (Trazodone Hcl 100 Mg Tab) 100 mg PO HS IRA Stop: 04/15/22 20:59 Last Admin: 03/17/22 20:22 Dose: 100 mg Documented by: Umeclidinium [place] (Umeclidinium [place] 62.5mcg/Blister 7 Puffs/Inhaler) 1 puffs INH DAILY IRA Stop: 04/15/22 08:59 Last Admin: 03/18/22 07:45 Dose: 1 puffs Documented by: (1) Closed fracture of right hip Encounter type: initial encounter Qualified Code(s): S72.001A - Fracture of unspecified part of neck of right femur, initial encounter for closed fracture (2) Closed right humeral fracture Encounter type: initial encounter Fracture alignment: displaced Fracture morphology: 2-part Humerus Location: surgical neck Qualified Code(s): S42.221A - 2-part displaced fracture of surgical neck of right humerus, initial encounter for closed fracture (3) Fall Encounter type: initial encounter Qualified Code(s): W19.XXXA - Unspecified fall, initial encounter
[2022-03-18] MEDS: MONTELUKAST SODIUM 10 MG TABLET PO SCH (20:31)
[2022-03-18] MEDS: traZODone HCL 100 MG TAB PO SCH (20:31)
[2022-03-19] MEDS: HYDROmorphone INJ 0.5 MG/0.5 ML SYR IV PRN ×6 (03:15→23:07)
[2022-03-19] MEDS: SODIUM CHLORIDE 0.9% 1000ML 1,000 ML IV SCH ×3 (04:59→15:23)
[2022-03-19] MEDS: ACETAMINOPHEN 325 MG TAB PO PRN ×3 (05:18→19:55)
[2022-03-19] MEDS: VANCOMYCIN HCL 1,500 MG in SODIUM CHLORIDE 0.9% 500 ML IV SCH ×2 (05:20→16:43)
[2022-03-19] MEDS: PIPERACILLIN/TAZOBACTAM 3.375 GM in DEXTROSE 5% 100 ML IV SCH ×2 (05:24→13:33)
[2022-03-19 07:25] LABS: Basophils # (auto) 0.03 K/uL (0-0.2); Basophils % (auto) 0.3 %; Eosinophils # (auto) 0.09 K/uL (0-0.5); Eosinophils % (auto) 0.8 %; Hematocrit (blood only) 27.1 % (42-52); Immature Granulocytes # (auto) 0.03 K/uL (0.00-0.02); Immature Granulocytes % (auto) 0.3 %; Lymphocytes # (auto) 1.31 K/uL (1.2-3.4); Lymphocytes % (auto) 11.8 %; Mean Corpuscular Hemoglobin 32.4 pg (25-34); Mean Corpuscular Hgb Conc 33.2 g/dL (32-36); Mean Corpuscular Volume 97.5 fL (80-100); Mean Platelet Volume 10.6 fL (7.4-10.4); Monocytes # (auto) 1.57 K/uL (0.11-0.59); Monocytes % (auto) 14.2 %; Neutrophils # (auto) 8.06 K/uL (1.4-6.5); Neutrophils % (auto) 72.6 %; Platelet Count 181 K/uL (130-400); RDW Coefficient of Variation 13.4 % (11.5-14.5); RDW Standard Deviation 47.6 fL (36.4-46.3); Red Blood Count 2.78 M/uL (4.7-6.1); White Blood Count 11.09 K/uL (4.8-10.8)
[2022-03-19 07:33] LABS: BUN Creatinine Ratio 19.1 (10-20); Calcium 7.9 mg/dl (8.5-10.1); Creatinine Clr Calc Pharmacy 178.5 ml/min; Est GFR (African American) 127.8 ml/min; Est GFR (Non-African American) 110.3 ml/min; Potassium 3.1 mmol/L (3.5-5.1)
[2022-03-19] MEDS: lisinopril 20 MG TAB PO SCH (08:15)
[2022-03-19] MEDS: FOLIC ACID 1 MG in SYRINGE 9.8 ML IV SCH (08:15)
[2022-03-19] MEDS: THIAMINE HCL 100 MG in SYRINGE 9 ML IV SCH (08:15)
[2022-03-19] MEDS: amLODIPine BESYLATE 5 MG TAB PO SCH (08:15)
[2022-03-19] MEDS: oxyCODONE HCL IR 5 MG TAB (IMMEDIATE RELEASE) PO PRN ×3 (08:16→21:33)
[2022-03-19] MEDS ORDERED: POTASSIUM CHLORIDE CRTAB 20 MEQ TABCR PO STA (08:18)
[2022-03-19] MEDS: FLUTICASONE/VILANTEROL 100/25MCG 14 PUFFS/INHALER INH SCH (08:27)
[2022-03-19] MEDS: UMECLIDINIUM BROMIDE 62.5MCG/BLISTER 7 PUFFS/INHALER INH SCH (08:27)
[2022-03-19] MEDS ORDERED: POTASSIUM ACETATE/NSS 10 MEQ/105 ML BAG IV ONE (08:30)
[2022-03-19] MEDS ORDERED: POTASSIUM CHLORIDE / WTR 10 MEQ/100 ML PLCT IV STA (09:30)
--- NOTE | 2022-03-19 14:44 | Hospitalist Progress Note ---
Date of Service March 19, 2022 Assessment & Plan (1) Closed fracture of right hip: Plan: Mechanical fall on the right side when he tripped on the steps as he was coming down in his apartment Noted to have closed fracture of the right hip Appreciate Ortho input and recommendation for proposed surgery today 03/17/2022 There is no contraindication for proposed surgery Remains hemodynamically stable with blood pressure on the upper side and minimally tachycardic Cannot have surgery until blood culture is negative for 48 hours Staph species bacteremia No definite source as of yet Has been on intravenous vancomycin and Zosyn Await sensitivity ID has been consulted-appreciate input and recommendation Blood culture is growing gram-negative staph not lugdunsis-Zosyn has been stopped and further recommendation pending TTE has been ordered (2) Closed right humeral fracture: Plan: Secondary to mechanical fall Likely conservative management as per Ortho (3) Alcoholism: Plan: History of chronic alcoholism Has been under withdrawal protocol No symptoms of active withdrawal at this time No symptoms of withdrawal (4) Fall: Plan: As above (5) COPD (chronic obstructive pulmonary disease): Plan: History of COPD without any exacerbation No evidence of pneumonia on chest x-ray Noted to have fever on admission and also as of today White count is not elevated, blood cultures have been taken No source of infection is found-we will will hold off any antibiotic for now No wheezing and/or shortness of breath (6) Sleep apnea: Plan: Stable (7) Hypertension: Plan: Has been on amlodipine and lisinopril We will continue As needed clonidine (8) History of seizure disorder: Plan: No medications for seizure Will observe DVT prophylaxis As per Ortho Admission and Anticipated Discharge Date Admission Date: March 16, 2022 Subjective 03/17/2022 The patient was seen and examined in medical telemetry unit He complains to have pain in the right hip and right shoulder joint Does not have any tremor at rest Denies any shortness of breath and/or palpitation 03/18/2022 The patient was seen and examined in medical telemetry unit He has been complaining of pain in the right hip and right shoulder joint Still has fever No tremors 03/19/2022 The patient was seen and examined in medical telemetry unit He did not have any more fever since last night Still complains of pain in the right hip and right shoulder joint Complains headache as well Review of Systems Review of Systems: All systems reviewed and are unremarkable except as noted below Respiratory: Minimal wheezing Cardiovascular: Additional Comments: No palpitation and no chest pain Neurologic: No tremors Physical Exam Physical Exam: Lying in bed with minimal distress due to right shoulder and right hip pain Constitutional: well developed, well nourished, + ill appearing and + obese Eyes: PERRL, conjunctivae normal, anicteric sclerae ENMT: external ear and nose normal, oropharynx normal Respiratory: no respiratory distress Auscultation: + diminished lung sounds, + crackles (Occasional crackles at the bases) and + wheezes (Minimal wheezing anteriorly) Cardiovascular: Rate/Rhythm: regular rate, regular rhythm and + tachycardic Heart Sounds: normal S1 and normal S2; no murmur Extremities: + edema (Trace edema bilaterally) Gastrointestinal (Abdomen): Inspection/Auscultation: + abdomen distended and normal bowel sounds Percussion/Palpation: abdomen soft; abdomen nontender Musculoskeletal: Extremities: + limited ROM of extremities (Right upper extremity) and + leg externally rotated (Right) Neurologic: Alert, awake and oriented x3. No tremors and no focal neurodeficit Psychiatric: A+Ox3, euthymic affect Lymphatic: no cervical or axillary lymphadenopathy Results & Data Results & Data ([facility]) Vital Signs (Past 12 Hours) Vital Signs Temp Pulse Pulse Resp BP Pulse Ox 03/19/22 10:58 37.0 C 95 H 18 138/79 96 03/19/22 09:33 102 H 03/19/22 06:50 37.5 C 90 20 127/61 94 03/19/22 04:11 37.2 C 95 H 20 136/76 92 Laboratory Results Short CBC 03/19/22 Range/Units 06:55 WBC 11.09 H (4.8-10.8) K/uL Hgb 9.0 L (14.0-18.0) g/dL Hct 27.1 L (42-52) % Plt Count 181 (130-400) K/uL BMP 03/19/22 06:55 Sodium 132 L Potassium 3.1 L Chloride 104 Carbon Dioxide 21 BUN 9 Creatinine 0.47 L Glucose 103 H Calcium 7.9 L Medications Administered Current Inpatient Medications Acetaminophen (Acetaminophen 325 Mg Tab) 650 mg PO Q4H PRN PRN Reason: Pain or Fever Stop: 04/15/22 06:21 Last Admin: 03/19/22 12:16 Dose: 650 mg Documented by: Albuterol (Albuterol Hfa 8 Gm Inhaler) 2 puffs INH QID PRN PRN Reason: Shortness Of Breath Or Wheezing Stop: 04/15/22 06:21 Albuterol (Albut/Ipratrop 3mg/0.5mg Neb 3 Ml Vial) 3 ml INH QIDR PRN; Protocol PRN Reason: Shortness Of Breath Or Wheezin Stop: 04/15/22 06:21 Amlodipine Besylate (Amlodipine Besylate 5 Mg Tab) 10 mg PO DAILY IRA Stop: 04/15/22 08:59 Last Admin: 03/19/22 08:15 Dose: 10 mg Documented by: Clonidine HCl (Clonidine Hcl 0.1 Mg Tab) 0.1 mg PO Q4H PRN PRN Reason: Hypertension Stop: 04/15/22 06:21 Last Admin: 03/16/22 17:40 Dose: 0.1 mg Documented by: Fluticasone/Vilanterol (Fluticasone/Vilanterol 100/25mcg 14 Puffs/Inhaler) 1 puffs INH QAM IRA Stop: 04/15/22 08:59 Last Admin: 03/19/22 08:27 Dose: 1 puffs Documented by: Furosemide (Furosemide 40 Mg Tab) 40 mg PO DAILY PRN PRN Reason: Edema Stop: 04/15/22 06:21 Gabapentin (Gabapentin 600 Mg Tab) 600 mg PO Q24H IRA Stop: 03/19/22 18:01 Hydromorphone HCl (Hydromorphone Inj 0.5 Mg/0.5 Ml Syr) 0.5 mg IV Q3H PRN PRN Reason: Pain Stop: 03/30/22 06:21 Last Admin: 03/19/22 13:13 Dose: 0.5 mg Documented by: Sodium Chloride (Nss 1000ml) 1,000 mls @ 100 mls/hr IV .Q10H IRA Stop: 04/15/22 06:21 Last Admin: 03/19/22 09:58 Dose: Not Given Documented by: Thiamine HCl 100 mg/ Syringe 10 mls @ 2 mls/min IV QAM IRA Stop: 04/15/22 08:59 Last Admin: 03/19/22 08:15 Dose: 2 mls/min Documented by: Folic Acid 1 mg/ Syringe 10 mls @ 5 mls/min IV QAM [facility] Stop: 04/15/22 08:59 Last Admin: 03/19/22 08:15 Dose: 5 mls/min Documented by: Vancomycin HCl 1,500 mg/ (Sodium Chloride) 530 mls @ 200 mls/hr IV Q12H [facility] Stop: 03/24/22 04:59 Last Infusion: 03/19/22 08:12 Dose: Infused Documented by: Lisinopril (Lisinopril 20 Mg Tab) 20 mg PO DAILY [facility] Stop: 04/15/22 08:59 Last Admin: 03/19/22 08:15 Dose: 20 mg Documented by: Lorazepam (Lorazepam 2 Mg/1 Ml Vial) 1 mg IV UD PRN; Protocol PRN Reason: EtOH Withdrawl AWSS Score 6,7 Stop: 04/15/22 06:21 Lorazepam (Lorazepam 2 Mg/1 Ml Vial) 2 mg IV UD PRN; Protocol PRN Reason: EtOH Withdrawl AWSS Score 8,9 Stop: 04/15/22 06:21 Lorazepam (Lorazepam 2 Mg/1 Ml Vial) 3 mg IV ONCE PRN; Protocol PRN Reason: EtOH Withdrawl AWSS Score >=10 Stop: 04/15/22 06:21 Last Admin: 03/16/22 17:39 Dose: 3 mg Documented by: Miscellaneous Information (Vancomycin Consult Active) 1 ea N/A UD PRN PRN Reason: Consult Stop: 04/16/22 15:55 Montelukast Sodium (Montelukast Sodium 10 Mg Tablet) 10 mg PO HS [facility] Stop: 04/15/22 20:59 Last Admin: 03/18/22 20:31 Dose: 10 mg Documented by: Nitroglycerin (Nitroglycerin Sl 0.4 Mg/Tab Tab) 0.4 mg SL UD PRN PRN Reason: Chest Pain Stop: 04/15/22 06:21 Ondansetron HCl (Ondansetron Inj 2 Mg/Ml 2 Ml Vial) 4 mg IV Q6H PRN PRN Reason: Nausea Stop: 04/15/22 06:21 Oxycodone HCl (Oxycodone Hcl Ir 5 Mg Tab (Immediate Release)) 5 mg PO Q6H PRN PRN Reason: Pain Stop: 03/30/22 13:35 Last Admin: 03/19/22 14:40 Dose: 5 mg Documented by: Polyethylene Glycol (Polyethylene (Miralax) 17 Gm Pack) 17 gm PO DAILY PRN PRN Reason: Constipation Stop: 04/15/22 06:21 Trazodone HCl (Trazodone Hcl 100 Mg Tab) 100 mg PO HS IRA Stop: 04/15/22 20:59 Last Admin: 03/18/22 20:31 Dose: 100 mg Documented by: Umeclidinium [place] (Umeclidinium [place] 62.5mcg/Blister 7 Puffs/Inhaler) 1 puffs INH DAILY IRA Stop: 04/15/22 08:59 Last Admin: 03/19/22 08:27 Dose: 1 puffs Documented by: (1) Closed fracture of right hip Encounter type: initial encounter Qualified Code(s): S72.001A - Fracture of unspecified part of neck of right femur, initial encounter for closed fracture (2) Closed right humeral fracture Encounter type: initial encounter Fracture alignment: displaced Fracture morphology: 2-part Humerus Location: surgical neck Qualified Code(s): S42.221A - 2-part displaced fracture of surgical neck of right humerus, initial encounter for closed fracture (3) Fall Encounter type: initial encounter Qualified Code(s): W19.XXXA - Unspecified fall, initial encounter
--- NOTE | 2022-03-19 16:26 | Orthopedic Progress Note ---
Date of Service March 19, 2022 Assessment & Plan (1) Displaced fracture of right femoral neck: Plan: He has a displaced right hip femoral neck fracture. This will require a hip hemiarthroplasty. However the biggest roadblock is his positive blood cultures. He has coag negative staph growing in both blood culture bottles drawn on 03/16. So far source of infection is unknown. He had a TTE today to evaluate for endocarditis, but no results available yet. Repeat blood cultures drawn this morning are still pending. We cannot safely do any hip hemiarthroplasty until his blood cultures are negative. Infectious disease is recommending waiting 48 hours after blood cultures are negative to proceed with his hip surgery. He is currently being treated with vancomycin. He has been febrile during this admission. We can plan to proceed with surgery once his infection is cleared. (2) Closed fracture of right proximal humerus: Plan: He also has a right proximal humerus fracture. This is mildly displaced. Of note, he reports another proximal humerus fracture in the same shoulder after a fall about 15 months ago, treated nonoperatively. I think his current fracture can be treated nonoperatively as well. We will monitor for displacement in an outpatient setting. He can follow-up in orthopedics clinic about a week after discharge for repeat x-rays of the shoulder. For now, no active motion of that shoulder, and no weightbearing through his right arm. Sling for comfort. Admission and Anticipated Discharge Date Admission Date: March 16, 2022 Subjective Patient lying in bed. No obvious distress, but he endorses pain in his right shoulder and right hip. Besides the pain in those joints from his known fractures, he otherwise generally feels "crappy". He has had poor appetite today, with poor p.o. intake. Physical Exam Physical Exam: Right leg is shortened and externally rotated. Motor and sensory function is intact distally. No gross deformity of the right shoulder. Motor and sensory function is intact in the median, ulnar, radial, and axillary nerve distributions. Compartments are all soft and compressible. Results & Data ([facility]) Vital Signs (Past 12 Hours) Vital Signs Temp Pulse Pulse Resp BP Pulse Ox 03/19/22 16:19 37.6 C H 100 H 20 140/82 94 03/19/22 14:51 89 03/19/22 10:58 37.0 C 95 H 18 138/79 96 03/19/22 09:33 102 H 03/19/22 06:50 37.5 C 90 20 127/61 94 Laboratory Results Blood cultures drawn on 03/16 growing coag negative staph. Blood cultures drawn this morning are still pending. Diagnostic Findings Patient reports his transthoracic echocardiogram was done today. No results are available yet.
[2022-03-19] MEDS ORDERED: GABAPENTIN 600 MG TAB PO SCH (18:00)
[2022-03-19] MEDS: MONTELUKAST SODIUM 10 MG TABLET PO SCH (20:42)
[2022-03-19] MEDS: traZODone HCL 100 MG TAB PO SCH (21:34)
[2022-03-20] MEDS: SODIUM CHLORIDE 0.9% 1000ML 1,000 ML IV SCH ×3 (01:14→20:51)
[2022-03-20] MEDS: ACETAMINOPHEN 325 MG TAB PO PRN ×2 (02:12→11:01)
[2022-03-20] MEDS: oxyCODONE HCL IR 5 MG TAB (IMMEDIATE RELEASE) PO PRN ×3 (03:50→20:48)
[2022-03-20] MEDS ORDERED: VANCOMYCIN TROUGH ONE (04:30)
[2022-03-20 04:42] LABS: Hematocrit (blood only) 28.2 % (42-52); Hemoglobin 9.6 g/dL (14.0-18.0); Mean Corpuscular Hemoglobin 32.7 pg (25-34); Mean Corpuscular Volume 95.9 fL (80-100); Mean Platelet Volume 10.2 fL (7.4-10.4); Platelet Count 229 K/uL (130-400); RDW Coefficient of Variation 13.2 % (11.5-14.5); RDW Standard Deviation 46.5 fL (36.4-46.3); Red Blood Count 2.94 M/uL (4.7-6.1); White Blood Count 10.24 K/uL (4.8-10.8)
[2022-03-20 04:59] LABS: Basophils # (auto) 0.02 K/uL (0-0.2); Basophils % (auto) 0.2 %; Eosinophils # (auto) 0.17 K/uL (0-0.5); Eosinophils % (auto) 1.7 %; Immature Granulocytes # (auto) 0.03 K/uL (0.00-0.02); Immature Granulocytes % (auto) 0.3 %; Lymphocytes # (auto) 1.42 K/uL (1.2-3.4); Lymphocytes % (auto) 13.9 %; Monocytes # (auto) 1.22 K/uL (0.11-0.59); Monocytes % (auto) 11.9 %; Neutrophils # (auto) 7.38 K/uL (1.4-6.5)
[2022-03-20 05:02] LABS: BUN Creatinine Ratio 13.3 (10-20); Calcium 8.2 mg/dl (8.5-10.1); Creatinine Clr Calc Pharmacy 186.5 ml/min; Est GFR (African American) 130.1 ml/min; Est GFR (Non-African American) 112.3 ml/min; Potassium 3.4 mmol/L (3.5-5.1)
[2022-03-20] MEDS: VANCOMYCIN HCL 1,500 MG in SODIUM CHLORIDE 0.9% 500 ML IV SCH ×3 (05:49→23:07)
[2022-03-20] MEDS: HYDROmorphone INJ 0.5 MG/0.5 ML SYR IV PRN ×5 (05:54→22:42)
[2022-03-20] MEDS ORDERED: POTASSIUM CHLORIDE CRTAB 20 MEQ TABCR PO STA (08:14)
[2022-03-20] MEDS: amLODIPine BESYLATE 5 MG TAB PO SCH (08:43)
[2022-03-20] MEDS: lisinopril 20 MG TAB PO SCH (08:44)
[2022-03-20] MEDS: FLUTICASONE/VILANTEROL 100/25MCG 14 PUFFS/INHALER INH SCH (08:45)
[2022-03-20] MEDS: UMECLIDINIUM BROMIDE 62.5MCG/BLISTER 7 PUFFS/INHALER INH SCH (08:46)
[2022-03-20] MEDS: FOLIC ACID 1 MG in SYRINGE 9.8 ML IV SCH (09:07)
[2022-03-20] MEDS: THIAMINE HCL 100 MG in SYRINGE 9 ML IV SCH (09:07)
--- NOTE | 2022-03-20 13:53 | Pharmacy Report ---
Pharmacy Vanc AUC Short Note - Date of Service March 20, 2022 - Assessment & Plan Assessment * Mr Palm is a 72 year old M receiving Vancomycin for treatment of bacteremia. 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 Repeat BCx pending. Suspect that we could de-escalate from vancomycin, but provider would prefer to await further ID recommendations for now. Will follow-up. * Vancomycin trough level was obtained today and indicates subtherapeutic dosing. Will adjust. Plan Vancomycin * AUC/ILIANA is the preferred PK/PD target for vancomycin * AUC guided dosing is effective and associated with decreased risk of nephrotoxicity compared to traditional trough targets * Trough level of 6.7 mcg/mL is subtherapeutic. * Change to Vancomycin 1500 mg IV every 8 hours * This regimen is predicted to achieve target AUC/ILIANA of 400-600 mg/L.hr and may be associated with a 12% risk of nephrotoxicity * If patient remains on vancomycin, will consider re-checking a level in 2-3 days. Pharmacy will continue to follow and will adjust dose/frequency as necessary. Thank you.
--- NOTE | 2022-03-20 15:47 | Hospitalist Progress Note ---
Date of Service March 20, 2022 Assessment & Plan (1) Closed fracture of right hip: Plan: Mechanical fall on the right side when he tripped on the steps as he was coming down in his apartment Noted to have closed fracture of the right hip Appreciate Ortho input and recommendation for proposed surgery today 03/17/2022 There is no contraindication for proposed surgery Remains hemodynamically stable with blood pressure on the upper side and minimally tachycardic Cannot have surgery until blood culture is negative for 48 hours Repeat blood culture from 03/19/2022 is negative so far Sepsis secondary to coagulase-negative staph bacteremia present on admission No definite source as of yet Has been on intravenous vancomycin and Zosyn Await sensitivity-sensitive to clindamycin daptomycin, oxacillin, tetracycline, trimethoprim sulfamethoxazole and vancomycin ID has been consulted-appreciate input and recommendation Blood culture is growing gram-negative staph not lugdunsis-Zosyn has been stopped and further recommendation pending TTE -technically limited study, LV ejection fraction is normal with EF of 60 to 65%, no regional wall motion abnormalities, poorly visualized valvular anatomy without significant stenosis and regurgitation No more fever and or chills (2) Closed right humeral fracture: Plan: Secondary to mechanical fall Likely conservative management as per Ortho (3) Alcoholism: Plan: History of chronic alcoholism Has been under withdrawal protocol No symptoms of active withdrawal at this time No symptoms of withdrawal (4) Fall: Plan: As above (5) COPD (chronic obstructive pulmonary disease): Plan: History of COPD without any exacerbation No evidence of pneumonia on chest x-ray Noted to have fever on admission and also as of today White count is not elevated, blood cultures have been taken No source of infection is found-we will will hold off any antibiotic for now No wheezing and/or shortness of breath (6) Sleep apnea: Plan: Stable (7) Hypertension: Plan: Has been on amlodipine and lisinopril We will continue As needed clonidine (8) History of seizure disorder: Plan: No medications for seizure Will observe DVT prophylaxis As per Ortho Admission and Anticipated Discharge Date Admission Date: March 16, 2022 Subjective 03/17/2022 The patient was seen and examined in medical telemetry unit He complains to have pain in the right hip and right shoulder joint Does not have any tremor at rest Denies any shortness of breath and/or palpitation 03/18/2022 The patient was seen and examined in medical telemetry unit He has been complaining of pain in the right hip and right shoulder joint Still has fever No tremors 03/19/2022 The patient was seen and examined in medical telemetry unit He did not have any more fever since last night Still complains of pain in the right hip and right shoulder joint Complains headache as well 03/20/2022 The patient was seen and examined in medical telemetry unit He did not have any fever for the last 24 hours Repeat blood culture is negative so far Patient remains asymptomatic except pain involving the fracture sites Review of Systems Review of Systems: All systems reviewed and are unremarkable except as noted below Respiratory: Minimal wheezing Cardiovascular: Additional Comments: No palpitation and no chest pain Neurologic: No tremors Physical Exam Physical Exam: Lying in bed with minimal distress due to right shoulder and right hip pain Constitutional: well developed, well nourished, + ill appearing and + obese Eyes: PERRL, conjunctivae normal, anicteric sclerae ENMT: external ear and nose normal, oropharynx normal Respiratory: no respiratory distress Auscultation: + diminished lung sounds, + crackles (Occasional crackles at the bases) and + wheezes (Minimal wheezing anteriorly) Cardiovascular: Rate/Rhythm: regular rate, regular rhythm and + tachycardic Heart Sounds: normal S1 and normal S2; no murmur Extremities: + edema (Trace edema bilaterally) Gastrointestinal (Abdomen): Inspection/Auscultation: + abdomen distended and normal bowel sounds Percussion/Palpation: abdomen soft; abdomen nontender Musculoskeletal: Extremities: + limited ROM of extremities (Right upper extremity) and + leg externally rotated (Right) Neurologic: Alert, awake and oriented x3. No focal sensory or no motor deficit appreciated Psychiatric: A+Ox3, euthymic affect Lymphatic: no cervical or axillary lymphadenopathy Results & Data Results & Data ([facility]) Vital Signs (Past 12 Hours) Vital Signs Temp Pulse Pulse Resp BP Pulse Ox 03/20/22 15:38 37.8 C H 90 20 141/72 H 95 03/20/22 10:49 38.2 C H 99 H 18 131/75 95 03/20/22 07:24 93 H 03/20/22 07:15 37.3 C 94 H 20 129/78 92 Laboratory Results Short CBC 03/20/22 Range/Units 04:20 WBC 10.24 (4.8-10.8) K/uL Hgb 9.6 L (14.0-18.0) g/dL Hct 28.2 L (42-52) % Plt Count 229 (130-400) K/uL [facility] 03/20/22 04:20 Sodium 135 L Potassium 3.4 L Chloride 104 Carbon Dioxide 22 BUN 6 Creatinine 0.45 L Glucose 94 Calcium 8.2 L Medications Administered Current Inpatient Medications Acetaminophen (Acetaminophen 325 Mg Tab) 650 mg PO Q4H PRN PRN Reason: Pain or Fever Stop: 04/15/22 06:21 Last Admin: 03/20/22 11:01 Dose: 650 mg Documented by: Albuterol (Albuterol Hfa 8 Gm Inhaler) 2 puffs INH QID PRN PRN Reason: Shortness Of Breath Or Wheezing Stop: 04/15/22 06:21 Albuterol (Albut/Ipratrop 3mg/0.5mg Neb 3 Ml Vial) 3 ml INH QIDR PRN; Protocol PRN Reason: Shortness Of Breath Or Wheezin Stop: 04/15/22 06:21 Amlodipine Besylate (Amlodipine Besylate 5 Mg Tab) 10 mg PO DAILY [facility] Stop: 04/15/22 08:59 Last Admin: 03/20/22 08:43 Dose: 10 mg Documented by: Clonidine HCl (Clonidine Hcl 0.1 Mg Tab) 0.1 mg PO Q4H PRN PRN Reason: Hypertension Stop: 04/15/22 06:21 Last Admin: 03/16/22 17:40 Dose: 0.1 mg Documented by: Fluticasone/Vilanterol (Fluticasone/Vilanterol 100/25mcg 14 Puffs/Inhaler) 1 puffs INH QAM [facility] Stop: 04/15/22 08:59 Last Admin: 03/20/22 08:45 Dose: 1 puffs Documented by: Furosemide (Furosemide 40 Mg Tab) 40 mg PO DAILY PRN PRN Reason: Edema Stop: 04/15/22 06:21 Hydromorphone HCl (Hydromorphone Inj 0.5 Mg/0.5 Ml Syr) 0.5 mg IV Q3H PRN PRN Reason: Pain Stop: 03/30/22 06:21 Last Admin: 03/20/22 14:58 Dose: 0.5 mg Documented by: Sodium Chloride (Nss 1000ml) 1,000 mls @ 100 mls/hr IV .Q10H [facility] Stop: 04/15/22 06:21 Last Admin: 03/20/22 10:50 Dose: 100 mls/hr Documented by: Thiamine HCl 100 mg/ Syringe 10 mls @ 2 mls/min IV QAM [facility] Stop: 04/15/22 08:59 Last Admin: 03/20/22 09:07 Dose: 2 mls/min Documented by: Folic Acid 1 mg/ Syringe 10 mls @ 5 mls/min IV QAM [facility] Stop: 04/15/22 08:59 Last Admin: 03/20/22 09:07 Dose: 5 mls/min Documented by: Vancomycin HCl 1,500 mg/ (Sodium Chloride) 530 mls @ 200 mls/hr IV Q8H [facility] Stop: 03/24/22 13:59 Last Admin: 03/20/22 14:09 Dose: 200 mls/hr Documented by: Lisinopril (Lisinopril 20 Mg Tab) 20 mg PO DAILY [facility] Stop: 04/15/22 08:59 Last Admin: 03/20/22 08:44 Dose: 20 mg Documented by: Lorazepam (Lorazepam 2 Mg/1 Ml Vial) 1 mg IV UD PRN; Protocol PRN Reason: EtOH Withdrawl AWSS Score 6,7 Stop: 04/15/22 06:21 Lorazepam (Lorazepam 2 Mg/1 Ml Vial) 2 mg IV UD PRN; Protocol PRN Reason: EtOH Withdrawl AWSS Score 8,9 Stop: 04/15/22 06:21 Lorazepam (Lorazepam 2 Mg/1 Ml Vial) 3 mg IV ONCE PRN; Protocol PRN Reason: EtOH Withdrawl AWSS Score >=10 Stop: 04/15/22 06:21 Last Admin: 03/16/22 17:39 Dose: 3 mg Documented by: Miscellaneous Information (Vancomycin Consult Active) 1 ea N/A UD PRN PRN Reason: Consult Stop: 04/16/22 15:55 Montelukast Sodium (Montelukast Sodium 10 Mg Tablet) 10 mg PO [facility] Stop: 04/15/22 20:59 Last Admin: 03/19/22 20:42 Dose: 10 mg Documented by: Nitroglycerin (Nitroglycerin Sl 0.4 Mg/Tab Tab) 0.4 mg SL UD PRN PRN Reason: Chest Pain Stop: 04/15/22 06:21 Ondansetron HCl (Ondansetron Inj 2 Mg/Ml 2 Ml Vial) 4 mg IV Q6H PRN PRN Reason: Nausea Stop: 04/15/22 06:21 Oxycodone HCl (Oxycodone Hcl Ir 5 Mg Tab (Immediate Release)) 5 mg PO Q6H PRN PRN Reason: Pain Stop: 03/30/22 13:35 Last Admin: 03/20/22 12:16 Dose: 5 mg Documented by: Polyethylene Glycol (Polyethylene (Miralax) 17 Gm Pack) 17 gm PO DAILY PRN PRN Reason: Constipation Stop: 04/15/22 06:21 Trazodone HCl (Trazodone Hcl 100 Mg Tab) 100 mg PO HS [facility] Stop: 04/15/22 20:59 Last Admin: 03/19/22 21:34 Dose: 100 mg Documented by: Umeclidinium [place] (Umeclidinium [place] 62.5mcg/Blister 7 Puffs/Inhaler) 1 puffs INH DAILY [facility] Stop: 04/15/22 08:59 Last Admin: 03/20/22 08:46 Dose: 1 puffs Documented by: (1) Closed fracture of right hip Encounter type: initial encounter Qualified Code(s): S72.001A - Fracture of unspecified part of neck of right femur, initial encounter for closed fracture (2) Closed right humeral fracture Encounter type: initial encounter Fracture alignment: displaced Fracture morphology: 2-part Humerus Location: surgical neck Qualified Code(s): S42.221A - 2-part displaced fracture of surgical neck of right humerus, initial encounter for closed fracture (3) Fall Encounter type: initial encounter Qualified Code(s): W19.XXXA - Unspecified fall, initial encounter
[2022-03-20] MEDS: MONTELUKAST SODIUM 10 MG TABLET PO SCH (22:42)
[2022-03-20] MEDS: traZODone HCL 100 MG TAB PO SCH (22:42)
[2022-03-21] MEDS: oxyCODONE HCL IR 5 MG TAB (IMMEDIATE RELEASE) PO PRN ×3 (05:23→20:34)
[2022-03-21] MEDS: SODIUM CHLORIDE 0.9% 1000ML 1,000 ML IV SCH ×2 (05:24→18:26)
[2022-03-21] MEDS: VANCOMYCIN HCL 1,500 MG in SODIUM CHLORIDE 0.9% 500 ML IV SCH ×3 (05:26→21:50)
[2022-03-21 06:16] LABS: Basophils # (auto) 0.03 K/uL (0-0.2); Basophils % (auto) 0.3 %; Eosinophils # (auto) 0.28 K/uL (0-0.5); Eosinophils % (auto) 3.1 %; Hematocrit (blood only) 27.3 % (42-52); Hemoglobin 9.3 g/dL (14.0-18.0); Immature Granulocytes # (auto) 0.02 K/uL (0.00-0.02); Immature Granulocytes % (auto) 0.2 %; Lymphocytes # (auto) 1.45 K/uL (1.2-3.4); Mean Corpuscular Hemoglobin 32.9 pg (25-34); Mean Corpuscular Hgb Conc 34.1 g/dL (32-36); Mean Corpuscular Volume 96.5 fL (80-100); Monocytes % (auto) 15.5 %; Neutrophils # (auto) 5.87 K/uL (1.4-6.5); Neutrophils % (auto) 64.9 %; Platelet Count 262 K/uL (130-400); RDW Coefficient of Variation 13.4 % (11.5-14.5); RDW Standard Deviation 46.8 fL (36.4-46.3); Red Blood Count 2.83 M/uL (4.7-6.1); White Blood Count 9.05 K/uL (4.8-10.8)
[2022-03-21 06:32] LABS: Albumin Globulin Ratio 1.1 (0.9-2); BUN Creatinine Ratio 21.6 (10-20); Bilirubin,Total 1.5 mg/dl (0.2-1.0); Calcium 8.1 mg/dl (8.5-10.1); Creatinine Clr Calc Pharmacy 229.2 ml/min; Est GFR (Non-African American) 121.7 ml/min; Globulin 2.8 gm/dl (2.5-4.0); Potassium 3.3 mmol/L (3.5-5.1); Total Protein 5.8 gm/dl (6.0-8.3)
[2022-03-21] MEDS ORDERED: POTASSIUM CHLORIDE CRTAB 20 MEQ TABCR PO STA (08:10)
[2022-03-21] MEDS: lisinopril 20 MG TAB PO SCH (08:43)
[2022-03-21] MEDS: FOLIC ACID 1 MG in SYRINGE 9.8 ML IV SCH (08:43)
[2022-03-21] MEDS: amLODIPine BESYLATE 5 MG TAB PO SCH (08:43)
[2022-03-21] MEDS: THIAMINE HCL 100 MG in SYRINGE 9 ML IV SCH (08:43)
[2022-03-21] MEDS: UMECLIDINIUM BROMIDE 62.5MCG/BLISTER 7 PUFFS/INHALER INH SCH (08:44)
[2022-03-21] MEDS: FLUTICASONE/VILANTEROL 100/25MCG 14 PUFFS/INHALER INH SCH (08:44)
--- NOTE | 2022-03-21 13:19 | Hospitalist Progress Note ---
Date of Service March 21, 2022 Assessment & Plan (1) Closed fracture of right hip: Plan: Mechanical fall on the right side when he tripped on the steps as he was coming down in his apartment Noted to have closed fracture of the right hip Appreciate Ortho input and recommendation for proposed surgery today 03/17/2022 There is no contraindication for proposed surgery Remains hemodynamically stable with blood pressure on the upper side and minimally tachycardic Cannot have surgery until blood culture is negative for 48 hours Repeat blood culture from 03/19/2022 is negative so far We will discuss with Ortho for possible surgery on Wednesday Sepsis secondary to coagulase-negative staph bacteremia present on admission No definite source as of yet Has been on intravenous vancomycin and Zosyn Await sensitivity-sensitive to clindamycin daptomycin, oxacillin, tetracycline, trimethoprim sulfamethoxazole and vancomycin ID has been consulted-appreciate input and recommendation Blood culture is growing gram-negative staph not lugdunsis-Zosyn has been stopped and further recommendation pending TTE -technically limited study, LV ejection fraction is normal with EF of 60 to 65%, no regional wall motion abnormalities, poorly visualized valvular anatomy without significant stenosis and regurgitation No more fever and or chills Blood cultures from 03/19/2022 remains negative so far (2) Closed right humeral fracture: Plan: Secondary to mechanical fall Likely conservative management as per Ortho (3) Alcoholism: Plan: History of chronic alcoholism Has been under withdrawal protocol No symptoms of active withdrawal at this time No symptoms of withdrawal (4) Fall: Plan: As above (5) COPD (chronic obstructive pulmonary disease): Plan: History of COPD without any exacerbation No evidence of pneumonia on chest x-ray Noted to have fever on admission and also as of today White count is not elevated, blood cultures have been taken No source of infection is found-we will will hold off any antibiotic for now No wheezing and/or shortness of breath (6) Sleep apnea: Plan: Stable (7) Hypertension: Plan: Has been on amlodipine and lisinopril We will continue As needed clonidine (8) History of seizure disorder: Plan: No medications for seizure Will observe DVT prophylaxis As per Ortho Admission and Anticipated Discharge Date Admission Date: March 16, 2022 Subjective 03/17/2022 The patient was seen and examined in medical telemetry unit He complains to have pain in the right hip and right shoulder joint Does not have any tremor at rest Denies any shortness of breath and/or palpitation 03/18/2022 The patient was seen and examined in medical telemetry unit He has been complaining of pain in the right hip and right shoulder joint Still has fever No tremors 03/19/2022 The patient was seen and examined in medical telemetry unit He did not have any more fever since last night Still complains of pain in the right hip and right shoulder joint Complains headache as well 03/20/2022 The patient was seen and examined in medical telemetry unit He did not have any fever for the last 24 hours Repeat blood culture is negative so far Patient remains asymptomatic except pain involving the fracture sites 03/21/2022 The patient was seen and examined in medical telemetry unit He complains today of pain involving the right hip and right shoulder Denies any fever and or chills No symptoms of withdrawal Review of Systems Review of Systems: All systems reviewed and are unremarkable except as noted below Respiratory: Minimal wheezing Cardiovascular: Additional Comments: No palpitation and no chest pain Neurologic: No tremors Physical Exam Physical Exam: Lying in bed with minimal distress due to right shoulder and right hip pain Constitutional: well developed, well nourished, + ill appearing and + obese Eyes: PERRL, conjunctivae normal, anicteric sclerae ENMT: external ear and nose normal, oropharynx normal Neck: trachea midline, no thyromegaly Respiratory: no respiratory distress Auscultation: + diminished lung sounds, + crackles (Occasional crackles at the bases) and + wheezes (Minimal wheezing anteriorly) Cardiovascular: Rate/Rhythm: regular rate, regular rhythm and + tachycardic Heart Sounds: normal S1 and normal S2; no murmur Extremities: + edema (Trace edema bilaterally) Gastrointestinal (Abdomen): Inspection/Auscultation: + abdomen distended and normal bowel sounds Percussion/Palpation: abdomen soft; abdomen nontender Musculoskeletal: Extremities: + limited ROM of extremities (Right upper extremity) and + leg externally rotated (Right) Neurologic: Alert, awake and oriented x3. No focal sensory or no motor deficit appreciated Psychiatric: A+Ox3, euthymic affect Lymphatic: no cervical or axillary lymphadenopathy Results & Data Results & Data ([facility]) Vital Signs (Past 12 Hours) Vital Signs Temp Pulse Pulse Resp BP BP Pulse Ox 03/21/22 11:05 36.9 C 89 18 158/70 H 93 03/21/22 10:37 91 H 03/21/22 07:12 37 C 86 18 139/72 95 03/21/22 05:22 37.0 C 93 H 18 142/77 H 92 Laboratory Results Short CBC 03/21/22 Range/Units 05:35 WBC 9.05 (4.8-10.8) K/uL Hgb 9.3 L (14.0-18.0) g/dL Hct 27.3 L (42-52) % Plt Count 262 (130-400) K/uL BMP 03/21/22 05:35 Sodium 135 L Potassium 3.3 L Chloride 106 Carbon Dioxide 21 BUN 8 Creatinine 0.37 L Glucose 89 Calcium 8.1 L Liver Function 03/21/22 Range/Units 05:35 Total Bilirubin 1.5 H (0.2-1.0) mg/dl AST 29 (13-39) U/L ALT 36 (7-52) U/L Alkaline Phosphatase 61 (34-104) U/L Albumin 3.0 L (3.4-5.0) gm/dl Medications Administered Current Inpatient Medications Acetaminophen (Acetaminophen 325 Mg Tab) 650 mg PO Q4H PRN PRN Reason: Pain or Fever Stop: 04/15/22 06:21 Last Admin: 03/20/22 11:01 Dose: 650 mg Documented by: Albuterol (Albuterol Hfa 8 Gm Inhaler) 2 puffs INH QID PRN PRN Reason: Shortness Of Breath Or Wheezing Stop: 04/15/22 06:21 Albuterol (Albut/Ipratrop 3mg/0.5mg Neb 3 Ml Vial) 3 ml INH QIDR PRN; Protocol PRN Reason: Shortness Of Breath Or Wheezin Stop: 04/15/22 06:21 Amlodipine Besylate (Amlodipine Besylate 5 Mg Tab) 10 mg PO DAILY [facility] Stop: 04/15/22 08:59 Last Admin: 03/21/22 08:43 Dose: 10 mg Documented by: Clonidine HCl (Clonidine Hcl 0.1 Mg Tab) 0.1 mg PO Q4H PRN PRN Reason: Hypertension Stop: 04/15/22 06:21 Last Admin: 03/16/22 17:40 Dose: 0.1 mg Documented by: Fluticasone/Vilanterol (Fluticasone/Vilanterol 100/25mcg 14 Puffs/Inhaler) [facility] Stop: 04/15/22 08:59 Last Admin: 03/21/22 08:44 Dose: 1 puffs Documented by: Furosemide (Furosemide 40 Mg Tab) 40 mg PO DAILY PRN PRN Reason: Edema Stop: 04/15/22 06:21 Hydromorphone HCl (Hydromorphone Inj 0.5 Mg/0.5 Ml Syr) 0.5 mg IV Q3H PRN PRN Reason: Pain Stop: 03/30/22 06:21 Last Admin: 03/20/22 22:42 Dose: 0.5 mg Documented by: Sodium Chloride (Nss 1000ml) 1,000 mls @ 100 mls/hr IV .Q10H [facility] Stop: 04/15/22 06:21 Last Admin: 03/21/22 05:24 Dose: 100 mls/hr Documented by: Thiamine HCl 100 mg/ Syringe 10 mls @ 2 mls/[facility] Stop: 04/15/22 08:59 Last Admin: 03/21/22 08:43 Dose: 2 mls/min Documented by: Folic Acid 1 mg/ Syringe 10 mls @ 5 mls/min IV QAM [facility] Stop: 04/15/22 08:59 Last Admin: 03/21/22 08:43 Dose: 5 mls/min Documented by: Vancomycin HCl 1,500 mg/ (Sodium Chloride) 530 mls @ 200 mls/hr IV Q8H [facility] Stop: 03/24/22 13:59 Last Infusion: 03/21/22 08:45 Dose: Infused Documented by: Lisinopril (Lisinopril 20 Mg Tab) 20 mg PO DAILY [facility] Stop: 04/15/22 08:59 Last Admin: 03/21/22 08:43 Dose: 20 mg Documented by: Lorazepam (Lorazepam 2 Mg/1 Ml Vial) 1 mg IV UD PRN; Protocol PRN Reason: EtOH Withdrawl AWSS Score 6,7 Stop: 04/15/22 06:21 Lorazepam (Lorazepam 2 Mg/1 Ml Vial) 2 mg IV UD PRN; Protocol PRN Reason: EtOH Withdrawl AWSS Score 8,9 Stop: 04/15/22 06:21 Lorazepam (Lorazepam 2 Mg/1 Ml Vial) 3 mg IV ONCE PRN; Protocol PRN Reason: EtOH Withdrawl AWSS Score >=10 Stop: 04/15/22 06:21 Last Admin: 03/16/22 17:39 Dose: 3 mg Documented by: Miscellaneous Information (Vancomycin Consult Active) 1 ea N/A UD PRN PRN Reason: Consult Stop: 04/16/22 15:55 Montelukast Sodium (Montelukast Sodium 10 Mg Tablet) 10 mg PO [facility] Stop: 04/15/22 20:59 Last Admin: 03/20/22 22:42 Dose: 10 mg Documented by: Nitroglycerin (Nitroglycerin Sl 0.4 Mg/Tab Tab) 0.4 mg SL UD PRN PRN Reason: Chest Pain Stop: 04/15/22 06:21 Ondansetron HCl (Ondansetron Inj 2 Mg/Ml 2 Ml Vial) 4 mg IV Q6H PRN PRN Reason: Nausea Stop: 04/15/22 06:21 Oxycodone HCl (Oxycodone Hcl Ir 5 Mg Tab (Immediate Release)) 5 mg PO Q6H PRN PRN Reason: Pain Stop: 03/30/22 13:35 Last Admin: 03/21/22 11:21 Dose: 5 mg Documented by: Polyethylene Glycol (Polyethylene (Miralax) 17 Gm Pack) 17 gm PO DAILY PRN PRN Reason: Constipation Stop: 04/15/22 06:21 Trazodone HCl (Trazodone Hcl 100 Mg Tab) 100 mg PO [facility] Stop: 04/15/22 20:59 Last Admin: 03/20/22 22:42 Dose: 100 mg Documented by: Umeclidinium [place] (Umeclidinium [place] 62.5mcg/Blister 7 Puffs/Inhaler) 1 puffs INH DAILY [facility] Stop: 04/15/22 08:59 Last Admin: 03/21/22 08:44 Dose: 1 puffs Documented by: (1) Closed fracture of right hip Encounter type: initial encounter Qualified Code(s): S72.001A - Fracture of unspecified part of neck of right femur, initial encounter for closed fracture (2) Closed right humeral fracture Encounter type: initial encounter Fracture alignment: displaced Fracture morphology: 2-part Humerus Location: surgical neck Qualified Code(s): S42.221A - 2-part displaced fracture of surgical neck of right humerus, initial encounter for closed fracture (3) Fall Encounter type: initial encounter Qualified Code(s): W19.XXXA - Unspecified fall, initial encounter
[2022-03-21] MEDS: traZODone HCL 100 MG TAB PO SCH (20:34)
[2022-03-21] MEDS: MONTELUKAST SODIUM 10 MG TABLET PO SCH (20:34)
[2022-03-22] MEDS: SODIUM CHLORIDE 0.9% 1000ML 1,000 ML IV SCH ×2 (04:10→14:04)
[2022-03-22] MEDS: oxyCODONE HCL IR 5 MG TAB (IMMEDIATE RELEASE) PO PRN ×3 (04:17→18:31)
[2022-03-22] MEDS: VANCOMYCIN HCL 1,500 MG in SODIUM CHLORIDE 0.9% 500 ML IV SCH ×3 (05:59→22:24)
[2022-03-22] MEDS: FLUTICASONE/VILANTEROL 100/25MCG 14 PUFFS/INHALER INH SCH (07:54)
[2022-03-22] MEDS: lisinopril 20 MG TAB PO SCH (07:54)
[2022-03-22] MEDS: UMECLIDINIUM BROMIDE 62.5MCG/BLISTER 7 PUFFS/INHALER INH SCH (07:54)
[2022-03-22] MEDS: THIAMINE HCL 100 MG in SYRINGE 9 ML IV SCH (07:54)
[2022-03-22] MEDS: FOLIC ACID 1 MG in SYRINGE 9.8 ML IV SCH (07:54)
[2022-03-22] MEDS: amLODIPine BESYLATE 5 MG TAB PO SCH (07:54)
[2022-03-22] MEDS ORDERED: VANCOMYCIN TROUGH ONE (13:30)
[2022-03-22] MEDS ORDERED: HEPARIN SOD 5,000 UNIT/0.5 ML VIAL SQ STA (14:09)
--- NOTE | 2022-03-22 14:10 | Hospitalist Progress Note ---
Date of Service March 22, 2022 Assessment & Plan (1) Closed fracture of right hip: Plan: CarterMechanical fall on the right side when he tripped on the steps as he was coming down in his apartment Noted to have closed fracture of the right hip Appreciate Ortho input and recommendation for proposed surgery today 03/17/2022 There is no contraindication for proposed surgery Remains hemodynamically stable with blood pressure on the upper side and minimally tachycardic Cannot have surgery until blood culture is negative for 48 hours Repeat blood culture from 03/19/2022 is negative so far We will discuss with Ortho for possible surgery on Wednesday-[place] text sent to Dr. Humphries Patient remains stable for surgery Sepsis secondary to coagulase-negative staph bacteremia present on admission No definite source as of yet Has been on intravenous vancomycin and Zosyn Await sensitivity-sensitive to clindamycin daptomycin, oxacillin, tetracycline, trimethoprim sulfamethoxazole and vancomycin ID has been consulted-appreciate input and recommendation Blood culture is growing gram-negative staph not lugdunsis-Zosyn has been stopped and further recommendation pending TTE -technically limited study, LV ejection fraction is normal with EF of 60 to 65%, no regional wall motion abnormalities, poorly visualized valvular anatomy without significant stenosis and regurgitation No more fever and or chills Blood cultures from 03/19/2022 remains negative so far Will discuss with the ID specialist on Wednesday (2) Closed right humeral fracture: Plan: Secondary to mechanical fall Likely conservative management as per Ortho (3) Alcoholism: Plan: History of chronic alcoholism Has been under withdrawal protocol No symptoms of active withdrawal at this time No symptoms of withdrawal (4) Fall: Plan: As above (5) COPD (chronic obstructive pulmonary disease): Plan: History of COPD without any exacerbation No evidence of pneumonia on chest x-ray Noted to have fever on admission and also as of today White count is not elevated, blood cultures have been taken No source of infection is found-we will will hold off any antibiotic for now No wheezing and/or shortness of breath (6) Sleep apnea: Plan: Stable (7) Hypertension: Plan: Has been on amlodipine and lisinopril We will continue As needed clonidine (8) History of seizure disorder: Plan: No medications for seizure Will observe DVT prophylaxis SCDs Will start subcu heparin Admission and Anticipated Discharge Date Admission Date: March 16, 2022 Subjective 03/17/2022 The patient was seen and examined in medical telemetry unit He complains to have pain in the right hip and right shoulder joint Does not have any tremor at rest Denies any shortness of breath and/or palpitation 03/18/2022 The patient was seen and examined in medical telemetry unit He has been complaining of pain in the right hip and right shoulder joint Still has fever No tremors 03/19/2022 The patient was seen and examined in medical telemetry unit He did not have any more fever since last night Still complains of pain in the right hip and right shoulder joint Complains headache as well 03/20/2022 The patient was seen and examined in medical telemetry unit He did not have any fever for the last 24 hours Repeat blood culture is negative so far Patient remains asymptomatic except pain involving the fracture sites 03/21/2022 The patient was seen and examined in medical telemetry unit He complains today of pain involving the right hip and right shoulder Denies any fever and or chills No symptoms of withdrawal 03/22/2022 The patient was seen and examined in medical telemetry unit He remains stable No fever and his blood cultures have been negative the last 24 hours Review of Systems Review of Systems: All systems reviewed and are unremarkable except as noted below Respiratory: Minimal wheezing Cardiovascular: Additional Comments: No palpitation and no chest pain Neurologic: No tremors Physical Exam Physical Exam: Lying in bed with minimal distress due to right shoulder and right hip pain Constitutional: well developed, well nourished, + ill appearing and + obese Eyes: PERRL, conjunctivae normal, anicteric sclerae ENMT: external ear and nose normal, oropharynx normal Neck: trachea midline, no thyromegaly Respiratory: no respiratory distress Auscultation: + diminished lung sounds, + crackles (Occasional crackles at the bases) and + wheezes (Minimal wheezing anteriorly) Cardiovascular: Rate/Rhythm: regular rate, regular rhythm and + tachycardic Heart Sounds: normal S1 and normal S2; no murmur Extremities: + edema (Trace edema bilaterally) Gastrointestinal (Abdomen): Inspection/Auscultation: + abdomen distended and normal bowel sounds Percussion/Palpation: abdomen soft; abdomen nontender Musculoskeletal: Extremities: + limited ROM of extremities (Right upper extremity) and + leg externally rotated (Right) Neurologic: PERRL, EOMI, accommodation nl, no face palsy, no dysarthria Psychiatric: A+Ox3, euthymic affect Lymphatic: no cervical or axillary lymphadenopathy Results & Data Results & Data ([facility]) Vital Signs (Past 12 Hours) Vital Signs Temp Pulse Pulse Resp BP Pulse Ox 03/22/22 11:18 37.1 C 90 16 131/66 92 03/22/22 07:26 36.8 C 74 16 142/74 H 95 03/22/22 06:56 67 03/22/22 04:06 36.9 C 93 H 18 146/71 H 97 Medications Administered Current Inpatient Medications Acetaminophen (Acetaminophen 325 Mg Tab) 650 mg PO Q4H PRN PRN Reason: Pain or Fever Stop: 04/15/22 06:21 Last Admin: 03/20/22 11:01 Dose: 650 mg Documented by: Albuterol (Albuterol Hfa 8 Gm Inhaler) 2 puffs INH QID PRN PRN Reason: Shortness Of Breath Or Wheezing Stop: 04/15/22 06:21 Albuterol (Albut/Ipratrop 3mg/0.5mg Neb 3 Ml Vial) 3 ml INH QIDR PRN; Protocol PRN Reason: Shortness Of Breath Or Wheezin Stop: 04/15/22 06:21 Amlodipine Besylate (Amlodipine Besylate 5 Mg Tab) 10 mg PO DAILY [facility] Stop: 04/15/22 08:59 Last Admin: 03/22/22 07:54 Dose: 10 mg Documented by: Clonidine HCl (Clonidine Hcl 0.1 Mg Tab) 0.1 mg PO Q4H PRN PRN Reason: Hypertension Stop: 04/15/22 06:21 Last Admin: 03/16/22 17:40 Dose: 0.1 mg Documented by: Fluticasone/Vilanterol (Fluticasone/Vilanterol 100/25mcg 14 Puffs/Inhaler) 1 puffs INH QAM [facility] Stop: 04/15/22 08:59 Last Admin: 03/22/22 07:54 Dose: 1 puffs Documented by: Furosemide (Furosemide 40 Mg Tab) 40 mg PO DAILY PRN PRN Reason: Edema Stop: 04/15/22 06:21 Hydromorphone HCl (Hydromorphone Inj 0.5 Mg/0.5 Ml Syr) 0.5 mg IV Q3H PRN PRN Reason: Pain Stop: 03/30/22 06:21 Last Admin: 03/20/22 22:42 Dose: 0.5 mg Documented by: Sodium Chloride (Nss 1000ml) 1,000 mls @ 100 mls/hr IV .Q10H [facility] Stop: 04/15/22 06:21 Last Admin: 03/22/22 14:04 Dose: 100 mls/hr Documented by: Thiamine HCl 100 mg/ Syringe 10 mls @ 2 mls/min IV QAM [facility] Stop: 04/15/22 08:59 Last Admin: 03/22/22 07:54 Dose: 2 mls/min Documented by: Folic Acid 1 mg/ Syringe 10 mls @ 5 mls/min IV QAM [facility] Stop: 04/15/22 08:59 Last Admin: 03/22/22 07:54 Dose: 5 mls/min Documented by: Vancomycin HCl 1,500 mg/ (Sodium Chloride) 530 mls @ 200 mls/hr IV Q8H [facility] Stop: 03/24/22 13:59 Last Admin: 03/22/22 13:05 Dose: 200 mls/hr Documented by: Lisinopril (Lisinopril 20 Mg Tab) 20 mg PO DAILY [facility] Stop: 04/15/22 08:59 Last Admin: 03/22/22 07:54 Dose: 20 mg Documented by: Lorazepam (Lorazepam 2 Mg/1 Ml Vial) 1 mg IV UD PRN; Protocol PRN Reason: EtOH Withdrawl AWSS Score 6,7 Stop: 04/15/22 06:21 Lorazepam (Lorazepam 2 Mg/1 Ml Vial) 2 mg IV UD PRN; Protocol PRN Reason: EtOH Withdrawl AWSS Score 8,9 Stop: 04/15/22 06:21 Lorazepam (Lorazepam 2 Mg/1 Ml Vial) 3 mg IV ONCE PRN; Protocol PRN Reason: EtOH Withdrawl AWSS Score >=10 Stop: 04/15/22 06:21 Last Admin: 03/16/22 17:39 Dose: 3 mg Documented by: Miscellaneous Information (Vancomycin Consult Active) 1 ea N/A UD PRN PRN Reason: Consult Stop: 04/16/22 15:55 Montelukast Sodium (Montelukast Sodium 10 Mg Tablet) 10 mg PO [facility] Stop: 06/01/22 20:59 Last Admin: 03/21/22 20:34 Dose: 10 mg Documented by: Nitroglycerin (Nitroglycerin Sl 0.4 Mg/Tab Tab) 0.4 mg SL UD PRN PRN Reason: Chest Pain Stop: 04/15/22 06:21 Ondansetron HCl (Ondansetron Inj 2 Mg/Ml 2 Ml Vial) 4 mg IV Q6H PRN PRN Reason: Nausea Stop: 04/15/22 06:21 Oxycodone HCl (Oxycodone Hcl Ir 5 Mg Tab (Immediate Release)) 5 mg PO Q6H PRN PRN Reason: Pain Stop: 03/30/22 13:35 Last Admin: 03/22/22 13:11 Dose: 5 mg Documented by: Polyethylene Glycol (Polyethylene (Miralax) 17 Gm Pack) 17 gm PO DAILY PRN PRN Reason: Constipation Stop: 04/15/22 06:21 Trazodone HCl (Trazodone Hcl 100 Mg Tab) 100 mg PO HS [facility] Stop: 04/15/22 20:59 Last Admin: 03/21/22 20:34 Dose: 100 mg Documented by: Umeclidinium [place] (Umeclidinium [place] 62.5mcg/Blister 7 Puffs/Inhaler) 1 puffs INH DAILY [facility] Stop: 04/15/22 08:59 Last Admin: 03/22/22 07:54 Dose: 1 puffs Documented by: (1) Closed fracture of right hip Encounter type: initial encounter Qualified Code(s): S72.001A - Fracture of unspecified part of neck of right femur, initial encounter for closed fracture (2) Closed right humeral fracture Encounter type: initial encounter Fracture alignment: displaced Fracture morphology: 2-part Humerus Location: surgical neck Qualified Code(s): S42.221A - 2-part displaced fracture of surgical neck of right humerus, initial encounter for closed fracture (3) Fall Encounter type: initial encounter Qualified Code(s): W19.XXXA - Unspecified fall, initial encounter
--- NOTE | 2022-03-22 15:24 | Pharmacy Report ---
Pharmacy Vanc AUC Short Note - Date of Service March 22, 2022 - Assessment & Plan Assessment 72 year old M receiving Vancomycin for treatment of bacteremia. * Pertinent microbiologic data includes: 2/4 blood cx growing CoNS (R only to erythromycin). Repeat BCx no growth @ 48h. Suspect that we could de-escalate from vancomycin, but provider would prefer to await further ID recommendations for now Plan Vancomycin * AUC/ILIANA is the preferred PK/PD target for vancomycin * AUC guided dosing is effective and associated with decreased risk of nephrotoxicity compared to traditional trough targets * Vancomycin trough drawn this afternoon (confirmed dose administered after trough was drawn, however timing of documentation is not correct), 10.9mcg/mL and correlates with AUC/ILIANA of 508mg/L.hr which is therapeutic * Continue dose of 1500 mg IV every 8 hours * Will obtain a repeat trough in 48-72hr Pharmacy will continue to follow and will adjust dose/frequency as necessary. Thank you.
--- NOTE | 2022-03-22 17:29 | Communication Note ---
Date of Service: March 22, 2022 Repeat blood cultures negative to date. Will make NPO after midnight for possible OR tomorrow afternoon for his hip pending physician availability.
[2022-03-22] MEDS: traZODone HCL 100 MG TAB PO SCH (20:48)
[2022-03-22] MEDS: MONTELUKAST SODIUM 10 MG TABLET PO SCH (20:48)
[2022-03-22] MEDS: HEPARIN SOD 5,000 UNIT/0.5 ML VIAL SQ SCH (20:49)
[2022-03-23] MEDS: oxyCODONE HCL IR 5 MG TAB (IMMEDIATE RELEASE) PO PRN ×2 (00:33→12:40)
[2022-03-23] MEDS: VANCOMYCIN HCL 1,500 MG in SODIUM CHLORIDE 0.9% 500 ML IV SCH ×3 (05:56→21:58)
[2022-03-23 06:48] LABS: Hematocrit (blood only) 30.6 % (42-52); Hemoglobin 10.3 g/dL (14.0-18.0); Mean Corpuscular Hemoglobin 32.4 pg (25-34); Mean Corpuscular Hgb Conc 33.7 g/dL (32-36); Mean Corpuscular Volume 96.2 fL (80-100); Mean Platelet Volume 9.8 fL (7.4-10.4); Platelet Count 396 K/uL (130-400); RDW Coefficient of Variation 13.5 % (11.5-14.5); RDW Standard Deviation 47.4 fL (36.4-46.3); Red Blood Count 3.18 M/uL (4.7-6.1); White Blood Count 9.32 K/uL (4.8-10.8)
[2022-03-23 06:54] LABS: BUN Creatinine Ratio 18.8 (10-20); Calcium 8.4 mg/dl (8.5-10.1); Creatinine Clr Calc Pharmacy 172.5 ml/min; Est GFR (African American) 126.7 ml/min; Est GFR (Non-African American) 109.3 ml/min; Potassium 3.8 mmol/L (3.5-5.1)
[2022-03-23 06:58] LABS: Basophils # (auto) 0.05 K/uL (0-0.2); Basophils % (auto) 0.5 %; Eosinophils # (auto) 0.29 K/uL (0-0.5); Eosinophils % (auto) 3.1 %; Immature Granulocytes # (auto) 0.04 K/uL (0.00-0.02); Immature Granulocytes % (auto) 0.4 %; Lymphocytes # (auto) 1.75 K/uL (1.2-3.4); Lymphocytes % (auto) 18.8 %; Monocytes # (auto) 1.28 K/uL (0.11-0.59); Monocytes % (auto) 13.7 %; Neutrophils # (auto) 5.91 K/uL (1.4-6.5); Neutrophils % (auto) 63.5 %
[2022-03-23] MEDS: THIAMINE HCL 100 MG in SYRINGE 9 ML IV SCH (09:00)
[2022-03-23] MEDS: amLODIPine BESYLATE 5 MG TAB PO SCH (09:00)
[2022-03-23] MEDS: lisinopril 20 MG TAB PO SCH (09:00)
[2022-03-23] MEDS: FOLIC ACID 1 MG in SYRINGE 9.8 ML IV SCH (09:00)
[2022-03-23] MEDS: UMECLIDINIUM BROMIDE 62.5MCG/BLISTER 7 PUFFS/INHALER INH SCH (09:01)
[2022-03-23] MEDS: FLUTICASONE/VILANTEROL 100/25MCG 14 PUFFS/INHALER INH SCH (09:01)
[2022-03-23] MEDS: HEPARIN SOD 5,000 UNIT/0.5 ML VIAL SQ SCH ×2 (09:05→20:30)
--- NOTE | 2022-03-23 14:37 | History & Physical Bridge Note ---
Date of Service March 23, 2022 History & Physical Bridge Note I have examined the patient, reviewed the History & Physical and in the interval since the performance of the History & Physical I have noted the following changes of clinical significance: no changes noted
[2022-03-23] MEDS ORDERED: ATROPINE SULFATE 0.1 MG/ML 10ML SYR IV PRN (14:47)
[2022-03-23] MEDS ORDERED: ONDANSETRON INJ 2 MG/ML 2 ML VIAL IV PRN ×2 (14:47→19:47)
[2022-03-23] MEDS ORDERED: PHENYLEPHRINE 100MCG/ML 5ML SYR IV PRN (14:47)
[2022-03-23] MEDS ORDERED: ePHEDrine sulfate 50 MG/ML AMP IV PRN (14:47)
[2022-03-23] MEDS ORDERED: MEPERIDINE HCL 25 MG/ML CARP/VIAL IV PRN (14:47)
[2022-03-23] MEDS ORDERED: HYDROmorphone INJ 1 MG/ML SYRINGE IV PRN (14:47)
[2022-03-23] MEDS ORDERED: LABETALOL HCL IV 5 MG/ML 20ML IV PRN (14:47)
--- NOTE | 2022-03-23 14:47 | Anesthesiology Consultation ---
Date of Service March 23, 2022 Assessment & Plan (1) Encounter for pre-operative examination: Chart Review Chart Review: Acceptable Risk for Surgery and Patient NOT seen in Pre Admission Testing Consults Requested none History Surgery Operation Date: 03/17/22 08:20 Proposed Procedures p Hemiarthroplasty Hip Right - Daniel Humphries DO Operation Date: 03/23/22 09:00 Proposed Procedures p Right Bioplar Hemiarthroplasty - Richie Shaikh MD Height/Weight Height: 6 ft 1 in Weight: 102.6 kg Allergies Allergy/AdvReac Type Severity Reaction Status Date / Time No Known Drug Allergies Allergy Unknown NKDA Verified 03/16/22 01:49 Medications Home Medications Medication Instructions Recorded Confirmed Last Taken albuterol sulfate 90 mcg/actuation 2 puff INHALATION QID PRN 03/16/22 03/16/22 Unknown aerosol inhaler amlodipine 10 mg tablet 10 mg PO DAILY 03/16/22 03/16/22 Unknown fluticasone furoate 100 1 ea INHALATION QAM 03/16/22 03/16/22 Unknown mcg-vilanterol 25 mcg/dose inhalation powder (Breo Ellipta) furosemide 40 mg tablet (Lasix) 40 mg PO DAILY PRN 03/16/22 03/16/22 Unknown ipratropium 0.5 mg-albuterol 3 mg 3 ml INHALATION QID PRN 03/16/22 03/16/22 Unknown (2.5 mg base)/3 mL nebulization soln lisinopril 20 mg tablet 20 mg PO DAILY 03/16/22 03/16/22 Unknown montelukast 10 mg tablet 10 mg PO HS 03/16/22 03/16/22 Unknown tiotropium bromide 18 mcg capsule 1 cap INHALATION DAILY 03/16/22 03/16/22 Unknown with inhalation device (Spiriva with HandiHaler) trazodone 100 mg tablet 100 mg PO HS 03/16/22 03/16/22 Unknown Active Medications Generic Name Dose Route Start Last Admin Trade Name Freq PRN Reason Stop Dose Admin Acetaminophen 650 mg 03/16/22 06:22 03/20/22 11:01 Acetaminophen 325 Mg Tab PO 04/15/22 06:21 650 mg Q4H PRN Administration Pain or Fever Amlodipine Besylate 10 mg 03/16/22 09:00 03/23/22 09:00 Amlodipine Besylate 5 Mg Tab PO 04/15/22 08:59 10 mg DAILY [facility] Administration Clonidine HCl 0.1 mg 03/16/22 06:22 03/16/22 17:40 Clonidine Hcl 0.1 Mg Tab PO 04/15/22 06:21 0.1 mg Q4H PRN Administration Hypertension Fluticasone/Vilanterol 1 puffs 03/16/22 09:00 03/23/22 09:01 Fluticasone/Vilanterol 100/25mcg 14 Puffs/Inhaler INH 04/15/22 08:59 1 puffs QAM IRA Administration Heparin Sodium (Porcine) 5,000 units 03/22/22 21:00 03/23/22 09:05 Heparin Sod 5,000 Unit/0.5 Ml Vial SQ 04/21/22 20:59 Not Given Q12 IRA Hydromorphone HCl 0.5 mg 03/16/22 06:22 03/20/22 22:42 Hydromorphone Inj 0.5 Mg/0.5 Ml Syr IV 03/30/22 06:21 0.5 mg Q3H PRN Administration Pain Thiamine HCl 100 mg/ Syringe 10 mls @ 2 mls/min 03/16/22 09:00 03/23/22 09:00 IV 04/15/22 08:59 2 mls/min QAM IRA Administration Folic Acid 1 mg/ Syringe 10 mls @ 5 mls/min 03/16/22 09:00 03/23/22 09:00 IV 04/15/22 08:59 5 mls/min QAM IRA Administration Vancomycin HCl 1,500 mg/ 530 mls @ 200 mls/hr 03/20/22 14:00 03/23/22 13:48 Sodium Chloride IV 03/24/22 13:59 200 mls/hr Q8H IRA Administration Lisinopril 20 mg 03/16/22 09:00 03/23/22 09:00 Lisinopril 20 Mg Tab PO 04/15/22 08:59 20 mg DAILY [facility] Administration Lorazepam 3 mg 03/16/22 06:22 03/16/22 17:39 Lorazepam 2 Mg/1 Ml Vial IV 04/15/22 06:21 3 mg ONCE PRN Administration EtOH Withdrawl AWSS Score >=10 Protocol Montelukast Sodium 10 mg 03/16/22 21:00 03/22/22 20:48 Montelukast Sodium 10 Mg Tablet PO 04/15/22 20:59 10 mg HS IRA Administration Oxycodone HCl 5 mg 03/16/22 13:36 03/23/22 12:40 Oxycodone Hcl Ir 5 Mg Tab (Immediate Release) PO 03/30/22 13:35 5 mg Q6H PRN Administration Pain Trazodone HCl 100 mg 03/16/22 21:00 03/22/22 20:48 Trazodone Hcl 100 Mg Tab PO 04/15/22 20:59 100 mg HS IRA Administration Umeclidinium [place] 1 puffs 03/16/22 09:00 03/23/22 09:01 Umeclidinium [place] 62.5mcg/Blister 7 Puffs/Inhaler INH 04/15/22 08:59 1 puffs DAILY IRA Administration NPO Date Last Intake of Fluids: 03/22/22 Time Last Intake of Fluids: 22:00 Last Intake of Fluids Comment: water only as per pt Date Last Intake of Solids: 03/22/22 Time Last Intake of Solids: 17:00 Past Medical History Medical History Alcoholism Anemia COPD (chronic obstructive pulmonary disease) History of seizure disorder Hypertension Lumbar stenosis (03/28/14) Sleep apnea Smoker Past Surgical History Surgical History History of back surgery Social History Smoking Status: Former smoker tobacco type: cigarettes Smoking cigarettes per day: 1.5 Do You Dip or Chew Tobacco: No Smoking End Date: NOVEMBER 2021 Hx Alcohol Use: Yes Alcohol type: beer alcohol intake frequency: 3 or more drinks per day Alcohol Intake Frequency Comment: DAILY- 5-10 PER DAY Hx Substance Use: No substance use type: does not use Physical Exam Vital Signs Last Vital Signs Temp 36.9 C 03/23/22 11:37 Pulse 90 03/23/22 11:37 Resp 16 03/23/22 14:13 BP 128/77 03/23/22 11:37 Pulse Ox 93 03/23/22 11:37 Testing Laboratory Results 03/23/22 06:04 03/23/22 06:04 PT 11.4 Seconds (9.0-12.0) 03/17/22 14:19 INR 1.1 (0.9-1.1) 03/17/22 14:19 Urine Color Yellow 03/16/22 12:32 Urine Appearance Clear (Clear) 03/16/22 12:32 Urine pH 5.5 (4.5-7.5) 03/16/22 12:32 Ur Specific [place] 1.017 (1.000-1.030) 03/16/22 12:32 Urine Protein Negative (Negative) 03/16/22 12:32 Urine Glucose (UA) Negative (Negative) 03/16/22 12:32 Urine Ketones 2+ (Negative) H 03/16/22 12:32 Urine Nitrite Negative (Negative) 03/16/22 12:32 Ur Leukocyte Esterase Negative (Negative) 03/16/22 12:32 Blood Type O Positive 03/17/22 14:19 Antibody Screen NEGATIVE 03/17/22 14:19 03/16/22 18:28 Aerobic Blood Culture - Final Blood No growth in Aerobic bottle after 5 days. Anaerobic Blood Culture - Final Coag neg staph not lugdunensis 03/16/22 18:20 Aerobic Blood Culture - Final Blood No growth in Aerobic bottle after 5 days. Anaerobic Blood Culture - Final Coag neg staph not lugdunensis 03/19/22 06:59 Aerobic Blood Culture - Preliminary Blood No growth in Aerobic bottle after 48 hours. Anaerobic Blood Culture - Preliminary No growth in Anaerobic bottle after 48 hours. 03/19/22 06:55 Aerobic Blood Culture - Preliminary Blood No growth in Aerobic bottle after 48 hours. Anaerobic Blood Culture - Preliminary No growth in Anaerobic bottle after 48 hours. Electrocardiogram Date: 03/16/22 Poor data quality, interpretation may be adversely affected, rate 95 bpm Normal sinus rhythm Left axis deviation Abnormal ECG When compared with ECG of 11-MAR-2018 11:31, QRS axis Shifted left Chest X-Ray Date: 03/16/22 IMPRESSION: 1. No acute cardiopulmonary abnormality. 2. Acute fracture of the right humeral surgical neck.
[2022-03-23] MEDS ORDERED: fentaNYL citrate 100 MCG/2 ML VIAL ONE ×2 (14:57→16:35)
[2022-03-23] MEDS ORDERED: PROPOFOL IV EMULSION 10 MG/ML 20 ML VIAL IV ONE (14:57)
[2022-03-23] MEDS ORDERED: SUCCINYLCHOLINE 100MG/5ML SYR IV ONE (14:57)
[2022-03-23] MEDS ORDERED: DEXAMETHASONE SOD INJ 4 MG/ML VIAL ONE (15:29)
[2022-03-23] MEDS ORDERED: ONDANSETRON INJ 2 MG/ML 2 ML VIAL ONE (15:29)
[2022-03-23] MEDS ORDERED: HYDROmorphone INJ 1 MG/ML SYRINGE ONE ×2 (15:31→18:16)
[2022-03-23] MEDS ORDERED: TRANEXAMIC ACID / 0.7% NACL 1000MG/100ML BAG IV ONE (15:52)
[2022-03-23] MEDS ORDERED: PHENYLEPHRINE HCL 10 MG/ML VIAL ONE (15:57)
--- NOTE | 2022-03-23 17:00 | Hospitalist Progress Note ---
Date of Service March 23, 2022 Assessment & Plan (1) Fall: (2) Closed fracture of right hip: Plan: Mechanical fall on the right side when he tripped on the steps as he was coming down in his apartment Noted to have closed fracture of the right hip There is no contraindication for proposed surgery Remains hemodynamically stable with blood pressure on the upper side and minimally tachycardic Repeat blood culture from 03/19/2022 is negative so far Plan for right hip surgery surgery repair today Fall precaution Sepsis secondary to coagulase-negative staph bacteremia present on admission No definite source as of yet Has been on intravenous vancomycin and Zosyn Await sensitivity-sensitive to clindamycin daptomycin, oxacillin, tetracycline, trimethoprim sulfamethoxazole and vancomycin ID on board Blood culture is growing gram-negative staph not lugdunsis-Zosyn has been stopped TTE -technically limited study, LV ejection fraction is normal with EF of 60 to 65%, no regional wall motion abnormalities, poorly visualized valvular anatomy without significant stenosis and regurgitation No more fever and or chills Repeat Blood cultures from 03/19/2022 remains negative so far case discussed with ID today that recommended to complete 4 weeks course of antibiotic with iV Vanco (3) Closed right humeral fracture: Plan: Secondary to mechanical fall Likely conservative management as per Ortho (4) Alcoholism: Plan: History of chronic alcoholism Has been under withdrawal protocol No symptoms of active withdrawal at this time No symptoms of withdrawal Counseling on alcohol cessation (5) COPD (chronic obstructive pulmonary disease): Plan: History of COPD without any exacerbation No evidence of pneumonia on chest x-ray No wheezing and/or shortness of breath Stable (6) Sleep apnea: Plan: Stable (7) Hypertension: Plan: Has been on amlodipine and lisinopril We will continue As needed clonidine (8) History of seizure disorder: Plan: No medications for seizure Will observe DVT prophylaxis subq heparin on hold since patient anticipate surgery today Admission and Anticipated Discharge Date Admission Date: March 16, 2022 Subjective Pt was seen and examined for right hip and right shoulder fracture Ling in bed with no acute distress Plan to go to OR today Denies any chest pain, palpitation, dizziness and SOB Review of Systems Review of Systems: All systems reviewed & are unremarkable except as noted in Subjective Physical Exam Physical Exam: General- No acute distress Head- atraumatic Eyes- PERRL, EOMI, ENT- oropharynx clear Neck- supple, no JVD Lungs- +diminished breath sound Heart- regular rhythm; no murmur Abdomen- normal bowel sounds, soft, nontender Extremities- no calf tenderness, +limited ROM of extremities (Right upper extremity) and + leg externally rotated (Right) Neuro- alert, oriented x 3; PERRL, EOMI; no facial palsy; no dysarthria Skin- warm & dry Results & Data Results & [facility]) Vital Signs (Past 12 Hours) Vital Signs Temp Pulse Pulse Resp BP Pulse Ox 03/23/22 14:13 16 03/23/22 11:37 36.9 C 90 18 128/77 93 03/23/22 07:47 36.7 C 87 18 133/70 95 03/23/22 06:15 84 (1) Fall Encounter type: initial encounter Qualified Code(s): W19.XXXA - Unspecified fall, initial encounter (2) Closed right humeral fracture Encounter type: initial encounter Fracture alignment: displaced Fracture morphology: 2-part Humerus Location: surgical neck Qualified Code(s): S42.221A - 2-part displaced fracture of surgical neck of right humerus, initial encounter for closed fracture (3) Closed fracture of right hip Encounter type: initial encounter Qualified Code(s): S72.001A - Fracture of unspecified part of neck of right femur, initial encounter for closed fracture
[2022-03-23] MEDS ORDERED: BUPIVACAINE 0.5 % 5 MG/1 ML MPF 30ML VIAL ONE (17:19)
[2022-03-23] MEDS ORDERED: KETAMINE 50 MG/5 ML SYRINGE ONE (17:23)
[2022-03-23] MEDS ORDERED: ALBUTEROL HFA INHALER 8.5 GM ONE (17:47)
--- NOTE | 2022-03-23 17:53 | Operative Report ---
Post Operative Report Pre & Post Diagnosis Operation Date: 03/17/22 08:20 <No data on this case meets the specified criteria> Operation Date: 03/23/22 09:00 Pre-Op Diagnosis: Displaced fracture of right femoral neck complicated by delay to surgery due to positive blood cultures Post-Op Diagnosis: Displaced fracture of right femoral neck complicated by delayed surgery due to positive blood cultures I identified the patient and participated in the time-out.: Yes Procedure Operation Date: 03/17/22 08:20 <No data on this case meets the specified criteria> Operation Date: 03/23/22 09:00 Actual Procedures p Right Cemented Bipolar Hemiarthroplasty(Right), application superficial wound VAC- Richie Shaikh MD Surgeon Richie Shaikh MD Nursing Specialist Fernie NASH Estimated Blood Loss 45 Findings Consistent with Post-Op Diagnosis Neck comminution at fracture site. No clinical osteoporosis. Capsular scar tissue secondary to surgical delay Specimens Femoral head Drains 2 Hemovac drains Anesthesia Type General Complications none Disposition Disposition: Recovery Room Indications 72-year-old male with history of alcoholism and seizure disorder by history several falls in the past current injury [id number] fracturing right shoulder and right hip. Patient relayed to me that he had fallen on the right shoulder several months ago and had another fracture to his shoulder prior to this fracture apparently. Patient had positive blood cultures and delay to surgery has been on antibiotics now cleared for surgical procedure. Radiographs of hip demonstrate a displaced femoral neck fracture with proximal migration of the femur with external rotation of the hip. Description of Procedure Patient was taken to the operating room this is under anesthesia. The patient was placed supine on the operating table and the sacral pad. The hip was steri doris prepped and draped in usual sterile fashion. Exam demonstrated his right knee had previous incision from knee surgery. He had abdominal obesity. Moderate obesity about the hip. A Foley-type approach was performed to the hip. A longitudinal incision was made over the hip. The skin was incised sharply and the subcutaneous tissues were divided down to the fascia. There was significant edema in the subcutaneous tissues with a lot of weeping type tissue no signs of infection. subcutaneous bleeders were cauterized. The fascia lance was divided longitudinally. There was chronically thickened trochanteric bursitis and the trochanteric bursa was resected. The gluteus medius was inspected and this demonstrated intact tendon no abductor tear. The medius was split between its anterior 40% and posterior 60%. The minimus was identified split longitudinally and reflected off of the capsule. An incision was made through the capsule[ which had more than typical thickening and scar tissue] extending up to the acetabulum leaving the acetabular labrum intact. A cuff of tissue of the medius was left on the greater trochanter for repair. The vastus lateralis was split for 3 cm. A muscular capsular flap was elevated off of the fracture. Femoral neck fracture demonstrated several areas and neck combination 1 small V-shaped fracture in the calcar medially and more posteriorly a larger V shaped fracture of the posterior neck. The guide for the Njuice C Yillio hip system was used. The neck cut was made approximately 15 mm proximal to the lesser trochanter in neutral anteversion. There was still little posterior bone loss on the neck below the level of this cut so I chose to go ahead with cemented fixation. After completing the cut this afforded more exposure of the femoral head which was removed with a corkscrew and a hip skid. This was measured at 54 mm diameter. Femoral head articular cartilage was normal. The remnants of the ligamentum teres was resected. The acetabulum demonstrated normal articular cartilage and a normal labrum. The acetabulum was sized for a size 54 component. Exposure was difficult to the scarred capsule so I did have to do an anterior capsular release in order to do the trial of the 54 bipolar trial component. There was a good suction fit with the trial. The femur was then exposed with flexion external rotation. The femoral canal was prepared with a box osteotome followed by canal reamer followed by sequential broaches up to a size 5 component. This had good fit and fill with the trial. Trial reduction was performed with a +0 neck length. The hip was stable through flexion adduction and internal rotation and extension adduction and external rotation. Leg lengths demonstrated equal leg lengths. The trials removed and the canal was irrigated copiously with pulsatile lavage solution. Cement restrictor was placed and then canal was dried with suction. The final component theAccolade C size five 132 degree neck angle cemented stem was cemented with Palacos G cement. After the cement completely cured the cobalt chromium femoral head size 26 mm +0 offset v 40 was impacted onto the stem and then the 54 x 26 bipolar head was assembled and snapped onto the head. The hip was reduced to the acetabulum and stability was verified. Leg lengths were equal and there was complete stability. The wound was copiously irrigated again with pulsatile lavage. 2 Hemovac drains were placed deep into the joint and brought out laterally. First the capsule was repaired with interrupted #1 Vicryl sutures and then the gluteus minimus was repaired interrupted #1 Vicryl sutures and then the minimus was repaired to the greater trochanter with transosseous #5 FiberWire suture with Keanu-Desmond suture technique and then the gluteus medius was repaired with transosseous #5 FiberWire sutures with Keanu- Desmond suture technique followed by lateral row fixation with #2 FiberWire sutures in the split in the vastus lateralis and medius proximally repair with interrupted #1 Vicryl sutures. the fascia lance was repaired with interrupted [id number] #1 Vicryl sutures the subcutaneous tissue closed with large #2 Vicryl sutures to close space followed by 2-0 Vicryl sutures. The skin was closed with dhaval. Diony and Acticoat superficial wound VAC was My physician metallurgical laboratory assistant Fernie NASH participated at list of first job ideas and assisted in all aspects of the surgery including positioning prepping draping leg position and soft tissue retraction instrument management and assisted in the outer closure application superficial wound VAC and will participate in the postoperative care the patient. The patient tolerated the procedure well. I attest to the content of the Intraoperative Record and any orders documented therein. Any exceptions are noted below.
[2022-03-23] MEDS: fentaNYL citrate 100 MCG/2 ML VIAL IV PRN ×4 (18:33→18:48)
--- NOTE | 2022-03-23 18:58 | XRay Report ---
AP PELVIS, CROSSTABLE LATERAL RIGHT HIP History: Right hip fracture. Postop. FINDINGS: The patient is status post a right hip hemiarthroplasty. The hardware is intact. No fractur e or dislocation. Skin dhaval and surgical drains are in place. IMPRESSION: Right hip hemiarthroplasty. No evidence for hardware complication ACT 112: Negative or not required by law. Electronically signed by: Hunter Nicole M.D. 03/23/2022 6:56 PM
--- NOTE | 2022-03-23 19:10 | Anesthesiology Progress Note ---
Date of Service March 23, 2022 Anesthesia Post Procedure Vital Signs Vital Signs: Temp Pulse Pulse Pulse Resp BP Pulse Ox 03/23/22 19:05 37.1 C 97 H 17 142/81 H 95 03/23/22 18:55 100 H 13 157/81 H 94 03/23/22 18:45 98 H 17 139/89 92 03/23/22 18:35 101 H 20 143/94 H 92 03/23/22 18:29 36.8 C 102 H 13 164/89 H 96 03/23/22 14:13 16 03/23/22 11:37 36.9 C 90 18 128/77 93 03/23/22 07:47 36.7 C 87 18 133/70 95 03/23/22 06:15 84 03/23/22 04:06 37.2 C 83 18 137/72 96 03/22/22 23:39 37.0 C 86 20 136/73 94 03/22/22 23:00 88 03/22/22 19:25 37.1 C 95 H 18 145/73 H 96 Pain Intensity Right Hip: Pain Intensity: 4 Right Shoulder: Pain Intensity: 9 Head: Pain Intensity: 6 Transfer of Care Handoff Completed per policy Notes Mental Status: alert / awake / arousable and participated in evaluation Patient Amnestic to Procedure: Yes Nausea / Vomiting: adequately controlled Pain: adequately controlled Airway Patency, RR, SpO2: stable & adequate BP & HR: stable & adequate Hydration State: stable & adequate Anesthetic Complications: no major complications apparent and Pt Satisfied with anesthetic care
[2022-03-23] MEDS ORDERED: NALOXONE HCL 0.4 MG/1 ML VIAL/CARP IV PRN (19:47)
[2022-03-23] MEDS ORDERED: METOCLOPRAMIDE HCL INJ 5 MG/ML 2 ML VIAL IV PRN (19:47)
[2022-03-23] MEDS ORDERED: MAGNESIUM HYDROXIDE SUSP 30 ML UDC PO PRN (19:47)
[2022-03-23] MEDS ORDERED: bisacodyL 10 MG SUPP PR PRN (19:47)
[2022-03-23] MEDS: SODIUM CHLORIDE 0.9% 1000ML 1,000 ML IV SCH (19:59)
[2022-03-23] MEDS: HYDROmorphone INJ 0.5 MG/0.5 ML SYR IV PRN (20:02)
[2022-03-23] MEDS: DOCUSATE SODIUM 100 MG CAP PO SCH (20:29)
[2022-03-23] MEDS: MONTELUKAST SODIUM 10 MG TABLET PO SCH (20:29)
[2022-03-23] MEDS: traZODone HCL 100 MG TAB PO SCH (20:30)
[2022-03-23] MEDS: SENNA 8.6 MG TAB PO SCH (21:55)
[2022-03-24] MEDS: SODIUM CHLORIDE 0.9% 1000ML 1,000 ML IV SCH (05:28)
[2022-03-24] MEDS: VANCOMYCIN HCL 1,500 MG in SODIUM CHLORIDE 0.9% 500 ML IV SCH ×3 (05:30→22:14)
[2022-03-24 07:09] LABS: Basophils # (auto) 0.02 K/uL (0-0.2); Basophils % (auto) 0.2 %; Eosinophils # (auto) 0.02 K/uL (0-0.5); Eosinophils % (auto) 0.2 %; Hematocrit (blood only) 28.8 % (42-52); Hemoglobin 9.7 g/dL (14.0-18.0); Immature Granulocytes # (auto) 0.07 K/uL (0.00-0.02); Immature Granulocytes % (auto) 0.6 %; Lymphocytes % (auto) 12.7 %; Mean Corpuscular Hemoglobin 32.7 pg (25-34); Mean Corpuscular Hgb Conc 33.7 g/dL (32-36); Monocytes # (auto) 1.92 K/uL (0.11-0.59); Monocytes % (auto) 15.3 %; Neutrophils # (auto) 8.93 K/uL (1.4-6.5); Platelet Count 436 K/uL (130-400); RDW Coefficient of Variation 13.5 % (11.5-14.5); RDW Standard Deviation 47.2 fL (36.4-46.3); Red Blood Count 2.97 M/uL (4.7-6.1); White Blood Count 12.56 K/uL (4.8-10.8)
--- NOTE | 2022-03-24 07:37 | Orthopedic Progress Note ---
Date of Service March 24, 2022 Assessment & Plan (1) Displaced fracture of right femoral neck: Plan: Postop day 1 status post right cemented bipolar hemiarthroplasty. PT/OT protocols. Weightbearing as tolerated right lower extremity. Nonweightbearing right upper extremity DVT prophylaxis-Heparin subcu twice daily, SCDs, MOLLY roper. Pain management as written. (2) Closed fracture of right proximal humerus: Plan: He also has a right proximal humerus fracture. This is mildly displaced. Of note, he reports another proximal humerus fracture in the same shoulder after a fall about 15 months ago, treated nonoperatively. I think his current fracture can be treated nonoperatively as well. We will monitor for displacement in an outpatient setting. He can follow-up in orthopedics clinic about a week after discharge for repeat x-rays of the shoulder. For now, no active motion of that shoulder, and no weightbearing through his right arm. Sling for comfort. Admission and Anticipated Discharge Date Admission Date: March 16, 2022 Subjective Postop day 1 Patient currently awake and alert. Going through his morning cleaned up with nursing staff. States his hip feels sore but otherwise he feels well. No other complaints. Physical Exam Physical Exam: Dressings are clean, dry, and intact. Thigh is soft and nontender. Calves are soft nontender. Neurovascular intact. Toes are mobile. He has good dorsiflexion and plantarflexion of the right foot. Hemovac drainage was 60 mL from the previous shift. Results & Data ([facility]) Vital Signs (Past 12 Hours) Vital Signs Temp Pulse Pulse Resp BP Pulse Ox 03/24/22 07:00 37.3 C 95 H 20 154/77 H 95 03/24/22 03:24 37.2 C 91 H 18 149/73 H 95 03/24/22 01:20 37 C 88 18 124/70 93 03/24/22 00:40 37 C 94 H 20 117/72 93 03/23/22 23:19 36.9 C 100 H 18 128/67 93 03/23/22 23:00 100 H 03/23/22 22:17 101 H 20 152/80 H 92 03/23/22 21:20 36.7 C 88 20 145/76 H 93 03/23/22 20:48 36.7 C 97 H 20 137/75 93 03/23/22 20:13 36.8 C 98 H 20 161/81 H 94 03/23/22 20:00 36.9 C 98 H 20 155/90 H 94 03/23/22 19:46 36.7 C 98 H 20 166/85 H 93 03/23/22 19:45 103 H 03/23/22 19:40 103 H Laboratory Results Pending
[2022-03-24 07:46] LABS: BUN Creatinine Ratio 21.4 (10-20); Calcium 8.3 mg/dl (8.5-10.1); Creatinine Clr Calc Pharmacy 147.9 ml/min; Est GFR (African American) 118.9 ml/min; Est GFR (Non-African American) 102.6 ml/min; Potassium 3.8 mmol/L (3.5-5.1)
[2022-03-24] MEDS: oxyCODONE HCL IR 5 MG TAB (IMMEDIATE RELEASE) PO PRN ×3 (08:01→22:14)
[2022-03-24] MEDS: DOCUSATE SODIUM 100 MG CAP PO SCH ×2 (08:02→20:07)
[2022-03-24] MEDS: amLODIPine BESYLATE 5 MG TAB PO SCH (08:03)
[2022-03-24] MEDS: UMECLIDINIUM BROMIDE 62.5MCG/BLISTER 7 PUFFS/INHALER INH SCH (08:03)
[2022-03-24] MEDS: lisinopril 20 MG TAB PO SCH (08:03)
[2022-03-24] MEDS: MULTIVITAMIN TAB PO SCH (08:03)
[2022-03-24] MEDS: FLUTICASONE/VILANTEROL 100/25MCG 14 PUFFS/INHALER INH SCH (08:03)
[2022-03-24] MEDS: THIAMINE HCL 100 MG in SYRINGE 9 ML IV SCH (08:04)
[2022-03-24] MEDS: FOLIC ACID 1 MG in SYRINGE 9.8 ML IV SCH (08:04)
[2022-03-24] MEDS: HEPARIN SOD 5,000 UNIT/0.5 ML VIAL SQ SCH ×2 (08:04→20:07)
[2022-03-24] MEDS: HYDROmorphone INJ 0.5 MG/0.5 ML SYR IV PRN ×2 (10:33→20:08)
[2022-03-24] MEDS ORDERED: VANCOMYCIN TROUGH ONE (13:30)
--- NOTE | 2022-03-24 15:21 | Pharmacy Report ---
Pharmacy Vanc AUC Short Note - Date of Service March 24, 2022 - Assessment & Plan Assessment 72 year old M receiving Vancomycin for treatment of bacteremia. * Pertinent microbiologic data includes: 2/4 blood cx growing CoNS (R only to erythromycin). Repeat BCx no growth @ 48h. Per provider notes, ID recommends continuation of vancomycin x 4 weeks Plan Vancomycin * AUC/ILIANA is the preferred PK/PD target for vancomycin * AUC guided dosing is effective and associated with decreased risk of nephrotoxicity compared to traditional trough targets * Trough level came back at ~15 mcg/ml this correlates to AUC/ILIANA of 500-600 mg/L.hr which is appropriate for infection and may be associated with a 9 % risk of nephrotoxicity * Plan to continue same dosing of 1500 mg iv q 8 hr - will recheck trough in next 3-4 days or sooner if renal function changes Pharmacy will continue to follow and will adjust dose/frequency as necessary. Thank you.
--- NOTE | 2022-03-24 16:44 | Hospitalist Progress Note ---
Date of Service March 24, 2022 Assessment & Plan (1) Fall: (2) Closed fracture of right hip: Plan: Mechanical fall on the right side when he tripped on the steps as he was coming down in his apartment Right Hip xray showed acute mildly impacted and slightly displaced transcervical fracture of the right femur. There is no contraindication for proposed surgery Remains hemodynamically stable with blood pressure on the upper side and minimally tachycardic Repeat blood culture from 03/19/2022 is negative so far S/P day #1 right cemented bipolar hemiarthroplasty performed by Dr. Shaikh Hgb 9.7 today No postop complication Continue pain control Continue monitor H/H PT/OT eval Ortho recommended weightbearing as tolerated right lower extremity. Continue incentive spirometry will need inpatient rehab Sepsis secondary to coagulase-negative staph bacteremia present on admission No definite source as of yet Has been on intravenous vancomycin and Zosyn Await sensitivity-sensitive to clindamycin daptomycin, oxacillin, tetracycline, trimethoprim sulfamethoxazole and vancomycin ID on board Blood culture is growing gram-negative staph not lugdunsis-Zosyn has been stopped TTE -technically limited study, LV ejection fraction is normal with EF of 60 to 65%, no regional wall motion abnormalities, poorly visualized valvular anatomy without significant stenosis and regurgitation No more fever and or chills Repeat Blood cultures from 03/19/2022 remains negative so far case discussed with ID today that recommended to complete 4 weeks course of antibiotic with IV Vanco Will discuss with case management to arrange for IV abx on discharge (3) Closed right humeral fracture: Plan: Secondary to mechanical fall Ortho recommended conservative management Continue Nonweightbearing and no active motion of right upper extremity Continue sling for comfort Follow-up with orthopedics clinic about a week after discharge for repeat x-rays of the shoulder. (4) Alcoholism: Plan: History of chronic alcoholism Has been under withdrawal protocol No symptoms of active withdrawal at this time No symptoms of withdrawal Counseling on alcohol cessation (5) COPD (chronic obstructive pulmonary disease): Plan: History of COPD without any exacerbation No evidence of pneumonia on chest x-ray No wheezing and/or shortness of breath Stable (6) Sleep apnea: Plan: Stable (7) Hypertension: Plan: Has been on amlodipine and lisinopril As needed clonidine Continue monitor BP (8) History of seizure disorder: Plan: No medications for seizure Will observe DVT prophylaxis On subq heparin Admission and Anticipated Discharge Date Admission Date: March 16, 2022 Subjective Pt was seen and examined for postop follow up right hip and right shoulder fracture Sitting in chair with no acute distress Pt said that he continues to have tenderness He said that he already made his mind and thinking to go to rehab since he lives alone Denies any chest pain, palpitation, dizziness and SOB Review of Systems Review of Systems: All systems reviewed & are unremarkable except as noted in Subjective Physical Exam Physical Exam: General- No acute distress Head- atraumatic Eyes- PERRL, EOMI, ENT- oropharynx clear Neck- supple, no JVD Lungs- +diminished breath sound Heart- regular rhythm; no murmur Abdomen- normal bowel sounds, soft, nontender Extremities- no calf tenderness, +limited ROM of extremities (Right upper extremity) and + leg externally rotated (Right) Neuro- alert, oriented x 3; PERRL, EOMI; no facial palsy; no dysarthria Skin- warm & dry Results & Data Results & Data ([facility]) Vital Signs (Past 12 Hours) Vital Signs Temp Pulse Pulse Resp BP Pulse Ox 03/24/22 14:19 100 H 03/24/22 14:00 37.5 C 89 20 161/70 H 94 03/24/22 10:00 36.7 C 101 H 20 117/77 94 03/24/22 07:00 37.3 C 95 H 20 154/77 H 95 03/24/22 06:16 93 H (1) Fall Encounter type: initial encounter Qualified Code(s): W19.XXXA - Unspecified fall, initial encounter (2) Closed right humeral fracture Encounter type: initial encounter Fracture alignment: displaced Fracture morphology: 2-part Humerus Location: surgical neck Qualified Code(s): S42.221A - 2-part displaced fracture of surgical neck of right humerus, initial encounter for closed fracture (3) Closed fracture of right hip Encounter type: initial encounter Qualified Code(s): S72.001A - Fracture of unspecified part of neck of right femur, initial encounter for closed fracture
[2022-03-24] MEDS: SENNA 8.6 MG TAB PO SCH (20:06)
[2022-03-24] MEDS: MONTELUKAST SODIUM 10 MG TABLET PO SCH (20:07)
[2022-03-24] MEDS: ACETAMINOPHEN 325 MG TAB PO PRN (20:08)
[2022-03-24] MEDS: traZODone HCL 100 MG TAB PO SCH (22:14)
[2022-03-25] MEDS ORDERED: oxyCODONE HCL IR 5 MG TAB (IMMEDIATE RELEASE) PO STA (01:09)
[2022-03-25] MEDS: VANCOMYCIN HCL 1,500 MG in SODIUM CHLORIDE 0.9% 500 ML IV SCH ×2 (05:47→17:16)
[2022-03-25] MEDS: HYDROmorphone INJ 0.5 MG/0.5 ML SYR IV PRN ×2 (06:00→19:41)
[2022-03-25 07:31] LABS: Hematocrit (blood only) 28.7 % (42-52); Hemoglobin 9.5 g/dL (14.0-18.0); Mean Corpuscular Hemoglobin 31.8 pg (25-34); Mean Corpuscular Hgb Conc 33.1 g/dL (32-36); Platelet Count 435 K/uL (130-400); RDW Coefficient of Variation 13.8 % (11.5-14.5); RDW Standard Deviation 48.3 fL (36.4-46.3); Red Blood Count 2.99 M/uL (4.7-6.1); White Blood Count 10.74 K/uL (4.8-10.8)
[2022-03-25 07:48] LABS: Calcium 8.3 mg/dl (8.5-10.1); Creatinine Clr Calc Pharmacy 142.8 ml/min; Est GFR (African American) 117.2 ml/min; Est GFR (Non-African American) 101.1 ml/min; Potassium 3.6 mmol/L (3.5-5.1)
[2022-03-25] MEDS: THIAMINE HCL 100 MG in SYRINGE 9 ML IV SCH (08:37)
[2022-03-25] MEDS: FOLIC ACID 1 MG in SYRINGE 9.8 ML IV SCH (08:37)
[2022-03-25] MEDS: amLODIPine BESYLATE 5 MG TAB PO SCH (08:38)
[2022-03-25] MEDS: HEPARIN SOD 5,000 UNIT/0.5 ML VIAL SQ SCH ×2 (08:38→21:43)
[2022-03-25] MEDS: MULTIVITAMIN TAB PO SCH (08:39)
[2022-03-25] MEDS: lisinopril 20 MG TAB PO SCH (08:39)
[2022-03-25] MEDS: DOCUSATE SODIUM 100 MG CAP PO SCH ×2 (08:39→21:44)
[2022-03-25] MEDS: FLUTICASONE/VILANTEROL 100/25MCG 14 PUFFS/INHALER INH SCH (08:40)
[2022-03-25] MEDS: oxyCODONE HCL IR 5 MG TAB (IMMEDIATE RELEASE) PO PRN ×3 (08:57→21:44)
[2022-03-25] MEDS: UMECLIDINIUM BROMIDE 62.5MCG/BLISTER 7 PUFFS/INHALER INH SCH (09:51)
--- NOTE | 2022-03-25 14:03 | Hospitalist Progress Note ---
Date of Service March 25, 2022 Assessment & Plan (1) Fall: (2) Closed fracture of right hip: Plan: Mechanical fall on the right side when he tripped on the steps as he was coming down in his apartment Right Hip xray showed acute mildly impacted and slightly displaced transcervical fracture of the right femur. There is no contraindication for proposed surgery Remains hemodynamically stable with blood pressure on the upper side and minimally tachycardic Repeat blood culture from 03/19/2022 is negative so far S/P day #2 right cemented bipolar hemiarthroplasty performed by Dr. Shaikh Hgb 9.5 today No postop complication Continue pain control Continue monitor H/H Continue incentive spirometry Continue PT/OT eval Ortho recommended weightbearing as tolerated right lower extremity. Waiting on placement for inpatient rehab Sepsis secondary to coagulase-negative staph bacteremia present on admission No definite source as of yet Has been on intravenous vancomycin and Zosyn Await sensitivity-sensitive to clindamycin daptomycin, oxacillin, tetracycline, trimethoprim sulfamethoxazole and vancomycin ID on board Blood culture is growing gram-negative staph not lugdunsis-Zosyn has been stopped TTE -technically limited study, LV ejection fraction is normal with EF of 60 to 65%, no regional wall motion abnormalities, poorly visualized valvular anatomy without significant stenosis and regurgitation No more fever and or chills Repeat Blood cultures from 03/19/2022 remains negative so far Case discussed with ID on Wednesday that recommended to complete 4 weeks course of antibiotic with IV Vanco I reached out with ID today after Pharmacy suggested to transition to Ancef. ID agreed to transition to Ancef to complete a total of 4 weeks course of abx from the negative blood cx on 03/19 Will discuss with case management to arrange for IV abx with Ancef on discharge Will place a peripheral guided u/s (3) Closed right humeral fracture: Plan: Secondary to mechanical fall Ortho recommended conservative management Continue Nonweightbearing and no active motion of right upper extremity Continue sling for comfort Follow-up with orthopedics clinic about a week after discharge for repeat x-rays of the shoulder. (4) Alcoholism: Plan: History of chronic alcoholism Has been under withdrawal protocol No symptoms of active withdrawal at this time No symptoms of withdrawal Counseling on alcohol cessation (5) COPD (chronic obstructive pulmonary disease): Plan: History of COPD without any exacerbation No evidence of pneumonia on chest x-ray No wheezing and/or shortness of breath Stable (6) Sleep apnea: Plan: Stable (7) Hypertension: Plan: Has been on amlodipine and lisinopril As needed clonidine Continue monitor BP (8) History of seizure disorder: Plan: No medications for seizure Continue seizure precaution DVT prophylaxis On subq heparin Admission and Anticipated Discharge Date Admission Date: March 16, 2022 Subjective Pt was seen and examined for postop follow up right hip and right shoulder fracture Sitting in chair with no acute distress Pt said that pain is worsening when he tries to move Denies any chest pain, palpitation, dizziness and SOB Review of Systems Review of Systems: All systems reviewed & are unremarkable except as noted in Subjective Physical Exam Physical Exam: General- No acute distress Head- atraumatic Eyes- PERRL, EOMI, ENT- oropharynx clear Neck- supple, no JVD Lungs- +diminished breath sound Heart- regular rhythm; no murmur Abdomen- normal bowel sounds, soft, nontender Extremities- no calf tenderness, +limited ROM of extremities (Right upper extremity) and + leg externally rotated (Right) Neuro- alert, oriented x 3; PERRL, EOMI; no facial palsy; no dysarthria Skin- warm & dry Results & Data Results & Data ([facility]) Vital Signs (Past 12 Hours) Vital Signs Temp Pulse Pulse Resp BP Pulse Ox 03/25/22 11:36 36.8 C 99 H 20 134/66 94 03/25/22 06:28 37.2 C 97 H 20 149/65 H 92 03/25/22 06:19 103 H (1) Fall Encounter type: initial encounter Qualified Code(s): W19.XXXA - Unspecified fall, initial encounter (2) Closed fracture of right hip Encounter type: initial encounter Qualified Code(s): S72.001A - Fracture of unspecified part of neck of right femur, initial encounter for closed fracture (3) Closed right humeral fracture Encounter type: initial encounter Fracture alignment: displaced Fracture morphology: 2-part Humerus Location: surgical neck Qualified Code(s): S42.221A - 2-part displaced fracture of surgical neck of right humerus, initial encounter for closed fracture
--- NOTE | 2022-03-25 15:30 | Orthopedic Progress Note ---
Date of Service March 25, 2022 Assessment & Plan (1) Displaced fracture of right femoral neck: Plan: Postop day 2 status post right cemented bipolar hemiarthroplasty. PT/OT protocols. Weightbearing as tolerated right lower extremity. Nonweightbearing right upper extremity DVT prophylaxis-Heparin subcu twice daily, Billy, MOLLY roper. Consider oral anticoag upon dc (Apixaban/Xarelto?) Pain management as written. DC plans - [facility] upon DC (2) Closed fracture of right proximal humerus: Plan: He also has a right proximal humerus fracture. This is mildly displaced. Of note, he reports another proximal humerus fracture in the same shoulder after a fall about 15 months ago, treated nonoperatively. I think his current fracture can be treated nonoperatively as well. We will monitor for displacement in an outpatient setting. He can follow-up in orthopedics clinic about a week after discharge for repeat x-rays of the shoulder. For now, no active motion of that shoulder, and no weightbearing through his right arm. Sling for comfort. Admission and Anticipated Discharge Date Admission Date: March 16, 2022 Subjective POD 1 Pt sitting up in bed. No complaints. Comfortable. Pain controlled. States PT went better today. He thinks he is heading to [facility] tomorrow. Physical Exam Physical Exam: JAKE Dressing intact. Thigh soft, NT. Calves soft, NT. NV intact. Toes mobile. Hip located. Results & Data ([facility]) Vital Signs (Past 12 Hours) Vital Signs Temp Pulse Pulse Resp BP Pulse Ox 03/25/22 11:36 36.8 C 99 H 20 134/66 94 03/25/22 06:28 37.2 C 97 H 20 149/65 H 92 03/25/22 06:19 103 H
[2022-03-25] MEDS: ceFAZolin 2000MG 2,000 MG/15 ML SYR IV SCH ×2 (15:56→21:53)
[2022-03-25] MEDS: ACETAMINOPHEN 325 MG TAB PO PRN (18:38)
[2022-03-25] MEDS: MONTELUKAST SODIUM 10 MG TABLET PO SCH (21:44)
[2022-03-25] MEDS: SENNA 8.6 MG TAB PO SCH (21:44)
[2022-03-25] MEDS: traZODone HCL 100 MG TAB PO SCH (21:44)
[2022-03-26] MEDS: ACETAMINOPHEN 325 MG TAB PO PRN (01:45)
[2022-03-26] MEDS: ceFAZolin 2000MG 2,000 MG/15 ML SYR IV SCH ×2 (05:32→14:11)
[2022-03-26 06:57] LABS: Hematocrit (blood only) 28.8 % (42-52); Hemoglobin 9.5 g/dL (14.0-18.0); Mean Corpuscular Hemoglobin 32.2 pg (25-34); Mean Corpuscular Volume 97.6 fL (80-100); Mean Platelet Volume 10.2 fL (7.4-10.4); Platelet Count 448 K/uL (130-400); RDW Coefficient of Variation 13.5 % (11.5-14.5); RDW Standard Deviation 48.5 fL (36.4-46.3); Red Blood Count 2.95 M/uL (4.7-6.1)
[2022-03-26 07:18] LABS: BUN Creatinine Ratio 23.1 (10-20); Calcium 8.6 mg/dl (8.5-10.1); Creatinine Clr Calc Pharmacy 128.8 ml/min; Est GFR (African American) 111.9 ml/min; Est GFR (Non-African American) 96.5 ml/min; Potassium 3.8 mmol/L (3.5-5.1)
--- NOTE | 2022-03-26 08:29 | Orthopedic Progress Note ---
Date of Service March 26, 2022 Assessment & Plan (1) Displaced fracture of right femoral neck: Plan: Postop day 3 status post right cemented bipolar hemiarthroplasty. PT/OT protocols. Weightbearing as tolerated right lower extremity. Nonweightbearing right upper extremity DVT prophylaxis-Heparin subcu twice daily, SCDjesus, MOLLY roper. Consider oral anticoag upon dc (Apixaban/Xarelto?) Pain management as written. Per infectious disease team, patient will require 4 weeks of IV antibiotics. Orthopedics will sign off at this time. Charge instructions placed in the DC section. Please call with any questions. DC plans - [facility] upon DC (2) Closed fracture of right proximal humerus: Plan: He also has a right proximal humerus fracture. This is mildly displaced. Of note, he reports another proximal humerus fracture in the same shoulder after a fall about 15 months ago, treated nonoperatively. I think his current fracture can be treated nonoperatively as well. We will monitor for displacement in an outpatient setting. He can follow-up in orthopedics clinic about a week after discharge for repeat x-rays of the shoulder. For now, no active motion of that shoulder, and no weightbearing through his right arm. Sling for comfort. Admission and Anticipated Discharge Date Admission Date: March 16, 2022 Subjective Postop day 3 status post right bipolar hemiarthroplasty Patient sitting up in bed awake and alert. No complaints this morning. Pain controlled. Patient states he thinks he will be heading to a rehab facility today. Physical Exam Physical Exam: Diony dressing is intact and functioning. Hemovac has been removed. Thigh is soft and nontender. Calves are soft and nontender. Neurovascular is intact. Toes are mobile. Results & Data ([facility]) Vital Signs (Past 12 Hours) Vital Signs Temp Pulse Pulse Resp BP Pulse Ox 03/26/22 07:22 83 03/26/22 06:27 37.3 C 82 20 129/69 94 03/26/22 02:15 37.3 C 93 H 20 121/63 95 03/25/22 22:54 36.9 C 88 20 132/66 94 03/25/22 22:18 85
[2022-03-26] MEDS: THIAMINE HCL 100 MG in SYRINGE 9 ML IV SCH (08:52)
[2022-03-26] MEDS: FOLIC ACID 1 MG in SYRINGE 9.8 ML IV SCH (08:52)
[2022-03-26] MEDS: lisinopril 20 MG TAB PO SCH (08:53)
[2022-03-26] MEDS: UMECLIDINIUM BROMIDE 62.5MCG/BLISTER 7 PUFFS/INHALER INH SCH (08:53)
[2022-03-26] MEDS: amLODIPine BESYLATE 5 MG TAB PO SCH (08:53)
[2022-03-26] MEDS: HEPARIN SOD 5,000 UNIT/0.5 ML VIAL SQ SCH (08:54)
[2022-03-26] MEDS: DOCUSATE SODIUM 100 MG CAP PO SCH (08:54)
[2022-03-26] MEDS: FLUTICASONE/VILANTEROL 100/25MCG 14 PUFFS/INHALER INH SCH (08:54)
[2022-03-26] MEDS: MULTIVITAMIN TAB PO SCH (08:54)
[2022-03-26] MEDS: oxyCODONE HCL IR 5 MG TAB (IMMEDIATE RELEASE) PO PRN ×2 (08:59→15:32)
[2022-03-26] MEDS ORDERED: COVID-19 VAC,AD26(JANSSEN)/PF 0.5 ML SYR IM ONE (09:56)
--- NOTE | 2022-03-26 11:25 | Hospitalist Progress Note ---
Date of Service March 26, 2022 Assessment & Plan (1) Fall: (2) Closed fracture of right hip: Plan: Mechanical fall on the right side when he tripped on the steps as he was coming down in his apartment Right Hip xray showed acute mildly impacted and slightly displaced transcervical fracture of the right femur. There is no contraindication for proposed surgery Remains hemodynamically stable with blood pressure on the upper side and minimally tachycardic Repeat blood culture from 03/19/2022 is negative so far S/P day #3 right cemented bipolar hemiarthroplasty performed by Dr. Shaikh Hemoglobin remains stable at 9.5 Continue pain control Continue incentive spirometry Ortho recommended weightbearing as tolerated right lower extremity. Has been accepted to [facility] and will be transferred this afternoon to continue with the physical therapy Sepsis secondary to coagulase-negative staph bacteremia present on admission No definite source as of yet Has been on intravenous vancomycin and Zosyn Sensitivity-sensitive to clindamycin daptomycin, oxacillin, tetracycline, trimethoprim sulfamethoxazole and vancomycin ID on board Blood culture is growing gram-negative staph not lugdunsis-Zosyn has been stopped TTE -technically limited study, LV ejection fraction is normal with EF of 60 to 65%, no regional wall motion abnormalities, poorly visualized valvular anatomy without significant stenosis and regurgitation No more fever and or chills Repeat Blood cultures from 03/19/2022 remains negative so far Case discussed with ID on Wednesday that recommended to complete 4 weeks course of antibiotic with IV Vanco I reached out with ID today after Pharmacy suggested to transition to Ancef. ID agreed to transition to Ancef to complete a total of 4 weeks course of abx from the negative blood cx on 03/19 Ultrasound-guided line will be placed and intubated to continue next 3 weeks as per recommendation (3) Closed right humeral fracture: Plan: Secondary to mechanical fall Ortho recommended conservative management Continue Nonweightbearing and no active motion of right upper extremity Continue sling for comfort Follow-up with orthopedics clinic about a week after discharge for repeat x-rays of the shoulder. (4) Alcoholism: Plan: History of chronic alcoholism Has been under withdrawal protocol No symptoms of active withdrawal at this time No symptoms of withdrawal Counseling on alcohol cessation No signs and or symptoms of withdrawal (5) COPD (chronic obstructive pulmonary disease): Plan: History of COPD without any exacerbation No evidence of pneumonia on chest x-ray No wheezing and/or shortness of breath Stable and has been saturating on room air (6) Sleep apnea: Plan: Stable (7) Hypertension: Plan: Has been on amlodipine and lisinopril As needed clonidine Continue monitor BP (8) History of seizure disorder: Plan: No medications for seizure Continue seizure precaution DVT prophylaxis On subq heparin DVT prophylaxis will be given with Xarelto or Eliquis as per Ortho Admission and Anticipated Discharge Date Admission Date: March 16, 2022 Subjective 03/17/2022 The patient was seen and examined in medical telemetry unit He complains to have pain in the right hip and right shoulder joint Does not have any tremor at rest Denies any shortness of breath and/or palpitation 03/18/2022 The patient was seen and examined in medical telemetry unit He has been complaining of pain in the right hip and right shoulder joint Still has fever No tremors 03/19/2022 The patient was seen and examined in medical telemetry unit He did not have any more fever since last night Still complains of pain in the right hip and right shoulder joint Complains headache as well 03/20/2022 The patient was seen and examined in medical telemetry unit He did not have any fever for the last 24 hours Repeat blood culture is negative so far Patient remains asymptomatic except pain involving the fracture sites 03/21/2022 The patient was seen and examined in medical telemetry unit He complains today of pain involving the right hip and right shoulder Denies any fever and or chills No symptoms of withdrawal 03/22/2022 The patient was seen and examined in medical telemetry unit He remains stable No fever and his blood cultures have been negative the last 24 hours 03/26/2022 The patient was seen and examined in medical telemetry unit He has been feeling much better and only complains minimal pain involving the right hip and right shoulder No abdominal discomfort, nausea or vomiting and no tremors He will get the COVID booster from [employer] today Review of Systems Review of Systems: All systems reviewed and are unremarkable except as noted below Respiratory: Minimal wheezing Cardiovascular: Additional Comments: No palpitation and no chest pain Neurologic: No tremors Physical Exam Physical Exam: Lying in bed with minimal distress due to right shoulder and right hip pain Constitutional: well developed, well nourished, + ill appearing and + obese Eyes: PERRL, conjunctivae normal, anicteric sclerae ENMT: external ear and nose normal, oropharynx normal Neck: trachea midline, no thyromegaly Respiratory: no respiratory distress Auscultation: + crackles (Occasional crackles at the bases); no diminished lung sounds and no wheezes (Minimal wheezing anteriorly) Cardiovascular: Rate/Rhythm: regular rate, regular rhythm and + tachycardic Heart Sounds: normal S1 and normal S2; no murmur Extremities: + edema (Trace edema bilaterally) Gastrointestinal (Abdomen): Inspection/Auscultation: + abdomen distended and normal bowel sounds Percussion/Palpation: abdomen soft; abdomen nontender Musculoskeletal: Extremities: + limited ROM of extremities (Right upper extremity) and + leg externally rotated (Right) Neurologic: PERRL, EOMI, accommodation nl, no face palsy, no dysarthria Psychiatric: A+Ox3, euthymic affect Lymphatic: no cervical or axillary lymphadenopathy Results & Data Results & Data ([facility]) Vital Signs (Past 12 Hours) Vital Signs Temp Pulse Pulse Resp BP Pulse Ox 03/26/22 07:22 83 03/26/22 06:27 37.3 C 82 20 129/69 94 03/26/22 02:15 37.3 C 93 H 20 121/63 95 Laboratory Results Short CBC 03/26/22 Range/Units 06:00 WBC 10.20 (4.8-10.8) K/uL Hgb 9.5 L (14.0-18.0) g/dL Hct 28.8 L (42-52) % Plt Count 448 H (130-400) K/uL BMP 03/26/22 06:00 Sodium 135 L Potassium 3.8 Chloride 102 Carbon Dioxide 26 BUN 15 Creatinine 0.65 Glucose 97 Calcium 8.6 Medications Administered Current Inpatient Medications Acetaminophen (Acetaminophen 325 Mg Tab) 650 mg PO Q4H PRN PRN Reason: Pain or Fever Stop: 04/15/22 06:21 Last Admin: 03/26/22 01:45 Dose: 650 mg Documented by: Albuterol (Albuterol Hfa 8 Gm Inhaler) 2 puffs INH QID PRN PRN Reason: Shortness Of Breath Or Wheezing Stop: 04/15/22 06:21 Albuterol (Albut/Ipratrop 3mg/0.5mg Neb 3 Ml Vial) 3 ml INH QIDR PRN; Protocol PRN Reason: Shortness Of Breath Or Wheezin Stop: 04/15/22 06:21 Amlodipine Besylate (Amlodipine Besylate 5 Mg Tab) 10 mg PO DAILY IRA Stop: 04/15/22 08:59 Last Admin: 03/26/22 08:53 Dose: 10 mg Documented by: Bisacodyl (Bisacodyl 10 Mg Supp) 10 mg [place] DAILY PRN PRN Reason: Constipation Stop: 04/22/22 19:46 COVID-19 Vaccine mRNA LNP-S (PFR) (PF) (Covid-19 Vacc, Hemanth(Pfizer)/Pf 30 Mcg/0.3 Ml Vial) 0.3 ml IM .ONCE ONE Stop: 03/26/22 11:31 Clonidine HCl (Clonidine Hcl 0.1 Mg Tab) 0.1 mg PO Q4H PRN PRN Reason: Hypertension Stop: 04/15/22 06:21 Last Admin: 03/16/22 17:40 Dose: 0.1 mg Documented by: Docusate Sodium (Docusate Sodium 100 Mg Cap) 100 mg PO BID IRA Stop: 04/22/22 20:59 Last Admin: 03/26/22 08:54 Dose: 100 mg Documented by: Fluticasone/Vilanterol (Fluticasone/Vilanterol 100/25mcg 14 Puffs/Inhaler) 1 puffs INH QAM IRA Stop: 04/15/22 08:59 Last Admin: 03/26/22 08:54 Dose: 1 puffs Documented by: Furosemide (Furosemide 40 Mg Tab) 40 mg PO DAILY PRN PRN Reason: Edema Stop: 04/15/22 06:21 Heparin Sodium (Porcine) (Heparin Sod 5,000 Unit/0.5 Ml Vial) 5,000 units SQ Q12 IRA Stop: 04/21/22 20:59 Last Admin: 03/26/22 08:54 Dose: 5,000 units Documented by: Hydromorphone HCl (Hydromorphone Inj 0.5 Mg/0.5 Ml Syr) 0.5 mg IV Q3H PRN PRN Reason: Pain Stop: 03/30/22 06:21 Last Admin: 03/25/22 19:41 Dose: 0.5 mg Documented by: Thiamine HCl 100 mg/ Syringe 10 mls @ 2 mls/min IV QAM IRA Stop: 04/15/22 08:59 Last Admin: 03/26/22 08:52 Dose: 2 mls/min Documented by: Folic Acid 1 mg/ Syringe 10 mls @ 5 mls/min IV QAM [facility] Stop: 04/15/22 08:59 Last Admin: 03/26/22 08:52 Dose: 5 mls/min Documented by: Cefazolin Sodium (Ancef 2000mg) 2,000 mg in 15 mls @ 3.75 mls/min IV Q8 [facility]; Protocol Stop: 04/08/22 14:29 Last Admin: 03/26/22 05:32 Dose: 3.75 mls/min Documented by: Lisinopril (Lisinopril 20 Mg Tab) 20 mg PO DAILY [facility] Stop: 04/15/22 08:59 Last Admin: 03/26/22 08:53 Dose: 20 mg Documented by: Lorazepam (Lorazepam 2 Mg/1 Ml Vial) 1 mg IV UD PRN; Protocol PRN Reason: EtOH Withdrawl AWSS Score 6,7 Stop: 04/15/22 06:21 Lorazepam (Lorazepam 2 Mg/1 Ml Vial) 2 mg IV UD PRN; Protocol PRN Reason: EtOH Withdrawl AWSS Score 8,9 Stop: 04/15/22 06:21 Lorazepam (Lorazepam 2 Mg/1 Ml Vial) 3 mg IV ONCE PRN; Protocol PRN Reason: EtOH Withdrawl AWSS Score >=10 Stop: 04/15/22 06:21 Last Admin: 03/16/22 17:39 Dose: 3 mg Documented by: Magnesium Hydroxide (Magnesium Hydroxide Susp 30 Ml Udc) 30 ml PO Q6H PRN PRN Reason: Constipation Stop: 04/22/22 19:46 Metoclopramide HCl (Metoclopramide Hcl Inj 5 Mg/Ml 2 Ml Vial) 10 mg IV Q6H PRN PRN Reason: Nausea And Vomiting Stop: 04/22/22 19:46 Montelukast Sodium (Montelukast Sodium 10 Mg Tablet) 10 mg PO HS [facility] Stop: 04/15/22 20:59 Last Admin: 03/25/22 21:44 Dose: 10 mg Documented by: Multivitamins (Multivitamin Tab) 1 tab PO QAM [facility] Stop: 04/23/22 08:59 Last Admin: 03/26/22 08:54 Dose: 1 tab Documented by: Naloxone HCl (Naloxone Hcl 0.4 Mg/1 Ml Vial/Carp) 0.1 mg IV Q5M PRN PRN Reason: Oversedation/Resp Depression Stop: 04/22/22 19:46 Nitroglycerin (Nitroglycerin Sl 0.4 Mg/Tab Tab) 0.4 mg SL UD PRN PRN Reason: Chest Pain Stop: 04/15/22 06:21 Ondansetron HCl (Ondansetron Inj 2 Mg/Ml 2 Ml Vial) 4 mg IV Q6H PRN PRN Reason: Nausea And Vomiting Stop: 04/22/22 19:46 Oxycodone HCl (Oxycodone Hcl Ir 5 Mg Tab (Immediate Release)) 5 - 10 mg PO QID PRN PRN Reason: Pain Stop: 04/08/22 01:08 Last Admin: 03/26/22 08:59 Dose: 10 mg Documented by: Polyethylene Glycol (Polyethylene (Miralax) 17 Gm Pack) 17 gm PO DAILY PRN PRN Reason: Constipation Stop: 04/15/22 06:21 Sennosides (Senna 8.6 Mg Tab) 17.2 mg PO [facility] Stop: 04/22/22 20:59 Last Admin: 03/25/22 21:44 Dose: 17.2 mg Documented by: Trazodone HCl (Trazodone Hcl 100 Mg Tab) 100 mg PO [facility] Stop: 04/15/22 20:59 Last Admin: 03/25/22 21:44 Dose: 100 mg Documented by: Umeclidinium [place] (Umeclidinium [place] 62.5mcg/Blister 7 Puffs/Inhaler) 1 puffs INH DAILY [facility] Stop: 04/15/22 08:59 Last Admin: 03/26/22 08:53 Dose: 1 puffs Documented by: (1) Fall Encounter type: initial encounter Qualified Code(s): W19.XXXA - Unspecified fall, initial encounter (2) Closed right humeral fracture Encounter type: initial encounter Fracture alignment: displaced Fracture morphology: 2-part Humerus Location: surgical neck Qualified Code(s): S42.221A - 2-part displaced fracture of surgical neck of right humerus, initial encounter for closed fracture (3) Closed fracture of right hip Encounter type: initial encounter Qualified Code(s): S72.001A - Fracture of unspecified part of neck of right femur, initial encounter for closed fracture
[2022-03-26] MEDS ORDERED: COVID-19 VACC, TRIS(PFIZER)/PF 30 MCG/0.3 ML VIAL IM ONE (11:30)
--- NOTE | 2022-03-26 16:17 | Discharge Summary ---
Date of Service March 26, 2022 Admission HPI Per Admitting Provider DICTATED BY:Greyson Hernandez MD DATE OF ADMISSION: 03/16/2022 CHIEF COMPLAINT: Status post fall, right humerus and femur fracture. HISTORY OF PRESENT ILLNESS: This is a 72-year-old male with past medical history significant for hyperlipidemia, COPD, moderate obstructive sleep apnea, hypertension, lumbar disk disease, history of seizure disorder, ongoing alcoholism, presents with a fall. The patient says he lives in an apartment, he tripped on the steps and fell down on the right side and was brought in here, having a lot of pain in the right shoulder and right hip. Imaging studies shows right humerus fracture and right femur fracture. The patient's alcohol level is 259. The patient says he drinks alcohol regularly, 6 mixed drinks every day. The patient smoked 2 packs a day, but quit about 4 months ago. The patient is alert and awake. Denies any chest pain. Currently, no shortness of breath, but the patient says he gets short of breath on exertion. He can walk 1 block before he gets short of breath. Denies any headache. No blurred visions, no earache, no runny nose, no sore throat, no cough, no difficulty swallowing. Appetite is okay. No nausea, no abdominal pain. Normal bowel and bladder movements. Admission Exam Per Admitting Provider GENERAL: The patient is of moderate build, not in acute distress. VITAL SIGNS: Temperature afebrile, pulse 109, respiratory rate 18, blood pressure 126/52, oxygen 95% on room air. HEENT: Pupils equal, round and reactive to light. Oral mucosa moist. NECK: No JVD, no neck masses. CARDIOVASCULAR: S1 and S2 heard. Regular rate and rhythm. No murmur, no gallop. RESPIRATORY SYSTEM: Normal AP diameter. No accessory muscle use. No wheezing, no crackles. ABDOMEN: Soft, bowel sounds present, nontender, no distention. CENTRAL NERVOUS SYSTEM: Cranial nerves II-XII grossly intact, nonfocal. EXTREMITIES: Painful right shoulder movements. Right lower extremity is externally rotated. No erythema or edema seen of the lower extremities. Principal Diagnosis Right Femoral Neck Fracture; Right Proximal Humerus Fx Discharge Exam Lying in bed with minimal distress due to right shoulder and right hip pain Constitutional well developed, well nourished, + ill appearing and + obese Eyes PERRL, conjunctivae normal, anicteric sclerae ENMT external ear and nose normal, oropharynx normal Neck trachea midline, no thyromegaly Respiratory no respiratory distress Auscultation: + crackles (Occasional crackles at the bases); no diminished lung sounds and no wheezes (Minimal wheezing anteriorly) Cardiovascular Rate/Rhythm: regular rate, regular rhythm and + tachycardic Heart Sounds: normal S1 and normal S2; no murmur Extremities: + edema (Trace edema bilaterally) Gastrointestinal (Abdomen) Inspection/Auscultation: + abdomen distended and normal bowel sounds Percussion/Palpation: abdomen soft; abdomen nontender Musculoskeletal Extremities: + limited ROM of extremities (Right upper extremity) and + leg externally rotated (Right) Neurologic PERRL, EOMI, accommodation nl, no face palsy, no dysarthria Psychiatric A+Ox3, euthymic affect Lymphatic no cervical or axillary lymphadenopathy Discharge Data Allergies Allergy/AdvReac Type Severity Reaction Status Date / Time No Known Drug Allergies Allergy Unknown NKDA Verified 03/16/22 01:49 Consultations 03/16/22 03:47 ED Decision to Admit Stat 03/16/22 11:02 Consult Orthopedic Surgery Routine 03/18/22 11:40 Consult Infectious Diseases Routine Procedures Performed Operation Date: 03/17/22 08:20 <No data on this case meets the specified criteria> Operation Date: 03/23/22 09:00 Actual Procedures p Right Cemented Bipolar Hemiarthroplasty(Right) - Richie Shaikh MD Ordered Studies 03/16/22 01:23 CT cervical spine wo con Urgent CT head/brain wo con Urgent 03/26/22 08:40 US - OR guided needle placemen Routine Hospital Course (1) Fall: (2) Closed fracture of right hip: Mechanical fall on the right side when he tripped on the steps as he was coming down in his apartment Right Hip xray showed acute mildly impacted and slightly displaced transcervical fracture of the right femur. There is no contraindication for proposed surgery Remains hemodynamically stable with blood pressure on the upper side and minimally tachycardic Repeat blood culture from 03/19/2022 is negative so far S/P day #3 right cemented bipolar hemiarthroplasty performed by Dr. Shaikh Hemoglobin remains stable at 9.5 Continue pain control Continue incentive spirometry Ortho recommended weightbearing as tolerated right lower extremity. Has been accepted to [facility] and will be transferred this afternoon to continue with the physical therapy Sepsis secondary to coagulase-negative staph bacteremia present on admission No definite source as of yet Has been on intravenous vancomycin and Zosyn Sensitivity-sensitive to clindamycin daptomycin, oxacillin, tetracycline, trimethoprim sulfamethoxazole and vancomycin ID on board Blood culture is growing gram-negative staph not lugdunsis-Zosyn has been stopped TTE -technically limited study, LV ejection fraction is normal with EF of 60 to 65%, no regional wall motion abnormalities, poorly visualized valvular anatomy without significant stenosis and regurgitation No more fever and or chills Repeat Blood cultures from 03/19/2022 remains negative so far Case discussed with ID on Wednesday that recommended to complete 4 weeks course of antibiotic with IV Vanco I reached out with ID today after Pharmacy suggested to transition to Ancef. ID agreed to transition to Ancef to complete a total of 4 weeks course of abx from the negative blood cx on 03/19 Ultrasound-guided line will be placed and intubated to continue next 3 weeks as per recommendation (3) Closed right humeral fracture: Secondary to mechanical fall Ortho recommended conservative management Continue Nonweightbearing and no active motion of right upper extremity Continue sling for comfort Follow-up with orthopedics clinic about a week after discharge for repeat x-rays of the shoulder. (4) Alcoholism: History of chronic alcoholism Has been under withdrawal protocol No symptoms of active withdrawal at this time No symptoms of withdrawal Counseling on alcohol cessation No signs and or symptoms of withdrawal (5) COPD (chronic obstructive pulmonary disease): History of COPD without any exacerbation No evidence of pneumonia on chest x-ray No wheezing and/or shortness of breath Stable and has been saturating on room air (6) Sleep apnea: Stable (7) Hypertension: Has been on amlodipine and lisinopril As needed clonidine Continue monitor BP (8) History of seizure disorder: No medications for seizure Continue seizure precaution DVT prophylaxis On subq heparin DVT prophylaxis will be given with Xarelto or Eliquis as per Ortho Total Time Total Time Spent Total Time Spent (In Minutes): 45 minutes Discharge Plan Discharge Items Patient Disposition: Transfer [facility] Reason For Visit: FALL Discharge Diagnosis: Right Femoral Neck Fracture; Right Proximal Humerus Fx Condition on Discharge: Fair Activity: Per Instructions section Weightbearing: Right weightbearing Weightbearing Comment: as tolerated with walker; No weight on right arm Non-emergency contact: Surgeon Call non-emergency contact if: you have any medication questions, your symptoms worsen, your pain is not controlled, your temperature is above 101.5, your wound has increased redness and your wound has increased drainage Follow-up/Referrals: Lynn Patel MD [Primary Care Provider] - Richie Shaikh MD [Surgeon] - (Follow up in 14 days from the day of surgery for your first post operative wound check ) Diet: Heart Healthy Addtl Attending Provider Instructions: Please take precautions to avoid falls Take your medications as advised Please finish the course of antibiotic Please check CBC and CMP weekly until he is on antibiotic Eliquis is for 1 month Addtl Texture Artist Provider Instructions: RIGHT PROXIMAL HUMERUS FRACTURE: NONWEIGHTBEARING ON THE RIGHT UPPER EXTREMITY. SLING AT ALL TIMES TO IMMOBILIZE THE PROXIMAL HUMERUS. ACTIVITY RECOMMENDATIONS: SELF CARE INSTRUCTIONS AFTER TOTAL HIP REPLACEMENT Until the incision and soft tissues around your hip have healed, there is a possibility that the hip prosthesis could dislocate. A. Observe the following precautions to prevent dislocation: 1. Don't bend your hip greater than 90 degrees. 2. Avoid crossing your legs or ankles while standing or lying. 3. Sit with your feet placed 6 inches apart. 4. When sitting, keep your knees below your hips. Sit on a firm surface, avoid deep, soft chairs and couches. Use an elevated toilet seat in the bathroom. 5. Don't bend over at the waist. Use a long handled shoehorn and a sock aid to help you put on your shoes and socks. A set up operator tool can help you product picker objects that are too high or too low to reach. 6. Keep car riding to a minimum for at least one month after surgery. B. Your balance may be shaky for a while. Use crutches or a walker until directed by your doctor. C. Use hand rails when walking on stairs. D. Wear low heeled shoes with non-slip soles. E. Be sure that your floors are free of things that could trip you - throw rugs, electrical cords, small objects. Avoid wet and waxed floors, especially with crutches and canes. F. Try to walk several times a day with rest periods between. G. Continue with all the exercises taught to you in the hospital. Again, make walking a part of your daily routine. SPECIAL CARE INSTRUCTIONS: VERY IMPORTANT TO READ AND REVIEW A. You may still be at risk for phlebitis and blood clots. 1. Wear surgical stockings (MOLLY hose) for 2 weeks after surgery to improve circulation and reduce swelling. 2. You will be on a type of anticoagulation medication for one month for DVT prophylaxis. B. You must take antibiotics before having dental work, bladder, bowel and other surgery. Your doctor will provide you with a permanent card to carry describing precautions. C. Call [facility] if you have a fever, redness or swelling around the incision, cloudy drainage from incision, or sudden increase in pain in your hip, not relieved by your regular pain medication. D. Please call the office at if you have any concerns or questions about your operation or recovery. * YOU MAY SHOWER, NO TUB BATHS UNTIL CLEARED BY YOUR DOCTOR. * WEAR MOLLY HOSE 20 HOURS PER DAY FOR 2 WEEKS. * YOU SHOULD USE A WALKER OR CRUTCHES FOR 2-4 WEEKS. THIS WILL HELP PREVENT STRAIN ON YOUR HIP MUSCLE AND ALLOW IT TO HEAL PROPERLY. YOU MAY WEAN TO A CANE TOLERATED. * MOST PATIENTS WILL HAVE HOME NURSING FOR THERAPY. IF YOU DECIDE TO DO OUTPATIENT PHYSICAL THERAPY, PLEASE SCHEDULE THIS 3 TIMES PER WEEK. * JAKE Dressing - This is a large suction dressing covering your incision. This will help pull any excess drainage from the wound and allow your incision to heal properly. You may shower with this if you can keep the unit outside of the shower. If any bleeding or leakage is noted please call your doctor's office. This will remain on your incision for 7 days and then should be removed. This can be done yourself or by the home nursing staff if applicable. The entire unit is disposable once removed. Once removed, keep incision clean and dry. If redness or drainage is noted, please call your surgeon. . FOLLOW UP VISIT: If appointment is not already scheduled: Please call [facility] to make a follow-up appointment for 2 weeks after your surgery at . Pending Studies at Discharge: No Stand-Alone Forms: My [facility] Skilled Items Patient informed of condition?: Yes DNR: No Discharge Level of Care: Skilled Communicable Disease: No Discharge Prognosis: Stable Lines: None Urinary Catheter: Yes Medications and DC Order Prescriptions: New oxycodone 5 mg Tablet 5 mg PO QID PRN (Reason: pain) 5 Days Qty: 15 RF: 0 Eliquis 2.5 mg Tablet 2.5 mg PO BID 30 Days Qty: 60 RF: 0 folic acid 1 mg tablet 1,000 mcg PO DAILY Qty: 30 RF: 0 thiamine HCl (vitamin B1) 100 mg tablet 100 mg PO DAILY Qty: 30 RF: 0 multivitamin with folic acid [Daily-Erik (with folic acid)] 400 mcg Tablet 1 tab PO QAM 30 Days Qty: 30 RF: 0 cefazolin 2 gram recon soln 1 g IV Q8H Qty: 25 RF: 0 Continued lisinopril 20 mg tablet 20 mg PO DAILY RF: 0 trazodone 100 mg tablet 100 mg PO HS RF: 0 Spiriva with HandiHaler 18 mcg capsule, w/inhalation device 1 cap INHALATION DAILY RF: 0 amlodipine 10 mg tablet 10 mg PO DAILY RF: 0 Breo Ellipta 100-25 mcg/dose blister with device 1 ea INHALATION QAM RF: 0 albuterol sulfate 90 mcg/actuation HFA aerosol inhaler 2 puff INHALATION QID PRN (Reason: Shortness Of Breath Or Wheezing) RF: 0 furosemide [Lasix] 40 mg Tablet 40 mg PO DAILY PRN (Reason: Edema) RF: 0 ipratropium-albuterol 0.5 mg-3 mg(2.5 mg base)/3 mL Solution For Nebulization 3 ml INHALATION QID PRN (Reason: Shortness Of Breath Or Wheezing) RF: 0 montelukast 10 mg tablet 10 mg PO HS RF: 0 Discharge Orders: Discharge Order (Routine); Ordered 03/26/22 Ordered By: Filomena Fair Admission Data Admit Date/Time: 03/16/22 05:06 Attending Provider: Filomena Fair Admit Provider: Greyson Hernandez Primary Care Provider: Lynn Patel Other Providers: Sara Davenport ; Filomena Fair ; Greyson Hernandez ; Alireza Lee ; Daniel Humphries ; Gulshan To ; Jessica Atkinson ; Kamlesh Yusuf ; Ml Leo ; Mehran Singh ; David Montoya ; Abdelrahman Cortez ; Bradley Moya ; Job Jiménez ; Ivan Alcaraz ; Richie Shaikh ; Shayan Alanis ; Ml Herrera ; Mo Boone ; Jose English ; Sofía Wills ; Donta Begum ; Virginia Coats ; Todd Gutierrez ; Ned Kim ; Ayush Vasquez ; Israel Maloney I. ; Robert Diaz II ; Patience Clayton ; Abdelrahman Cloud ; Joni Vidal. Other Interventions: Discharge Summary Assessment (RN) Last Done: 03/26/22 15:59
[2022-03-26] MEDS ORDERED: APIXABAN 2.5 MG TAB PO SCH (21:00)
== END 2022-03-26 16:33 | DRG 521 ==
LOC: ED 22:58 → 2N 03-16 05:06 → SUATTDRO 03-16 05:06 → 2N 03-16 06:51
DX: Y90.9 Presence of alcohol in blood, level not specified; A41.1 Sepsis due to other specified staphylococcus; Z82.49 Family history of ischemic heart disease and other diseases of the circulatory system; S72.001A Fracture of unspecified part of neck of right femur, initial encounter for closed fracture; Z96.651 Presence of right artificial knee joint; Z87.891 Personal history of nicotine dependence; G47.33 Obstructive sleep apnea (adult) (pediatric); Z79.51 Long term (current) use of inhaled steroids; J44.9 Chronic obstructive pulmonary disease, unspecified; B99.9 Unspecified infectious disease; I10 Essential (primary) hypertension; Y99.8 Other external cause status; Z86.69 Personal history of other diseases of the nervous system and sense organs; Z82.5 Family history of asthma and other chronic lower respiratory diseases; S42.201A Unspecified fracture of upper end of right humerus, initial encounter for closed fracture; W10.9XXA Fall (on) (from) unspecified stairs and steps, initial encounter; Z91.81 History of falling; F10.20 Alcohol dependence, uncomplicated; Y92.038 Other place in apartment as the place of occurrence of the external cause; Z79.899 Other long term (current) drug therapy; R29.6 Repeated falls